=== PATIENT | female | born 1940 | race Caucasian/White ===

== ENCOUNTER → 2021-11-17 11:49 | Outpatient (CLI) | payer MEDICARE, OTHER, SELFPAY ==
[2021-11-17 12:43] LABS: COVID19 -Nasal RAPID Negative (Negative)
== END ==
PROVIDERS: Visit Provider Physician Assistant
DX: R05.9 Cough, unspecified (principal); R09.89 Other specified symptoms and signs involving the circulatory and respiratory systems
CPT/HCPCS: 87635

== ENCOUNTER → 2022-06-24 07:51 | Outpatient (CLI) | payer MEDICARE, OTHER, SELFPAY ==
--- NOTE | 2022-06-24 | DI.ECHO.S_ITS ---
[facility]---------+ [facility] +---------+ : : [address] : : : : [id number] : : : : Phone: [phone]+ Echocardiogram Report + + :Name: TONE CASTILLO Study Date: 06/24/2022 Height: 65 in : [id number] ReadingLocation: Weight: 139 lb : : Gender: Female BSA: 1.7 m2 : :: 1940 Age: 82 yrs BP: 141/71 mmHg: :Reason For Study: Cardiomyopathy : :Ordering Physician: CHARLY, : :ROXANNA Performed By: Edward Yee : :Referring: ROXANNA SINGH : + + Interpretation Summary 1) Normal left ventricular thickness, size, wall motion, and systolic function (EF 55-60%). 2) Normal right ventricular size and function. 3) No significant valvular abnormalities. 4) No prior Echo available for comparison. Procedure: A two-dimensional transthoracic echocardiogram with color flow and Doppler was performed. The study quality was technically adequate. There is no prior echocardiogram noted for this patient. Left Ventricle: The left ventricle is normal in size and wall thickness. Left ventricular systolic function is normal. The ejection fraction is estimated to be 55-60%. There are no focal wall motion abnormalities. Diastolic parameters suggest probable normal left ventricular diastolic function and normal filling pressures. Right Ventricle: The right ventricle is normal in size and function. Atria: Both atria are normal in size. The interatrial septum grossly appears intact with no obvious evidence for an atrial septal defect. Mitral Valve: The mitral valve is normal in structure and function. There is trace mitral regurgitation. Aortic Valve: The aortic valve is normal in structure and function. There is no aortic valve stenosis. No aortic regurgitation is present. Tricuspid Valve: The tricuspid valve is normal in structure and function. There is mild tricuspid regurgitation. The right ventricular systolic pressure is estimated to be at least 22 mmHg based on an estimated right atrial pressure of 3 mm Hg. Pulmonic Valve: The pulmonic valve is normal in structure and function. There is a trace or physiologic amount of pulmonic regurgitation. Great Vessels: The aortic root is normal size. The dimensions of the ascending aorta are normal. The IVC is of normal diameter and collapses greater than 50% with a sniff. This suggests a low right atrial pressure of 3 mm Hg. Pericardium/ Pleura There is no pericardial effusion. There is no pleural effusion. MMode/2D Measurements & Calculations LVIDd: 5.0 cm LVOT diam: 2.2 cm LVIDs: 3.6 cm Ao root diam: 3.1 cm FS: 28.0 % asc Aorta Diam: 3.5 cm IVSd: 1.1 cm LVPWd: 0.80 cm LV english. diameter/BSA (cm/m^2): 3.0 LV sys. diameter/BSA (cm/m^2): 2.1 LA dimension: 3.6 cm RA long axis: 5.1 cm LA A2 area: 20.9 cm2 IVC diam: 2.0 cm LA A4 area: 18.2 cm2 LA length (vol): 5.7 cm LA vol: 56.6 ml LA vol index: 33.4 ml/m2 TAPSE_phl: 2.5 cm Doppler Measurements & Calculations Ao V2 max: 81.8 cm/sec LVOT Max Ellis: 66.6 cm/sec Ao V2 mean: 60.6 cm/sec LV V1 max P.8 mmHg Ao max P.0 mmHg LV V1 VTI: 17.9 cm Ao mean P.0 mmHg OMERO(I,D): 3.5 cm2 Ao V2 VTI: 19.6 cm OMERO(V,D): 3.1 cm2 sev ratio: 0.91 OMERO indexed to BSA (cm^2/m^2): 2.0 MV E max ellis: 50.1 cm/sec TR max ellis: 219.0 cm/sec MV A max ellis: 78.0 cm/sec TR max P.2 mmHg MV E/A: 0.64 Med Peak E' Ellis: 5.7 cm/sec E/E' med: 8.8 Lat Peak E' Ellis: 6.1 cm/sec E/E' lat: 8.2 E/e' average: 8.5 MV dec time: 0.20 sec SV(LVOT): 68.0 ml AV VR_phl: 0.81 OMERO(VTI)/BSA_phl: 2.0 MV P1/2t-pr_phl: 57.0 msec Reading Physician:11:46 AM
== END ==
PROVIDERS: PCP Family Medicine; Referring Provider Internal Medicine Cardiovascular Disease; Visit Provider Internal Medicine Cardiovascular Disease
DX: I49.3 Ventricular premature depolarization (principal); I47.1 Supraventricular tachycardia; I07.1 Rheumatic tricuspid insufficiency
CPT/HCPCS: 93306

== ENCOUNTER 2023-08-10 06:42 | Inpatient (IN) | payer MEDICARE, OTHER, SELFPAY ==
[2023-08-10] VITALS (24 sets, daily range): BP systolic 98–150; BP diastolic 37–72; PULSE 51–69; RESP 11–38; TEMP 36.2–37.2; O2SAT 91–97; BMI 24.0
--- NOTE | 2023-08-10 | DI.RAD.S_ITS ---
PROCEDURE: XR PELVIS 1-2V INDICATIONS: POST OP TECHNIQUE: Intra-operative view of the pelvis and hip acquired. COMPARISON: [facility], , XR PELVIS 1-2V, 08/10/2023, 14:58. FINDINGS: Bones: Intraoperative devices prior to placement of arthroplasty prostheses are in expected positions. No fractures or suspicious bony lesions. Soft tissues: Overlying surgical retractors are present, along with other intraoperative changes. IMPRESSION: Intraoperative left hip prosthesis radiographs Approved by: Oj Park M.D. on 08/10/2023 at 17:34
--- NOTE | 2023-08-10 06:45 | DI.RAD.S_ITS ---
PROCEDURE: XR HIP W PEL IF DONE LT 2V INDICATIONS: Left hip pain after ground-level fall. TECHNIQUE: 2 views of the hip were acquired. COMPARISON: None. FINDINGS: Bones: Transverse fracture through the mid left femoral neck noted with superior subluxation of the distal fracture fragment. Femoral head resides appropriately in acetabulum. Pelvic ring intact. Soft tissues: No suspicious soft tissue calcifications or masses. IMPRESSION: Displaced left femoral neck fracture Note: This final report is concordant with the preliminary after-hours interpretation provided by [employer] Approved by: Oj Park M.D. on 08/10/2023 at 8:09
--- NOTE | 2023-08-10 07:02 | DI.RAD.S_ITS ---
PROCEDURE: XR CHEST 1V INDICATIONS: fall TECHNIQUE: One view of the chest was acquired. COMPARISON: None. FINDINGS: Surgical changes and devices: None. Lungs and pleura: Lungs are clear. No pleural effusions or pneumothorax. Mediastinum: Mediastinal contours appear normal. Heart size is normal. Retrocardiac hiatal hernia. Atherosclerotic vascular calcification noted in the aortic arch. Bones and chest wall: No suspicious bony lesions. Overlying soft tissues appear unremarkable. IMPRESSION: No acute cardiopulmonary findings. Hiatal hernia. Note: This final report is concordant with the preliminary after-hours interpretation provided by [employer] Approved by: Oj Park M.D. on 08/10/2023 at 8:08
--- NOTE | 2023-08-10 07:17 | ED_ITS ---
HPI - Extremity Injury (Lower) General Chief Complaint: Extremity Injury, Lower Stated Complaint: GLF last night. L hip pain Time Seen by Provider: 08/10/23 06:45 Source: patient and EMS Mode of arrival: EMS History of Present Illness HPI Narrative: Patient 83-year-old female history hyperlipidemia, hypertension presenting today with ground level fall. She reports that around 6:00 p.m. last night shows getting out of her recliner when she tripped and fell onto her left side. She initially was able to get up however this morning she was moving around and heard a pop. Unable to bear weight. She denies hitting her head no loss of c onsciousness no nausea or vomiting. No other injury. She is not on any antiplatelet or anticoagulation medication. Related Data Home Medications Medication Instructions Recorded Confirmed alendronate 70 mg tablet (Fosamax) 70 mg PO QWEEK 11/17/21 11/17/21 famotidine 10 mg tablet 10 mg PO DAILY 11/17/21 11/17/21 lovastatin 10 mg tablet 10 mg PO DAILY 11/17/21 11/17/21 propranolol 60 mg capsule,24 60 mg PO DAILY 11/17/21 11/17/21 hr,extended release Allergies Allergy/AdvReac Type Severity Reaction Status Date / Time No Known Drug Allergies Allergy Unverified 11/17/21 11:25 Review of Systems Review of Systems ROS Unobtainable: All systems reviewed & are unremarkable except as noted in HPI and below Patient History Social History Smoking Status: Never smoker Smoking Status: Never smoker Substance Use Type: does not use Exam Initial Vital Signs Initial Vital Signs: Vital Signs Temperature 97.5 F L 08/10/23 06:45 Pulse Rate 56 L 08/10/23 06:45 Respiratory Rate 18 08/10/23 06:45 Blood Pressure 131/63 08/10/23 06:45 Pulse Oximetry 91 08/10/23 06:45 Oxygen Delivery Method Room Air 08/10/23 06:45 GENERAL: Alert 83-year-old female well-appearing and in no acute distress. HEENT: Head atraumatic,EOMI, pupils reactive, face symmetric, moist mucous mem branes CARDIOVASCULAR: Regular rate and rhythm without murmurs, rubs or gallops. RESPIRATORY: Breath sounds equal bilaterally, no wheezes rales or rhonchi. ABDOMEN: Soft, nontender. Normoactive bowel sounds all 4 quadrants. No guarding or rebound. EXTREMITIES: Normal range of motion, no clubbing or edema. Neurovascularly intact Left leg shortened internally rotated distal pedal pulse intact pain at hip right hip is nontender NEUROLOGICAL: Alert and oriented x4. SKIN: Warm, dry, no laceration, no petechiae, no rashes or lesions. Course Orders Ordered: ED Orders 08/10/23 06:45 XR hip w pel if done LT 2V Stat 08/10/23 07:02 Chest [XR chest 1V] Stat 08/10/23 07:47 CBC Auto Diff [Complete Blood Count AUTO DIFF] Stat CMP [Comprehensive Metabolic Panel] Stat Acetaminophen (Acetaminophen 325 Mg Tablet) 650 mg PO Q6H PRN PRN Reason: Fever/Mild Pain (1-3) Sodium Chloride (Normal Saline 0.9%) 1,000 mls @ 100 mls/hr IV CONT RACQUEL Stop: 08/10/23 21:14 Last Admin: 08/10/23 09:45 Dose: 100 mls/hr Documented By: JESS Melatonin (Melatonin 3 Mg Tablet) 6 mg PO BEDTIME PRN PRN Reason: Insomnia Morphine Sulfate (Morphine 2 Mg/Ml Inj) 2 mg IV Q4HR PRN PRN Reason: Pain, Moderate (4-6) Naloxone HCl (Naloxone 0.4 Mg/Ml Vial) 0.2 mg IV Q2MIN PRN PRN Reason: Opiate Reversal Ondansetron HCl (Ondansetron 4 Mg/2 Ml Inj) 4 mg IV Q8HR PRN PRN Reason: Nausea And Vomiting Last Admin: 08/10/23 09:45 Dose: 4 mg Documented By: JESS Oxycodone HCl (Oxycodone Ir 5 Mg Tablet) 5 mg PO Q4HR PRN PRN Reason: Pain, Moderate (4-6) Oxycodone HCl (Oxycodone Ir 10 Mg Tablet) 10 mg PO Q4HR PRN PRN Reason: Pain, Severe (7-10) Last Admin: 08/10/23 09:47 Dose: 10 mg Documented By: JESS Polyethylene Glycol (Polyethylene Glycol 3350 17 Gm Powd.Pack) 17 gm PO DAILY PRN PRN Reason: Constipation Propranolol HCl (Propranolol 10 Mg Tablet) 30 mg PO BID RACQUEL Sennosides (Sennosides 8.6 Mg Tablet) 8.6 mg PO BID PRN PRN Reason: Constipation Discontinued Medications Morphine Sulfate (Morphine 2 Mg/Ml Inj) 2 mg IV NOW ONE Stop: 08/10/23 07:18 Last Admin: 08/10/23 07:28 Dose: 2 mg Documented By: NR Vital Signs Vital signs: Vital Signs - 8 hr 08/10/23 06:45 08/10/23 06:48 08/10/23 06:48 Temperature 97.5 F L Pulse Rate 56 L 57 L Respiratory Rate 18 18 Blood Pressure 131/63 128/60 Pulse Oximetry 91 92 Oxygen Delivery Method Room Air Room Air 08/10/23 07:00 08/10/23 07:00 08/10/23 07:30 Temperature Pulse Rate 58 L 52 L Respiratory Rate 15 24 Blood Pressure 149/65 H Pulse Oximetry 92 91 Oxygen Delivery Method 08/10/23 07:31 08/10/23 07:31 08/10/23 08:00 Temperature Pulse Rate 51 L 54 L Respiratory Rate 23 27 H Blood Pressure 142/66 H Pulse Oximetry 92 95 Oxygen Delivery Method 08/10/23 08:01 08/10/23 08:01 08/10/23 08:30 Temperature Pulse Rate 54 L Respiratory Rate 30 H Blood Pressure 131/60 141/60 H Pulse Oximetry 96 Oxygen Delivery Method 08/10/23 08:30 08/10/23 09:00 08/10/23 09:01 Temperature Pulse Rate 51 L 58 L 57 L Respiratory Rate 26 H 34 H 38 H Blood Pressure Pulse Oximetry 96 95 94 Oxygen Delivery Method 08/10/23 09:01 Temperature Pulse Rate Respiratory Rate Blood Pressure 145/61 H Pulse Oximetry Oxygen Delivery Method MDM - Extremity Injury (Lower) Lab Data 08/10/23 07:47 08/10/23 07:47 Labs: Lab Results 08/10/23 08/10/23 08/10/23 Range/Units 07:47 07:47 07:47 WBC 8.5 (4.5-11.0) X10^3/uL RBC 4.24 (4.0-5.2) X10^6/uL Hgb 12.8 (12.0-16.0) g/dL Hct 37.8 (36-46) % MCV 89.1 (80-100) fL MCH 30.2 (26-34) PG MCHC 33.9 (30-36) % RDW 13.6 (11.6-14.8) % Plt Count 74 L (150-400) X10^3/uL Neut % (Auto) 81.9 H (50-75) % Lymph % (Auto) 7.4 L (25-40) % Linn % (Auto) 9.3 (3-14) % Eos % (Auto) 1.0 L (2-4) % Baso % (Auto) 0.4 (0-2) % Neut # (Auto) 7000 (0684-1360) /uL Lymph # (Auto) 600 L (2151-2456) /uL Linn # (Auto) 800 (0-900) /uL Eos # (Auto) 100 (0-450) /uL Baso # (Auto) 0 (0-100) /uL PT (10.1-12.7) SECONDS INR (0.9-1.3) Sodium 130 L (137-145) mmol/L Potassium 3.8 (3.4-5.1) mmol/L Chloride 101 (98-107) mmol/L Carbon Dioxide 29 (22-32) mmol/L BUN 20 H (7-17) mg/dL Creatinine 0.68 (0.52-1.04) mg/dL Estimated GFR > 60 (>60) mL/min BUN/Creatinine Ratio 29.4 H (6-22) Glucose 120 H (80-110) mg/dL Calcium 8.1 L (8.4-10.2) mg/dL Magnesium 2.0 (1.6-2.3) mg/dL Total Bilirubin 1.1 (0.2-1.3) mg/dL AST 30 (14-36) IU/L ALT 22 (<35) IU/L Alkaline Phosphatase 62 (38-126) U/L Total Protein 6.0 L (6.3-8.2) g/dL Albumin 3.5 (3.5-5.0) g/dL Globulin 2.5 (1.7-4.1) g/dL Albumin/Globulin Ratio 1.4 (1.0-2.8) 08/10/23 Range/Units 07:47 WBC (4.5-11.0) X10^3/uL RBC (4.0-5.2) X10^6/uL Hgb (12.0-16.0) g/dL Hct (36-46) % MCV (80-100) fL MCH (26-34) PG MCHC (30-36) % RDW (11.6-14.8) % Plt Count (150-400) X10^3/uL Neut % (Auto) (50-75) % Lymph % (Auto) (25-40) % Linn % (Auto) (3-14) % Eos % (Auto) (2-4) % Baso % (Auto) (0-2) % Neut # (Auto) (7391-3285) /uL Lymph # (Auto) (2460-4142) /uL Linn # (Auto) (0-900) /uL Eos # (Auto) (0-450) /uL Baso # (Auto) (0-100) /uL PT 13.3 H (10.1-12.7) SECONDS INR 1.2 (0.9-1.3) Sodium (137-145) mmol/L Potassium (3.4-5.1) mmol/L Chloride (98-107) mmol/L Carbon Dioxide (22-32) mmol/L BUN (7-17) mg/dL Creatinine (0.52-1.04) mg/dL Estimated GFR (>60) mL/min BUN/Creatinine Ratio (6-22) Glucose (80-110) mg/dL Calcium (8.4-10.2) mg/dL Magnesium (1.6-2.3) mg/dL Total Bilirubin (0.2-1.3) mg/dL AST (14-36) IU/L ALT (<35) IU/L Alkaline Phosphatase (38-126) U/L Total Protein (6.3-8.2) g/dL Albumin (3.5-5.0) g/dL Globulin (1.7-4.1) g/dL Albumin/Globulin Ratio (1.0-2.8) Imaging Data Extremity x-ray #1: Radiologist's Impression: PROCEDURE:? XR HIP W PEL IF DONE LT 2V ? INDICATIONS:? Left hip pain after ground-level fall. ? TECHNIQUE:? 2 views of the hip were acquired.? ? COMPARISON:? None. ? FINDINGS:? ? Bones:? Transverse fracture through the mid left femoral neck noted with superior subluxation of the distal fracture fragment.? Femoral head resides appropriately in acetabulum.? Pelvic ring intact. ? Soft tissues:? No suspicious soft tissue calcifications or masses.? ? IMPRESSION:? ? Displaced left femoral neck fracture ? ? Note:? This final report is concordant with the preliminary after-hours interpretation provided by [employer] ? Approved by: Oj Park M.D. on 08/10/2023 at 8:09? Chest x-ray: Radiologist's Impression: PROCEDURE:? XR CHEST 1V ? INDICATIONS:? fall ? TECHNIQUE:? One view of the chest was acquired.? ? COMPARISON:? None. ? FINDINGS:? ? Surgical changes and devices:? None.? ? Lungs and pleura:? Lungs are clear.? No pleural effusions or pneumothorax.? ? Mediastinum:? Mediastinal contours appear normal.? Heart size is normal.? Retrocardiac hiatal hernia. Atherosclerotic vascular calcification noted in the aortic arch. ? Bones and chest wall:? No suspicious bony lesions.? Overlying soft tissues appear unremarkable.? ? ? IMPRESSION:? ? No acute cardiopulmonary findings. Hiatal hernia. ? ? Note:? This final report is concordant with the preliminary after-hours interpretation provided by [employer] ? Approved by: Oj Park M.D. on 08/10/2023 at 8:08? [facility] Narrative Medical decision making narrative: Patient 83-year-old female with minimal comorbidities presenting today with left hip pain after fall. X-ray confirms a left femoral neck fracture. No other injuries reported not on antiplatelet or anticoagulation medication. Blood work is overall reassuring. Dr. Glorai ortho updated on patient's symptoms test results Dr. Riley accepts patient Discharge Plan Departure Patient Disposition: Admitted As Inpatient Clinical Impression: Closed hip fracture Admit Date/Time: 08/10/23 09:05 Admit Provider: Nadeem Riley
[2023-08-10] MEDS: MORPHINE 2 MG/ML INJ IV (07:28)
[2023-08-10 07:59] LABS: Add Manual Diff / Slide Review NO; Basophils Absolute Auto 0 /uL (0-100); Basophils Percent Auto 0.4 % (0-2); Eosinophils Absolute Auto 100 /uL (0-450); Hematocrit 37.8 % (36-46); Hemoglobin 12.8 g/dL (12.0-16.0); Lymphocytes Absolute Auto 600 /uL (1100-4500); Lymphocytes Percent Auto 7.4 % (25-40); Mean Corpuscular HGB Conc 33.9 % (30-36); Mean Corpuscular Hemoglobin 30.2 PG (26-34); Mean Corpuscular Volume 89.1 fL (80-100); Monocytes Absolute Auto 800 /uL (0-900); Monocytes Percent Auto 9.3 % (3-14); Neutrophils Absolute Auto 7000 /uL (1500-7000); Neutrophils Percent Auto 81.9 % (50-75); Platelet Count 74 X10^3/uL (150-400); Red Blood Cell Count 4.24 X10^6/uL (4.0-5.2); Red Cell Distribution Width 13.6 % (11.6-14.8); White Blood Cell Count 8.5 X10^3/uL (4.5-11.0)
[2023-08-10 08:06] LABS: Alanine Aminotransferase 22 IU/L (<35); Albumin 3.5 g/dL (3.5-5.0); Albumin Globulin Ratio 1.4 (1.0-2.8); Alkaline Phosphatase 62 U/L (38-126); Aspartate Aminotransferase 30 IU/L (14-36); BUN Creatinine Ratio 29.4 (6-22); Bilirubin Total 1.1 mg/dL (0.2-1.3); Blood Urea Nitrogen 20 mg/dL (7-17); Calcium 8.1 mg/dL (8.4-10.2); Carbon Dioxide 29 mmol/L (22-32); Chloride 101 mmol/L (98-107); Estimated Glomerular Filt Rate > 60 mL/min (>60); Globulin 2.5 g/dL (1.7-4.1); Glucose 120 mg/dL (80-110); HEMOLYSIS < 15 (0-50); Potassium 3.8 mmol/L (3.4-5.1); Sodium 130 mmol/L (137-145)
--- NOTE | 2023-08-10 09:11 | PM.HP.1 ---
History of Present Illness History of Present Illness Date Patient Seen: 08/10/23 Time Patient Seen: 14:00 Chief complaint: GLF last night. L hip pain Narrative: Ayad Whitley is an 83-year-old female with past medical history of osteoporosis, hypertension, and hyperlipidemia who presents with ground level fall resulting in left femoral neck fracture. Patient was getting up out of her recliner and lost her balance, landing on the hardwood floor on her left side. She had pain in her hip but only thought it was bruised because she was able to bear some weight on it. She waited until the next day and the pain continued to worsen so she presented to the ED where a left hip fracture was confirmed. She currently says her pain is manageable if she doesn't move her left leg. She denies striking her head. Did not lose consciousness. She denies lightheadedness, CP, SOB, NV, abd pain, dysuria or diarrhea. [facility] Social History household members: spouse Smoking Status: Never smoker alcohol intake: never Meds Home Medications and Allergies Home Medications Medication Instructions Recorded Confirmed Type alendronate 70 mg tablet (Fosamax) 70 mg PO QWEEK 11/17/21 11/17/21 History famotidine 10 mg tablet 10 mg PO DAILY 11/17/21 11/17/21 History lovastatin 10 mg tablet 10 mg PO DAILY 11/17/21 11/17/21 History propranolol 60 mg capsule,24 60 mg PO DAILY 11/17/21 11/17/21 History hr,extended release Allergies Allergy/AdvReac Type Severity Reaction Status Date / Time No Known Drug Allergies Allergy Unverified 11/17/21 11:25 Review of Systems Review of Systems Narrative: All other systems reviewed with the patient and are negative unless otherwise stated. Exam Vital Signs (past 8 hours): - 08/10/23 06:45 08/10/23 06:48 08/10/23 06:48 Temperature 97.5 F L Pulse Rate 56 L 57 L Respiratory Rate 18 18 Blood Pressure 131/63 128/60 Pulse Oximetry 91 92 Oxygen Delivery Method Room Air Room Air 08/10/23 07:00 08/10/23 07:00 08/10/23 07:30 Temperature Pulse Rate 58 L 52 L Respiratory Rate 15 24 Blood Pressure 149/65 H Pulse Oximetry 92 91 Oxygen Delivery Method 08/10/23 07:31 08/10/23 07:31 08/10/23 08:00 Temperature Pulse Rate 51 L 54 L Respiratory Rate 23 27 H Blood Pressure 142/66 H Pulse Oximetry 92 95 Oxygen Delivery Method 08/10/23 08:01 08/10/23 08:01 08/10/23 08:30 Temperature Pulse Rate 54 L Respiratory Rate 30 H Blood Pressure 131/60 141/60 H Pulse Oximetry 96 Oxygen Delivery Method 08/10/23 08:30 08/10/23 09:00 08/10/23 09:01 Temperature Pulse Rate 51 L 58 L 57 L Respiratory Rate 26 H 34 H 38 H Blood Pressure Pulse Oximetry 96 95 94 Oxygen Delivery Method 08/10/23 09:01 Temperature Pulse Rate Respiratory Rate Blood Pressure 145/61 H Pulse Oximetry Oxygen Delivery Method Oxygen Delivery Method Room Air Narrative Exam Narrative: GEN: no acute distress, pleasant eldlerly woman HEENT: moist mucous membranes, PERRL NECK: trachea midline, no JVD CV: regular rate and rhythm, no murmurs PULM: clear bilaterally ABD: soft, nontender, nondistended, no organomegaly EXT: warm and well perfused with no edema, LLE externally rotated NEURO: awake, alert, oriented, no focal deficits Objective Labs 08/10/23 07:47 08/10/23 07:47 Labs: Laboratory Results - last 24 hr 08/10/23 08/10/23 07:47 07:47 WBC 8.5 RBC 4.24 Hgb 12.8 Hct 37.8 MCV 89.1 MCH 30.2 MCHC 33.9 RDW 13.6 Plt Count 74 L Neut % (Auto) 81.9 H Lymph % (Auto) 7.4 L Vernon % (Auto) 9.3 Eos % (Auto) 1.0 L Baso % (Auto) 0.4 Neut # (Auto) 7000 Lymph # (Auto) 600 L Vernon # (Auto) 800 Eos # (Auto) 100 Baso # (Auto) 0 Sodium 130 L Potassium 3.8 Chloride 101 Carbon Dioxide 29 BUN 20 H Creatinine 0.68 Estimated GFR > 60 BUN/Creatinine Ratio 29.4 H Glucose 120 H Calcium 8.1 L Total Bilirubin 1.1 AST 30 ALT 22 Alkaline Phosphatase 62 Total Protein 6.0 L Albumin 3.5 Globulin 2.5 Albumin/Globulin Ratio 1.4 Assessment & Plan Assessment and plan (1) Fracture of left hip due to osteoporosis: Status: Acute (2) Closed hip fracture: Status: Acute (3) Thrombocytopenia: Status: Acute Assessment & Plan narrative: # left hip fracture -tripped after getting out of recliner -hip x-ray confirms left femoral neck fracture -Dr. Faizan shaw consulted -pain control as needed -NPO for surgery today, will need total hip replacement per ortho # osteoporosis -patient currently on Fosamax weekly, holding while admitted -would likely benefit from addition of injectable osteoporosis medications ground level fall resulting in hip fracture -f/u with PCP # hyperlipidemia -hold lovastatin as not on formulary # hypertension -continue home propranolol Code status is full code. DVT prophylaxis with SCDs. Proxy is Anton. I have reviewed home meds and used all available resources to reconcile the home meds. Case discussed with ED physician/APC and patient will be admitted to the hospitalist service for further workup and management. This patient will be admitted as inpatient and will require greater than 2 midnights of hospital time to treat left hip fracture.
[2023-08-10 09:20] LABS: INR 1.2 (0.9-1.3); Prothrombin Time 13.3 SECONDS (10.1-12.7)
[2023-08-10] MEDS: SODIUM CHLORIDE 0.9% 1,000 ML 100 ML IV (09:45)
[2023-08-10] MEDS: ONDANSETRON 4 MG/2 ML INJ IV ×2 (09:45→17:36)
[2023-08-10] MEDS: OXYCODONE IR 10 MG TABLET PO (09:47)
--- NOTE | 2023-08-10 10:21 | PM.CN ---
History of Present Illness Consult details Date Patient Seen: 08/10/23 Time Patient Seen: 10:00 Chief complaint: GLF last night. L hip pain Narrative: 83-year-old female who tripped and fell last night landing on her left hip. Patient was initially still able to ambulate. Had pain to the hip but was still able to get around. From the fall denies any loss of consciousness or hitting her head. Then early this morning she got up to go to bathroom and felt a pop to the hip and then had a increase in pain and difficulty ambulating. Due to this fact patient was taken to the emergency room where x-rays showed a displaced femoral neck fracture. Meds Home Medications and Allergies Home Medications Medication Instructions Recorded Confirmed Type alendronate 70 mg tablet (Fosamax) 70 mg PO QWEEK 11/17/21 11/17/21 History famotidine 10 mg tablet 10 mg PO DAILY 11/17/21 11/17/21 History lovastatin 10 mg tablet 10 mg PO DAILY 11/17/21 11/17/21 History propranolol 60 mg capsule,24 60 mg PO DAILY 11/17/21 11/17/21 History hr,extended release Allergies Allergy/AdvReac Type Severity Reaction Status Date / Time No Known Drug Allergies Allergy Unverified 11/17/21 11:25 Exam Vital Signs (past 8 hours): - 08/10/23 06:45 08/10/23 06:48 08/10/23 06:48 Temperature 97.5 F L Pulse Rate 56 L 57 L Respiratory Rate 18 18 Blood Pressure 131/63 128/60 Pulse Oximetry 91 92 Oxygen Delivery Method Room Air Room Air 08/10/23 07:00 08/10/23 07:00 08/10/23 07:30 Temperature Pulse Rate 58 L 52 L Respiratory Rate 15 24 Blood Pressure 149/65 H Pulse Oximetry 92 91 Oxygen Delivery Method 08/10/23 07:31 08/10/23 07:31 08/10/23 08:00 Temperature Pulse Rate 51 L 54 L Respiratory Rate 23 27 H Blood Pressure 142/66 H Pulse Oximetry 92 95 Oxygen Delivery Method 08/10/23 08:01 08/10/23 08:01 08/10/23 08:30 Temperature Pulse Rate 54 L Respiratory Rate 30 H Blood Pressure 131/60 141/60 H Pulse Oximetry 96 Oxygen Delivery Method 08/10/23 08:30 08/10/23 09:00 08/10/23 09:01 Temperature Pulse Rate 51 L 58 L 57 L Respiratory Rate 26 H 34 H 38 H Blood Pressure Pulse Oximetry 96 95 94 Oxygen Delivery Method 08/10/23 09:01 Temperature Pulse Rate Respiratory Rate Blood Pressure 145/61 H Pulse Oximetry Oxygen Delivery Method Oxygen Delivery Method Room Air Narrative Exam Narrative: On exam elderly female who is alert and oriented x3 in no apparent distress. Bilateral upper extremities are free of any injury swelling or instability. Good range of motion of bilateral upper extremities with no pain. Right lower extremity also free of any abnormalities. Left lower extremity shows signs of shortening and internal rotation. Positive dorsiflexion and plantar flexion of the toes and ankle. Palpable pedal pulses. No sign of any ankle or knee swelling or instability. And compartments are soft. Objective Labs 08/10/23 07:47 08/10/23 07:47 Labs: Laboratory Results - last 24 hr 08/10/23 08/10/23 08/10/23 07:47 07:47 07:47 WBC 8.5 RBC 4.24 Hgb 12.8 Hct 37.8 MCV 89.1 MCH 30.2 MCHC 33.9 RDW 13.6 Plt Count 74 L Neut % (Auto) 81.9 H Lymph % (Auto) 7.4 L [place] % (Auto) 9.3 Eos % (Auto) 1.0 L Baso % (Auto) 0.4 Neut # (Auto) 7000 Lymph # (Auto) 600 L [place] # (Auto) 800 Eos # (Auto) 100 Baso # (Auto) 0 PT INR Sodium 130 L Potassium 3.8 Chloride 101 Carbon Dioxide 29 BUN 20 H Creatinine 0.68 Estimated GFR > 60 BUN/Creatinine Ratio 29.4 H Glucose 120 H Calcium 8.1 L Magnesium 2.0 Total Bilirubin 1.1 AST 30 ALT 22 Alkaline Phosphatase 62 Total Protein 6.0 L Albumin 3.5 Globulin 2.5 Albumin/Globulin Ratio 1.4 08/10/23 07:47 WBC RBC Hgb Hct MCV MCH MCHC RDW Plt Count Neut % (Auto) Lymph % (Auto) [place] % (Auto) Eos % (Auto) Baso % (Auto) Neut # (Auto) Lymph # (Auto) [place] # (Auto) Eos # (Auto) Baso # (Auto) PT 13.3 H INR 1.2 Sodium Potassium Chloride Carbon Dioxide BUN Creatinine Estimated GFR BUN/Creatinine Ratio Glucose Calcium Magnesium Total Bilirubin AST ALT Alkaline Phosphatase Total Protein Albumin Globulin Albumin/Globulin Ratio PFSH Tobacco & Substance Use Smoking Status: Never smoker Assessment & Plan Assessment & Plan narrative: Patient with a displaced left femoral neck fracture. Due to this injury patient will require a left hip hemiarthroplasty. Went over the procedure with the patient today. I will talk to my partners today who do hip replacements and we can figure out a timeframe for her surgery.
[2023-08-10] MEDS: PROPRANOLOL 10 MG TABLET 30 MG PO (12:28)
--- NOTE | 2023-08-10 14:03 | P.OP_ITS ---
Operative Date/Time/Diagnoses Date of procedure: 08/10/23 Time of procedure: 14:30 Pre-op diagnosis: Left femoral neck fracture, displaced Left osteoporotic hip fracture Thrombocytopenia chronic Post-op diagnosis: same Procedure & Clinicians Procedure: Partial hip replacement, endoprosthetic fixation of left femoral neck fracture CPT code 37655 Same procedure as scheduled: Yes Indications: Patient is an 83-year-old female that had a fall directly onto her left hip last night . she initially thought it was a bruise but was unable to ambulate the next morning was brought to the emergency room and diagnosed with a displaced left femoral neck fracture. She is a known history of osteoporosis has been on alendronate for several years. She was a community ambulator, does not use assistive devices. Lives at with her and walks a mile every day. No previous hip problems. Her daughter is with her in the room today. She is been indicated for endoprosthetic fixation of her left femoral neck fracture with a partial hip replacement. The risks and benefits of the procedure have been discussed with the patient and given the opportunity to ask questions. The risks of surgery include but are not limited to infection, periprosthetic fracture, persistence of pain, damage to nerves and blood vessels, posttraumatic arthritis, DVT, PE, cardiopulmonary complications and . The patient expressed a thorough understanding of the risks and benefits of surgery and has elected to proceed. Consent was signed today. The site of surgery was marked. During the operation, the services of a physician surgical appliance fitter were medically indicated and necessary to provide the exposure of the operative site for the surgical procedure and to maintain the limb in a proper position to carry out the operation safely and efficiently. Without a qualified residential living assistant being present this would extended the operative procedure and made the procedure technically more difficult to perform. Surgeon: Keesha Rudolph Transfer Car Operator Drier: Joellen Jacob Anesthesia Type: General and Local Operative Notes Findings: Displaced left femoral neck fracture Closure Type: primary Specimen(s): none sent Prosthetic devices, grafts, tissues, transplants, or devices: Lux +Nephew Synergy femur size 12, cemented Tandem head size unipolar 50 mm Neck +4 Centralizer 9 mm Restrictor small Estimated Blood Loss (mL): 200 Blood products transfused: none Tourniquet time (min): 0 Procedure in detail: Hemiarthroplasty for femoral neck fracture CPT code 94336. Patient was seen in the preoperative area the site of surgery was marked and informed consent confirmed. The patient was brought back to the operating room by the anesthesia team. Patient was positioned supine on the operative table. General anesthetic was administered. Patient was then moved into the lateral position. The hip entertainment centre manager positioner pads were then placed. A well-padded axillary roll was placed and the arms were appropriately positioned. The affected lower extremity was prepped and draped from the ankle to the iliac crest with ChloraPrep in the standard fashion sterile drapes were placed. Formal time-out procedure was performed confirming the patient's side and site of surgery, presence of informed consent, administration of appropriate preoperative antibiotics. Hip was approached through a standard posterior a pproach. Dissection was carried down through the skin and subcutaneous tissues sharply through the skin and then with the Bovie through the subcutaneous tissues. The fascia ron was exposed and opened. Fascia was opened using the Bovie and the gluteus gumaro was spread with finger retraction. The Charnley retractor was placed. The inflamed bursa was resected. The piriformis was then identified. A Cobra retractor was placed under the gluteus medius to help expose the external rotators. The werewolf cauterizer was used to expose the external rotators and obtained hemostasis. The piriformis and short external rotators were tagged with a 2. FiberWire and divided of the trochanter. These were then retracted posteriorly to protect sciatic nerve. The femur was then flexed and internally rotated to present the femoral neck and the fracture. A neck cut was made and removed to expose the fracture and femoral head. A corkscrew and a Souza were used to remove the femoral head from the acetabulum. This was measured to fit a 50 mm head. Next the femur was presented. A clean- up neck cut was made fashion. The trial head size was trialed in the acetabulum. Attention was then turned to the femur. The canal was opened with a box cutting osteotome. This followed by the canal finer and a lateralizing Reamer. The tapered reamers were then used up to a size 12. Then broaching was sequentially done up to a size 12. Trial components were placed. The patient was stable in the position of sleep, squatting and could be put through a range of motion with 70? of internal rotation without dislocation. This was felt to be appropriate. An intraop a AP pelvis x-ray was obtained to assess component position. This was a little varus and the neck cut was a little high so this w as removed the neck cut recut and additional lateral bone taken and then the 12 broach was placed back in and the calcar planer was used and the head and neck trials placed back in place. Another intraoperative x-ray was taken that confirmed appropriate alignment of the stem. Leg lengths were just a few mm shortened it was felt that the +4 would be an appropriate neck. Final components were then selected. The final stem was a size 12. Femoral canal was prepared . The distal small restrictor was placed approximately 1 cm distal to the end of the planned implant. The bone was meticulously cleaned with pulse lavage. Canal was then packed with epi soaked gauze. Two packages of cement were mixed and carefully pressurized into the femoral canal. The femoral component was then placed without difficulty. This was held in place until the cement hardened-15 minutes. The repeat trial reduction showed good range of motion and stability. And equal lengths at the knees and heels. The final head and neck were then carefully placed. The wound was irrigated. The capsule and muscular flap was repaired with the 2. Ethibond. Next the short external rotators were repaired to the greater trochanter through drill holes in the greater trochanter using the 2.5 drill and a HoGlowing [place] suture Passer. These were tied with the leg in abduction. The wound was then irrigated again. The fascia ron was closed with 0 Vicryl and the subcutaneous layer was closed with 2-0 Vicryl and the skin with lynn. An Aquacel dressing was placed. A pillow was placed for protection. The drapes removed and the patient was taken to the recovery room in good condition. There no immediate complications from this procedure. All counts were correct. Postoperative AP pelvis x-ray was obtained in the PACU showed appropriate alignment of the cemented hip hemiarthroplasty with no evidence of fracture. Postoperative examined the PACU demonstrated active dorsiflexion plantar flexion of the ankle. Complications: none Post-operative Condition: stable Disposition: PACU Plan for aftercare: Weightbear as tolerated. Posterior hip precautions x6 weeks. Lovenox 40 mg subQ for a total of 4 weeks postoperatively. Follow up in Orthopedic Clinic in approximately 12-14 days for staple removal.
[2023-08-10] MEDS: TRANEXAMIC ACID 1,000 MG in SODIUM CHLORIDE 0.9% 100 ML 200 MG IV (14:20)
[2023-08-10] MEDS: CEFAZOLIN 2 GM/100 ML PREMIX 100 ML IV ×2 (14:30→22:10)
--- NOTE | 2023-08-10 14:56 | SUR.OPER ---
Lateral on a jarquin bag, head on pillow, gel axillary roll in place, bottom leg bent with gel pad under knee to foot, upper leg straight and supported with pillows. Upper arm supported by pillows and secured over bottom arm to padded arm board. Safety belt at hip, tape over blanket lower legs.
--- NOTE | 2023-08-10 15:16 | DI.RAD.S_ITS ---
PROCEDURE: XR PELVIS 1-2V INDICATIONS: surgery TECHNIQUE: 1 view of the lower pelvis acquired. COMPARISON: None. FINDINGS: Bones: Intraoperative left hip spacer in good position. Overlying operative instrumentation. Soft tissues: Overlying operative changes are noted. No suspicious soft tissue densities. IMPRESSION: Intraoperative study shows left hip arthroplasty in progress Approved by: [place] M.D. on 08/10/2023 at 19:01
[2023-08-10] MEDS: BUPIVACAINE LIPOSOME 266 MG/20 ML VIAL INJ (15:22)
[2023-08-10] MEDS: LACTATED RINGERS 1,000 ML 42 ML IV ×2 (16:07→16:47)
--- NOTE | 2023-08-10 17:25 | PC.NURSE ---
Pt arrived back to unit from PACU. Pt started feeling nauseated and vomited very little. Vomit was scant but looked dark brown, coffee ground consistency. Pt refusing dinner at this time. Tray left at bedside just in case. Awaiting pharm to verify meds to administer antiemetic. Pt has no c/o of pain at this time, looks comfortable but tired/groggy. VS stable, BP 147/72, 95% 2LO2, HR 57 and RR 16. Scds applied, LR@100 mls/hr as per order.
[2023-08-10] MEDS: LACTATED RINGERS 1,000 ML 100 ML IV ×2 (17:36→22:14)
[2023-08-10] MEDS: DOCUSATE 100 MG CAPSULE PO (20:33)
[2023-08-10] MEDS: ACETAMINOPHEN 325 MG TABLET 650 MG PO (20:33)
[2023-08-11] VITALS (21 sets, daily range): BP systolic 69–122; BP diastolic 29–46; PULSE 56–91; RESP 14–19; TEMP 36.9–37.4; O2SAT 92–97
[2023-08-11] MEDS: CEFAZOLIN 2 GM/100 ML PREMIX 100 ML IV (05:45)
[2023-08-11 05:52] LABS: Add Manual Diff / Slide Review NO; Basophils Absolute Auto 0 /uL (0-100); Eosinophils Absolute Auto 0 /uL (0-450); Hemoglobin 9.9 g/dL (12.0-16.0); Lymphocytes Absolute Auto 800 /uL (1100-4500); Lymphocytes Percent Auto 5.6 % (25-40); Mean Corpuscular Hemoglobin 30.4 PG (26-34); Mean Corpuscular Volume 89.3 fL (80-100); Monocytes Absolute Auto 1200 /uL (0-900); Monocytes Percent Auto 8.7 % (3-14); Neutrophils Absolute Auto 11700 /uL (1500-7000); Neutrophils Percent Auto 85.7 % (50-75); Platelet Count 71 X10^3/uL (150-400); Red Blood Cell Count 3.25 X10^6/uL (4.0-5.2); Red Cell Distribution Width 13.4 % (11.6-14.8); White Blood Cell Count 13.6 X10^3/uL (4.5-11.0)
[2023-08-11 06:05] LABS: BUN Creatinine Ratio 27.5 (6-22); Blood Urea Nitrogen 19 mg/dL (7-17); Calcium 7.1 mg/dL (8.4-10.2); Carbon Dioxide 25 mmol/L (22-32); Chloride 99 mmol/L (98-107); Estimated Glomerular Filt Rate > 60 mL/min (>60); Glucose 130 mg/dL (80-110); HEMOLYSIS < 15 (0-50); Potassium 3.8 mmol/L (3.4-5.1); Sodium 130 mmol/L (137-145)
--- NOTE | 2023-08-11 07:50 | PM.PNPO.1 ---
Subjective Subjective Date Patient Seen: 08/11/23 Time Patient Seen: 07:20 Interval history: Patient is resting comfortably in bed this morning with her daughter at bedside. She states she is having no pain while at rest. Denies chest pain and shortness of breath. States that her mass has been dry and asked for something other than water. Patient is looking forward to working with physical therapy. Exam Vital Signs (past 8 hours): - 08/10/23 23:54 08/11/23 00:50 08/11/23 02:39 Temperature 98.3 F 98.5 F Pulse Rate 65 64 67 Respiratory Rate 17 14 Blood Pressure 98/37 L 117/41 L 108/46 L Pulse Oximetry 94 95 Oxygen Flow Rate 1 1 08/11/23 03:05 08/11/23 06:00 Temperature Pulse Rate 68 Respiratory Rate 17 Blood Pressure 108/46 L 108/43 L Pulse Oximetry 97 95 Oxygen Flow Rate 1 1 Fraction of Inspired Oxygen 24 SaO2/FiO2 Ratio 404 Oxygen Delivery Method Nasal Cannula Oxygen Flow Rate 1 Narrative Exam Narrative: Pleasant 83-year-old female. Awake, alert, and oriented. Left hip Aquacel clean, dry, and intact. Strength and sensation intact to bilateral lower extremities. Bilateral calves soft, compressible, nontender with no palpable cords or masses. Brisk capillary refill. Objective Labs 08/11/23 10:30 08/11/23 Unknown Labs: Laboratory Results - last 24 hr 08/10/23 08/10/23 08/10/23 07:47 07:47 07:47 WBC 8.5 RBC 4.24 Hgb 12.8 Hct 37.8 MCV 89.1 MCH 30.2 MCHC 33.9 RDW 13.6 Plt Count 74 L Neut % (Auto) 81.9 H Lymph % (Auto) 7.4 L [place] % (Auto) 9.3 Eos % (Auto) 1.0 L Baso % (Auto) 0.4 Neut # (Auto) 7000 Lymph # (Auto) 600 L [place] # (Auto) 800 Eos # (Auto) 100 Baso # (Auto) 0 PT INR Sodium 130 L Potassium 3.8 Chloride 101 Carbon Dioxide 29 BUN 20 H Creatinine 0.68 Estimated GFR > 60 BUN/Creatinine Ratio 29.4 H Glucose 120 H Calcium 8.1 L Magnesium 2.0 Total Bilirubin 1.1 AST 30 ALT 22 Alkaline Phosphatase 62 Total Protein 6.0 L Albumin 3.5 Globulin 2.5 Albumin/Globulin Ratio 1.4 08/10/23 08/11/23 08/11/23 07:47 05:27 05:27 WBC 13.6 H D RBC 3.25 L Hgb 9.9 L Hct 29.0 L MCV 89.3 MCH 30.4 MCHC 34.0 RDW 13.4 Plt Count 71 L Neut % (Auto) 85.7 H Lymph % (Auto) 5.6 L [place] % (Auto) 8.7 Eos % (Auto) 0.0 L Baso % (Auto) 0.0 Neut # (Auto) 44193 H Lymph # (Auto) 800 L [place] # (Auto) 1200 H Eos # (Auto) 0 Baso # (Auto) 0 PT 13.3 H INR 1.2 Sodium 130 L Potassium 3.8 Chloride 99 Carbon Dioxide 25 BUN 19 H Creatinine 0.69 Estimated GFR > 60 BUN/Creatinine Ratio 27.5 H Glucose 130 H Calcium 7.1 L Magnesium Total Bilirubin AST ALT Alkaline Phosphatase Total Protein Albumin Globulin Albumin/Globulin Ratio [facility] Social History household members: spouse Smoking Status: Never smoker alcohol intake: never Assessment & Plan Post-op Postoperative Procedures: Procedures Operation Date: 08/10/23 14:30 Actual Procedure Side Surgeon p Hip Hemiarthroplasty Paramjit Left Keesha Rudolph MD Postoperative day: 1 Postoperative status: doing well Postoperative status narrative: Patient is progressing well following left hip paramjit arthroplasty. Patient is concerned low blood pressures, but has not been symptomatic. Postoperative plan narrative: Plan to work with physical therapy today. Weightbearing as tolerated, posterior hip precautions. Continue multimodal pain regimen as needed. Continue to monitor blood pressure, treat as needed. Current plan is to discharge home with daughter when safe and able, potentially home health if needed. Follow up with Orthopedics in 2 weeks. Quality VTE Deep Vein Thrombosis/Pulmonary Embolism Present on Admission: No
[2023-08-11] MEDS: PANTOPRAZOLE DR 40 MG TABLET PO ×2 (09:17→21:10)
[2023-08-11] MEDS: DOCUSATE 100 MG CAPSULE PO ×2 (09:17→21:10)
--- NOTE | 2023-08-11 09:52 | PT.IIE ---
Addendum entered and electronically signed by Diajesse Vieyra PT 08/11/23 11:28: CORRECTION: Pt has LEFT femur fracture, not right. Original Note: Current Diagnoses Thrombocytopenia, unspecified (08/10/23) Age-related osteoporosis with current pathological fracture, left femur, initial encounter for fracture (08/10/23) Fracture of unspecified part of neck of unspecified femur, initial encounter for closed fracture (08/10/23) Surgery Performed Operation Date: 08/10/23 14:30 Actual Procedures p Hip Hemiarthroplasty Paramjit(Left) - Keesha Rudolph MD Physical Therapy Inpatient Evaluation/Re-Eval M1 PT/OT-IP Prior Functional Status Start: 08/11/23 08:23 Freq: NEEDED Status: Active Protocol: Document 08/11/23 09:52 AW (Rec: 08/11/23 11:13 AW [id number]) Medical Review Prior Functional Status Medical History Reviewed Yes Communication WNL. Pt is an effective verbal communicator. Mobility and Gait Independent. Walks about a mile each evening and tracks her activity with her phone. Activities of Daily Living and IADL's Independent with all ADL and IADL's. Social History Household Members spouse Living Arrangements House Number of Floors (Floors) One Floor Number of Stairs To Enter/Railing? 1 step up on to porch and threshold to clear for home entry. Home Environment Standard Height Toilet,Walk in Shower Home Equipment Four Wheel Walker,Grab Bars Near Toilet,Grab Bars In Shower Employment Status Retired Additional Social History Comment Pt lives in [place] with her spouse, Anton. They have supportive daughters in the area. M2 PT-IP Current Condition Start: 08/11/23 08:23 Freq: NEEDED Status: Active Protocol: Document 08/11/23 09:52 AW (Rec: 08/11/23 11:13 AW [id number]) Physical Therapy Current Condition Current Condition Evaluation Date 08/11/23 Treatment Diagnosis R femoral neck fx s/p hemiarthroplasty; impaired mobility and gait Onset Date 08/10/23 M3 PT-IP Subjective Start: 08/11/23 08:23 Freq: NEEDED Status: Active Protocol: Document 08/11/23 09:52 AW (Rec: 08/11/23 11:13 AW [id number]) Subjective Physical Therapy Visit Type Type Initial Evaluation Visit Start Time 09:20 Visit Stop Time 09:52 Total Visit Minutes 32 Notes Pt's daughter, Maricruz, was present throughout, very attentive, and taking notes on precautions and potential equipment needs. Number of METAL ROLLING MILL OPERATOR Visits 0 Physical Therapy Visit Comments Patient Comments Pt is willing to participate with PT, reporting some pain Therapy Pain Assessment Pain When Pain Assessed During Mobility Pain Present Pain Present Pain Reported Location Left Hip Intensity 5 Scale Used Numeric (0 - 10) Pain Management Techniques Modification of Treatment, Timing of Activity with Medications M4 PT-IP Mobility and Gait Start: 08/11/23 08:23 Freq: NEEDED Status: Active Protocol: Document 08/11/23 09:52 AW (Rec: 08/11/23 11:13 AW [id number]) PT-Bed Mobility Assessment Supine to Sit Supine to Sit Moderate Assistance,1 Person Assistance,Head of Bed Elevated,Bedrails Sit to Supine Sit to Supine Moderate Assistance,1 Person Assistance Scooting Scooting to Edge of Bed Moderate Assistance PT-Transfer Assessment Sit to and From Stand Sit to and from Stand Moderate Assistance,1 Person Assistance,Use of Upper Extremities Equipment Transfer Assistive Device Gait Belt,Front Wheeled Walker Orthotic/Prosthetic Devices or Brace: No Transfers Transfer Destination Bed Transfer Technique sit<> stand Comments Mobility Comments Pt was found resting in bed, agreeable to work with therapy . Educated pt on her posterior hip precautions and weightbearing status. Pt completed ankle pumps, quad sets, glute sets, and AAROM heel slides in bed prior to mobilizing out of bed. Orthostatic VS were tracked as noted in Other Assessments - positive and symptomatic. Mod A to move toward right edge of bed and to pivot toward sitting while PT provided verbal cues for hip precautions. Pt was slightly lightheaded in sitting but had a slight BP bump so proceeded with sit to stand. Mod A to stand and pt was able to step x 2 toward HOB but was too lightheaded and needed to sit. Mod A to return to supine. Pt was placed in trendelenberg position with recovery of BP as noted below. Gait Assessment Comments Gait Comments Unable to progress to functional gait secondary to orthostasis. PT-Balance Assessment Sitting Balance and Reactions Static Sitting Balance Ability Good Dynamic Sitting Balance Ability Good Standing Balance and Reactions Static Standing Balance Ability Fair Device Used FWW M5 PT-IP Objective Assessments Start: 08/11/23 08:23 Freq: NEEDED Status: Active Protocol: Document 08/11/23 09:52 AW (Rec: 08/11/23 11:13 AW [id number]) Orientation Orientation/Cognition Level of Alertness Alert Orientation Name,Day of Week,Place, Situation Safety Awareness Understands Safety Issues Memory Description No Deficits Noted Comments Able to teach back all precautions Gross Range of Motion Upper Extremity ROM Assessment Within Functional Limits Lower Extremity ROM Assessment Left Impaired Strength Upper Extremity Strength Assessment Within Functional Limits Lower Extremity Strength Assessment Left Impaired Hip flexion and abduction 3-/5 Knee ext 4/5 flex 4-/5 Ankle DF 4+/5 Comments Strength Comments RLE grossly 4+/5 hip to 5/5 distally Sensation Assessment Sensation Gross Sensation WNL Other Assessments Other Other Assessments 99/42 66 supine 106/43 73 sitting 69/29 72 standing 92/34 56 returned to supine M6 PT-IP Treatment Start: 08/11/23 08:23 Freq: NEEDED Status: Active Protocol: Document 08/11/23 09:52 AW (Rec: 08/11/23 11:13 AW [id number]) Physical Therapy Treatment Exercises Exercises Ankle Pumps,Gluteal Sets,Quad Sets,Heel Slides Education Education Provided Precautions,Weight Bearing Status,Post-Op Packet,Safety M7 PT-IP Assessment and Plan Start: 08/11/23 08:23 Freq: NEEDED Status: Active Protocol: Document 08/11/23 09:52 AW (Rec: 08/11/23 11:13 AW [id number]) PT Summary Assessment and Plan Potential Rehabilitation Potential Good Status of Condition at Evaluation Evolving Summary Impairments Pain,ROM,Strength,Balance,Bed Mobility,Transfers,Gait Assessment Summary Flakita is an 83 yo woman seen for PT evaluation on POD1 following left hemiarthroplasty with posterior approach to address femoral neck fracture. PMH includes HTN, hyperlipidemia, and osteoporosis. Pt is independent in all regards at baseline. CLOF: Pt was alert and very willing to participate with PT . She and her daughter were very receptive to all education regarding weightbearing status and hip precautions. Unfortunately, pt was sympomatically orthostatic with position changes and was unable to progress to transfers or gait at this assessment. Will require further assessment pending stabilization of vital signs. At this time, PT recommends at least 24/7 assist at discharge and ongoing rehab. Will continue to refine recommendation for SNF vs home PT depending on pt 's progress with mobility. Goals Bed Mobility Goal Standby Assistance Transfer Goal Standby Assistance,Front Wheeled Walker Gait Goal Standby Assistance,Front Wheel Walker Gait Distance 75 Other Goals - pt climbs one step using FWW with CGA Days to Meet Goals 5 Frequency of Treatment Frequency Of Treatment Twice a Day Treatment Plan Physical Therapy Treatment Plan Bed Mobility Training,Transfer Training,Gait Training, Therapeutic Exercise,Balance Retraining,Post Op Education, Discharge Planning,Hot or Cold Pack,Neuromuscular Re-ed Other Recommendations and Next Treatment monitor BP; assess transfers Focus and gait as able; reinforce precautions Precautions Posterior Hip Precautions No Hip Flexion > 90 degrees,No Hip Internal Rotation,No Hip Adduction Weight Bearing Status Weight Bearing Status Weight Bear as Tolerated Recommendations To Nursing Amount of Assist Needed 1 Person Assist Discharge Recommendations Other Discharge Recommendations 23/06 assist and SNF vs home PT . TBD based on progress. Equipment Needed for Home Before FWW, raised toilet seat, Discharge shower chair
[2023-08-11] MEDS: LACTATED RINGERS 1,000 ML 100 ML IV ×2 (09:55→22:30)
--- NOTE | 2023-08-11 10:14 | DI.RAD.S_ITS ---
PROCEDURE: XR CHEST 1V INDICATIONS: new leukocytosis TECHNIQUE: One view of the chest was acquired. COMPARISON: [facility], CR, XR CHEST 1V, 08/10/2023, 7:12. FINDINGS: Surgical changes and devices: None. Lungs and pleura: Lungs are clear. No pleural effusions or pneumothorax. Mediastinum: Mediastinal contours appear normal. Heart size is normal. Bones and chest wall: No suspicious bony lesions. Overlying soft tissues appear unremarkable. IMPRESSION: No acute process. Dictated by: Brandy Sanchez M.D. on 08/11/2023 at 12:05 Approved by: Brandy Sanchez M.D. on 08/11/2023 at 12:05
--- NOTE | 2023-08-11 10:16 | PC.NURSE ---
Addendum entered by Alison Alves R.N. 08/11/23 14:53: initial lactate was 2.3, repeat lactate was 1.4 Addendum entered by Alison Alves R.N. 08/11/23 12:44: repeat lactate after 2hrs per provider order Original Note: when patient stood up with PT BP was in 60's/20's. pt back in bed, BP 92/34, 91/35, 88/34 in trendelenburg position. notified hospitalist. bolus given
[2023-08-11] MEDS: SODIUM CHLORIDE 0.9% 1,000 ML 1000 ML IV ×2 (10:25→12:12)
[2023-08-11 10:53] LABS: Basophils Absolute Auto 0 /uL (0-100); Basophils Percent Auto 0.1 % (0-2); Eosinophils Absolute Auto 0 /uL (0-450); Hematocrit 27.8 % (36-46); Hemoglobin 9.3 g/dL (12.0-16.0); Lymphocytes Absolute Auto 1000 /uL (1100-4500); Lymphocytes Percent Auto 6.8 % (25-40); Mean Corpuscular HGB Conc 33.6 % (30-36); Mean Corpuscular Hemoglobin 29.9 PG (26-34); Mean Corpuscular Volume 88.9 fL (80-100); Monocytes Absolute Auto 1800 /uL (0-900); Neutrophils Absolute Auto 11800 /uL (1500-7000); Neutrophils Percent Auto 81.1 % (50-75); Platelet Count 69 X10^3/uL (150-400); Red Blood Cell Count 3.13 X10^6/uL (4.0-5.2); Red Cell Distribution Width 13.6 % (11.6-14.8); White Blood Cell Count 14.6 X10^3/uL (4.5-11.0)
[2023-08-11 10:56] LABS: Add Manual Diff / Slide Review SLIDE REVIEW
[2023-08-11 10:58] LABS: Alanine Aminotransferase 18 IU/L (<35); Albumin 2.5 g/dL (3.5-5.0); Albumin Globulin Ratio 1.2 (1.0-2.8); Alkaline Phosphatase 41 U/L (38-126); Aspartate Aminotransferase 32 IU/L (14-36); BUN Creatinine Ratio 23.4 (6-22); Bilirubin Total 0.6 mg/dL (0.2-1.3); Blood Urea Nitrogen 18 mg/dL (7-17); Calcium 7.3 mg/dL (8.4-10.2); Carbon Dioxide 26 mmol/L (22-32); Chloride 99 mmol/L (98-107); Estimated Glomerular Filt Rate > 60 mL/min (>60); Globulin 2.1 g/dL (1.7-4.1); Glucose 124 mg/dL (80-110); HEMOLYSIS < 15 (0-50); Sodium 128 mmol/L (137-145); Total Protein 4.6 g/dL (6.3-8.2)
[2023-08-11 10:59] LABS: Lactate (Lactic Acid) 2.3 mmol/L (0.7-2.1)
[2023-08-11 11:05] LABS: INR 1.2 (0.9-1.3)
[2023-08-11 11:09] LABS: Troponin I < 0.012 ng/mL (0.01-0.034)
[2023-08-11 11:15] LABS: RBC Morphology Normal Morphology
--- NOTE | 2023-08-11 11:37 | OT.IPNOTE ---
OT eval and treat order received. Chart reviewed and discussed with . Pt with orthostatic hypotension when working with P.T. this AM. Pt is getting bolus but hold at this time till BP improves. Will check back tomorrow.
[2023-08-11 12:52] LABS: Reflexed Lactate in 2 Hours Y
--- NOTE | 2023-08-11 12:58 | CM.DANOTE ---
Initial DCP assessment note: Pt is a 83 year-old woman who presented to the ED on 08/10 following a ground level fall. She was initially able to ambulate, however, the next morning she had increased pain and heard a loud pop and was unable to bear weight. CT imaging showed a L-hip fracture due to osteoporosis-related fragility. Consult w/Ortho recommended a hemiarthoplasty (done). Payor: Medicare Surgeon: Ronni MEDINA reviewed chart, consulted team at rounds. Met with pt/dtr at bedside. More imaging is planned to assess possible source of low H&H later this am. D/C recommendations for care needs and resources post-discharge are pending continued PT/OT evaluations, and stabilization of H&H. Discussed the scenario of having HH at time of d/c, care management will continue to monitor recommendations and assist as appropriate. Discussed the option of obtaining needed DME from the local [employer], dtr will plan to obtain what they need once known. Dtr will also transport. Discharge plan is home with family care/support at time of this assessment. Will continue to monitor next steps of care plan. Discharge Planning/Care Management CM Discharge Assessment Start: 08/11/23 12:51 Freq: Status: Active Protocol: Document 08/11/23 12:52 DPL (Rec: 08/11/23 12:58 DPL [id number]) Discharge Planning Assessment Assigned Instructor Flying ADAM Steinberg Advance Directives? No History Provided By Patient Has Patient been admitted in last 30 No days? Prior Living Arrangements House Household Members spouse Type of transporation used prior to Drives own vehicle admit Willing to Return to Facility? No Independent with ADL's Yes Is patient alert and oriented? Yes Comment Pt will need assistance w/ADL' s once home. Dtr is planning to stay with her for first week post d/c, and her sister will plan for the second week. D/C DME and in-home care needs pending PT/OT recommendations as pt continues to stabilize. Comment N/A Comment Family understands that they can obtain home DME from the local [employer] store. Dtr will plan to p/u once DME recommendations are made by PT /OT. Comment Unclear at time of this assessment if pt will be needing HH right away, or if her surgeon will assess that at first f/u post d/c visit. Family will provide care in home either way. Barriers to Discharge No Discharge Plan Home Transportation Arrangement Family will transport. Referrals Initiated Other Additional Comment D/C planning will monitor. If patient plan is home with home health No : Has signed face to face form been completed? Comment Not appropriate at time of this assessment-pending. Whiteboard Updated in Patient Room with Yes name and ext. # of Instructor Flying Review Status In Process Please Provide Date Initial DC 08/11/23 Assessment Was Performed
[2023-08-11 13:01] LABS: Appearance Urine UA CLEAR; Bilirubin Urine UA NEGATIVE (NEGATIVE); Color Urine UA YELLOW; Glucose Urine UA NEGATIVE (Negative); Ketones Urine UA NEGATIVE (NEGATIVE); Leukocyte Esterase Urine UA NEGATIVE (NEGATIVE); Nitrite Urine UA NEGATIVE (Negative); Occult Blood Urine UA TRACE-INTACT (Negative); Protein Urine UA NEGATIVE (Negative); Specific Gravity Urine UA <=1.005 (1.000-1.035); Urobilinogen Urine UA 0.2 E.U./dL (0.2)
[2023-08-11 13:05] LABS: pH Urine UA 6.5 (4.5-8.0)
[2023-08-11 13:07] LABS: Bacteria Urine None Seen; Culture Indicated Urine Cult Not Indicated; RBC Urine 1-5/HPF (0-5/HPF); Squamous Epithelial Cell Urine 0-1 /HPF (0-5/HPF); WBC Urine 0-1/HPF (0-5/HPF)
[2023-08-11 13:19] LABS: Lactate 2HR (Lactic Acid Rflx) 1.4 mmol/L (0.7-2.1)
--- NOTE | 2023-08-11 14:48 | PT-IP ANOTE ---
Holding afternoon PT session secondary to persistent hypotension. Of note, H&H continues to drop. WBC and lactate both rising. Will follow up next service date.
--- NOTE | 2023-08-11 18:30 | PM.PN.1 ---
Subjective Subjective Interval history: Patient had successful hip surgery and says her pain is fully gone. Her BP is soft today down to 88/34 and 2L NS boluses given with improvement to 118/43. WBC up to 14.6 so UA, procal and CXR obtained to make sure no infection present. Hgb dipped from 12.8 to 9.9 but no evidence of bleeding. She has no complaints other than lightheadedness when standing. Exam Vital Signs (past 8 hours): - 08/11/23 10:37 08/11/23 10:50 08/11/23 11:12 Pulse Rate Blood Pressure 93/30 L 101/33 L 106/30 L 08/11/23 12:01 08/11/23 13:16 08/11/23 16:47 Pulse Rate 80 85 Blood Pressure 99/30 L 100/36 L 118/43 L Fraction of Inspired Oxygen 24 SaO2/FiO2 Ratio 404 Oxygen Delivery Method Nasal Cannula Oxygen Flow Rate 0.5 Narrative Exam Narrative: GEN: no acute distress, pleasant eldlerly woman HEENT: moist mucous membranes, PERRL NECK: trachea midline, no JVD CV: regular rate and rhythm, no murmurs PULM: clear bilaterally ABD: soft, nontender, nondistended, no organomegaly EXT: warm and well perfused with no edema NEURO: awake, alert, oriented, no focal deficits Objective Labs 08/11/23 10:30 08/11/23 Unknown Labs: Laboratory Results - last 24 hr 08/11/23 08/11/23 08/11/23 05:27 05:27 10:17 WBC 13.6 H D RBC 3.25 L Hgb 9.9 L Hct 29.0 L MCV 89.3 MCH 30.4 MCHC 34.0 RDW 13.4 Plt Count 71 L Neut % (Auto) 85.7 H Lymph % (Auto) 5.6 L [place] % (Auto) 8.7 Eos % (Auto) 0.0 L Baso % (Auto) 0.0 Neut # (Auto) 89268 H Lymph # (Auto) 800 L [place] # (Auto) 1200 H Eos # (Auto) 0 Baso # (Auto) 0 Plt Morphology Comment RBC Morphology PT INR Sodium 130 L Potassium 3.8 Chloride 99 Carbon Dioxide 25 BUN 19 H Creatinine 0.69 Estimated GFR > 60 BUN/Creatinine Ratio 27.5 H Glucose 130 H Lactate Calcium 7.1 L Total Bilirubin AST ALT Alkaline Phosphatase Troponin I < 0.012 Total Protein Albumin Globulin Albumin/Globulin Ratio Procalcitonin Urine Color Urine Appearance Urine pH Ur Specific [place] Urine Protein Urine Glucose (UA) Urine Ketones Urine Occult Blood Urine Nitrate Urine Bilirubin Urine Urobilinogen Ur Leukocyte Esterase Urine RBC Urine WBC Ur Squamous Epith Cells Urine Bacteria Ur Culture Indicated? 08/11/23 08/11/23 08/11/23 10:30 10:30 12:36 WBC 14.6 H RBC 3.13 L Hgb 9.3 L Hct 27.8 L MCV 88.9 MCH 29.9 MCHC 33.6 RDW 13.6 Plt Count 69 L Neut % (Auto) 81.1 H Lymph % (Auto) 6.8 L [place] % (Auto) 12.0 Eos % (Auto) 0.0 L Baso % (Auto) 0.1 Neut # (Auto) 53574 H Lymph # (Auto) 1000 L [place] # (Auto) 1800 H Eos # (Auto) 0 Baso # (Auto) 0 Plt Morphology Comment RBC Morphology Normal morphology PT 14.0 H INR 1.2 Sodium Potassium Chloride Carbon Dioxide BUN Creatinine Estimated GFR BUN/Creatinine Ratio Glucose Lactate Calcium Total Bilirubin AST ALT Alkaline Phosphatase Troponin I Total Protein Albumin Globulin Albumin/Globulin Ratio Procalcitonin Urine Color Yellow Urine Appearance Clear Urine pH 6.5 Ur Specific [place] <=1.005 Urine Protein Negative Urine Glucose (UA) Negative Urine Ketones Negative Urine Occult Blood Trace-intact Urine Nitrate Negative Urine Bilirubin Negative Urine Urobilinogen 0.2 Ur Leukocyte Esterase Negative Urine RBC 1-5/hpf Urine WBC 0-1/hpf Ur Squamous Epith Cells 0-1 /hpf Urine Bacteria None seen Ur Culture Indicated? Cult not indicated 08/11/23 08/11/23 08/11/23 12:52 12:53 Unknown WBC RBC Hgb Hct MCV MCH MCHC RDW Plt Count Neut % (Auto) Lymph % (Auto) [place] % (Auto) Eos % (Auto) Baso % (Auto) Neut # (Auto) Lymph # (Auto) [place] # (Auto) Eos # (Auto) Baso # (Auto) Plt Morphology Comment RBC Morphology PT INR Sodium 128 L Potassium 4.0 Chloride 99 Carbon Dioxide 26 BUN 18 H Creatinine 0.77 Estimated GFR > 60 BUN/Creatinine Ratio 23.4 H Glucose 124 H Lactate 1.4 Cancelled Calcium 7.3 L Total Bilirubin 0.6 AST 32 ALT 18 Alkaline Phosphatase 41 Troponin I Total Protein 4.6 L Albumin 2.5 L Globulin 2.1 Albumin/Globulin Ratio 1.2 Procalcitonin Urine Color Urine Appearance Urine pH Ur Specific [place] Urine Protein Urine Glucose (UA) Urine Ketones Urine Occult Blood Urine Nitrate Urine Bilirubin Urine Urobilinogen Ur Leukocyte Esterase Urine RBC Urine WBC Ur Squamous Epith Cells Urine Bacteria Ur Culture Indicated? 08/11/23 08/11/23 Unknown Unknown WBC RBC Hgb Hct MCV MCH MCHC RDW Plt Count Neut % (Auto) Lymph % (Auto) [place] % (Auto) Eos % (Auto) Baso % (Auto) Neut # (Auto) Lymph # (Auto) [place] # (Auto) Eos # (Auto) Baso # (Auto) Plt Morphology Comment RBC Morphology PT INR Sodium Potassium Chloride Carbon Dioxide BUN Creatinine Estimated GFR BUN/Creatinine Ratio Glucose Lactate 2.3 H Calcium Total Bilirubin AST ALT Alkaline Phosphatase Troponin I Total Protein Albumin Globulin Albumin/Globulin Ratio Procalcitonin 0.10 Urine Color Urine Appearance Urine pH Ur Specific [place] Urine Protein Urine Glucose (UA) Urine Ketones Urine Occult Blood Urine Nitrate Urine Bilirubin Urine Urobilinogen Ur Leukocyte Esterase Urine RBC Urine WBC Ur Squamous Epith Cells Urine Bacteria Ur Culture Indicated? [facility] Social History household members: spouse Smoking Status: Never smoker alcohol intake: never Assessment & Plan Assessment and plan (1) Fracture of left hip due to osteoporosis: Status: Acute (2) Closed hip fracture: Status: Acute (3) Thrombocytopenia: Status: Acute Assessment & Plan narrative: # left hip fracture s/p total hip replacement -tripped after getting out of recliner -hip x-ray confirms left femoral neck fracture -Dr. Faizan shaw consulted, repaired on 08/10 -pain control as needed -PT/OT evals # orthostatic hypotension -unclear etiology but patient appears dry on exam, fluid responsive as BP now better s/p 2L boluses -monitor and check qshift orthostatics # leukocytosis -WBC up to 14.6 after surgery, likely reactive -procal neg -CXR negative -UA negative -monitor for fevers # acute postop anemia -Hgb 12.8 to 9.9 following surgery -no evidence of bleeding, likely from surgical losses -monitor # osteoporosis -patient currently on Fosamax weekly, holding while admitted -would likely benefit from addition of injectable osteoporosis medications ground level fall resulting in hip fracture -f/u with PCP # hyperlipidemia -hold lovastatin as not on formulary # hypertension -continue home propranolol Code status is full code. DVT prophylaxis with SCDs. Proxy is Anton. I have reviewed home meds and used all available resources to reconcile the home meds. Dispo: Home with HH likely 1 day following improvement in BP. Quality VTE Deep Vein Thrombosis/Pulmonary Embolism Present on Admission: No
[2023-08-12 00:13] VITALS: BP 114/42; PULSE 90; RESP 17; TEMP 36.6; O2SAT 93
[2023-08-12 05:51] LABS: Add Manual Diff / Slide Review NO; Basophils Absolute Auto 0 /uL (0-100); Basophils Percent Auto 0.2 % (0-2); Eosinophils Absolute Auto 0 /uL (0-450); Eosinophils Percent Auto 0.5 % (2-4); Hemoglobin 8.2 g/dL (12.0-16.0); Lymphocytes Absolute Auto 1100 /uL (1100-4500); Lymphocytes Percent Auto 11.6 % (25-40); Mean Corpuscular HGB Conc 34.4 % (30-36); Mean Corpuscular Hemoglobin 30.5 PG (26-34); Mean Corpuscular Volume 88.8 fL (80-100); Monocytes Absolute Auto 1300 /uL (0-900); Monocytes Percent Auto 14.6 % (3-14); Neutrophils Absolute Auto 6700 /uL (1500-7000); Neutrophils Percent Auto 73.1 % (50-75); Platelet Count 59 X10^3/uL (150-400); Red Cell Distribution Width 13.7 % (11.6-14.8); White Blood Cell Count 9.2 X10^3/uL (4.5-11.0)
[2023-08-12 05:56] LABS: BUN Creatinine Ratio 15.4 (6-22); Blood Urea Nitrogen 12 mg/dL (7-17); Calcium 6.9 mg/dL (8.4-10.2); Carbon Dioxide 26 mmol/L (22-32); Chloride 106 mmol/L (98-107); Estimated Glomerular Filt Rate > 60 mL/min (>60); Glucose 94 mg/dL (80-110); HEMOLYSIS < 15 (0-50); Potassium 3.7 mmol/L (3.4-5.1); Sodium 135 mmol/L (137-145)
[2023-08-12] MEDS: SODIUM CHLORIDE 0.9% FLUSH 10 ML IV ×2 (06:12→20:54)
[2023-08-12 06:17] VITALS: BP 124/48; PULSE 86; RESP 17; TEMP 37.2; O2SAT 95
[2023-08-12 07:32] VITALS: O2SAT 94
[2023-08-12 09:00] VITALS: BP 117/70; PULSE 80; RESP 17; TEMP 36.6; O2SAT 95
[2023-08-12] MEDS: PANTOPRAZOLE DR 40 MG TABLET PO ×2 (09:07→20:53)
[2023-08-12] MEDS: OXYCODONE IR 5 MG TABLET PO (09:08)
[2023-08-12] MEDS: DOCUSATE 100 MG CAPSULE PO ×2 (09:08→20:53)
[2023-08-12] MEDS: ACETAMINOPHEN 325 MG TABLET 650 MG PO ×2 (09:08→17:01)
--- NOTE | 2023-08-12 09:45 | PT.IPTN ---
Current Diagnoses Thrombocytopenia, unspecified (08/10/23) Age-related osteoporosis with current pathological fracture, left femur, initial encounter for fracture (08/10/23) Fracture of unspecified part of neck of unspecified femur, initial encounter for closed fracture (08/10/23) Surgery Performed Operation Date: 08/10/23 14:30 Actual Procedures p Hip Hemiarthroplasty Paramjit(Left) - Keesha Rudolph MD Physical Therapy Treatment Note M2 PT-IP Current Condition Start: 08/11/23 08:23 Freq: NEEDED Status: Active Protocol: Document 08/11/23 09:52 AW (Rec: 08/11/23 11:13 AW [id number]) Physical Therapy Current Condition Current Condition Evaluation Date 08/11/23 Treatment Diagnosis L femoral neck fx s/p hemiarthroplasty; impaired mobility and gait Onset Date 08/10/23 M3 PT-IP Subjective Start: 08/11/23 08:23 Freq: NEEDED Status: Active Protocol: Document 08/12/23 10:55 TS (Rec: 08/12/23 11:26 TS [id number]) Subjective Physical Therapy Visit Type Type Treatment Note Visit Start Time 09:45 Visit Stop Time 10:48 Total Visit Minutes 63 Notes Vitals: BP 123/43 supine, 124/ 49 sitting. Daughter present for caregiver training. Number of DONKEY RIDE OPERATOR Visits 1 Physical Therapy Visit Comments Patient Comments Pt reports she is feeling better this morning and is not having much pain. Daughter is present in room for caregiver training, Pt agreeable to PT. Therapy Pain Assessment Pain When Pain Assessed During Mobility Pain Present Pain Present Pain Reported M4 PT-IP Mobility and Gait Start: 08/11/23 08:23 Freq: NEEDED Status: Active Protocol: Document 08/12/23 10:55 TS (Rec: 08/12/23 11:26 TS [id number]) PT-Bed Mobility Assessment Supine to Sit Supine to Sit Moderate Assistance,1 Person Assistance,Head of Bed Elevated,Bedrails Sit to Supine Sit to Supine Moderate Assistance,1 Person Assistance Scooting Scooting to Edge of Bed Contact Guard Assistance PT-Transfer Assessment Sit to and From Stand Sit to and from Stand Contact Guard Assistance,1 Person Assistance,Use of Upper Extremities Equipment Transfer Assistive Device Gait Belt,Front Wheeled Walker Orthotic/Prosthetic Devices or Brace: No Comments Mobility Comments Pt found resting in bed, agreeable to PT. BP taken in supine 123/43 prior to mobility. She recalled 2/3 posterior hip precautions(no internal rotation). Pt performed bed ex of ankle pumps, quad sets, glute sets and heel slides, handout was provided. Supine to sit ModA HOB elevated with handheld assist from daughter and LLE assistance to EOB. She scooted to EOB CGA with slow movement , required cues for BUE support and for decreased hip flexion. BP taken in sitting 124/49, pt denied any dizziness. Sit to stand from bed CGA w/ assist from daughter and use of FWW, cues were provided for feet underneath her and maintaining 90D, instructed daughter in donning of gait belt. She ambulated ~30'Claudia from daughter, cues were provided step sequencing and required some tactile management of FWW , pt had no buckling or LOB. Pt took short rest break in chair. Sit to stand from chair CGA with cues for BUE support pushing from arms of the chair. She performed steps x3 on platform step Claudia from daughter with max cueing of step sequencing. Sit to supine into bed ModA for LEs into bed, pt requried cues for laterally scooting for repositioning into bed. Pt was left in bed with call light nearby, daughter in room, all needs met. Gait Assessment Gait Gait Assistance Required: Minimum Assistance,1 Person Assist Distance (Feet) 30 Assistive Devices Assistive Device Front Wheeled Walker Orthotic/Prosthetic Devices or Brace: No Gait Deviations General Gait Pattern Antalgic,Decreased Stride Length,Decreased Feet Clearance,Flexed Trunk,Step-to Gait Factors Limiting Gait Function Factors Limiting Gait Function Decreased Activity Tolerance, Decreased Strength,Difficulty Following Directions,Pain,Poor Balance Comments Gait Comments See mobility comments. Stair Climbing Assessment Evaluation Level of Assist On Stairs Minimal Assistance Devices Stair Climbing Assistive Devices Front Wheel Walker Technique/Endurance Stair Climbing Direction Ascend and Descend Stair Climbing Technique Step to Step Number of Steps Climbed 3 Comments Stair Climbing Comments See mobility comments. PT-Balance Assessment Sitting Balance and Reactions Static Sitting Balance Ability Good Dynamic Sitting Balance Ability Good Standing Balance and Reactions Static Standing Balance Ability Fair Dynamic Standing Balance Ability Fair Device Used FWW M5 PT-IP Objective Assessments Start: 08/11/23 08:23 Freq: NEEDED Status: Active Protocol: Document 08/11/23 09:52 AW (Rec: 08/11/23 11:13 AW [id number]) Orientation Orientation/Cognition Level of Alertness Alert Orientation Name,Day of Week,Place, Situation Safety Awareness Understands Safety Issues Memory Description No Deficits Noted Comments Able to teach back all precautions Gross Range of Motion Upper Extremity ROM Assessment Within Functional Limits Lower Extremity ROM Assessment Left Impaired Strength Upper Extremity Strength Assessment Within Functional Limits Lower Extremity Strength Assessment Left Impaired Hip flexion and abduction 3-/5 Knee ext 4/5 flex 4-/5 Ankle DF 4+/5 Comments Strength Comments RLE grossly 4+/5 hip to 5/5 distally Sensation Assessment Sensation Gross Sensation WNL Other Assessments Other Other Assessments 99/42 66 supine 106/43 73 sitting 69/29 72 standing 92/34 56 returned to supine M6 PT-IP Treatment Start: 08/11/23 08:23 Freq: NEEDED Status: Active Protocol: Document 08/12/23 10:55 TS (Rec: 08/12/23 11:26 TS [id number]) Physical Therapy Treatment Exercises Exercises Ankle Pumps,Gluteal Sets,Quad Sets,Heel Slides Education Education Provided Precautions,Weight Bearing Status,Post-Op Packet,Safety M7 PT-IP Assessment and Plan Start: 08/11/23 08:23 Freq: NEEDED Status: Active Protocol: Document 08/12/23 10:55 TS (Rec: 08/12/23 11:26 TS [id number]) PT Summary Assessment and Plan Potential Rehabilitation Potential Good Summary Impairments Pain,ROM,Strength,Balance,Bed Mobility,Transfers,Gait Progress Towards Goals Progressing Toward Goals Assessment Summary Pt is progressing well with her mobility this session. BP was more stable this morning and pt denied any dizziness or lightheadedness with mobility . She recalled 2/3 posterior hip precautions prior to mobility, she could not recall no internal rotation. She continued to perform bed mobility with ModA for uprighting her trunk and LLE assistance to EOB. She progressed her sit to stands to x2 with CGA from the higher surface of the bed and lower surface of the chair. She progressed her gait to ~30' w/ Claudia requiring assistance in FWW management. Pt requires max cueing for all mobility and his very receptive to cues . Daughter was present for caregiver training this session. Daughter was educated on donning of gait belt, bed mobility, sit to stand sequencing, gait training and step training. Daughter worked well with Pt, she works in healthcare, she feels comfortable assisting pt at home. PT is recommending return to home with 24/7 assist and w/HHPT. Goals Bed Mobility Goal Standby Assistance Transfer Goal Standby Assistance,Front Wheeled Walker Gait Goal Standby Assistance,Front Wheel Walker Gait Distance 75 Other Goals - pt climbs one step using FWW with CGA Days to Meet Goals 5 Frequency of Treatment Frequency Of Treatment Twice a Day Treatment Plan Physical Therapy Treatment Plan Bed Mobility Training,Transfer Training,Gait Training, Therapeutic Exercise,Balance Retraining,Post Op Education, Discharge Planning,Hot or Cold Pack,Neuromuscular Re-ed Other Recommendations and Next Treatment monitor BP; assess transfers Focus and gait as able; reinforce precautions Precautions Posterior Hip Precautions No Hip Flexion > 90 degrees,No Hip Internal Rotation,No Hip Adduction Weight Bearing Status Weight Bearing Status Weight Bear as Tolerated Recommendations To Nursing Amount of Assist Needed 1 Person Assist Discharge Recommendations PT Discharge Recommendations Home with 24/7 Assist Available,Home Health Equipment Needed for Home Before FWW, raised toilet seat, Discharge shower chair
--- NOTE | 2023-08-12 10:33 | CM.DPC ---
DCP Cont. Reviewed EMR for updates. Met with family at bedside, discussed HH preferences, family was shown options for the CM tablet. Called Dwayne at [facility] to review for acceptance. He will notify this CORPORATE DIRECTOR TALENT ASSESSMENT once he can confirm. Family understands plan and what to expect with HH services. Family to transport home, D/C most likely tomorrow, family will transport.
--- NOTE | 2023-08-12 11:32 | P.PN_ITS ---
Subjective Subjective Date Patient Seen: 08/12/23 Time Patient Seen: 11:32 Interval history: Left hip pain is mild. Denies fever or chills. No nausea or vomiting. Exam Vital Signs (past 8 hours): - 08/12/23 06:17 08/12/23 07:32 08/12/23 09:00 Temperature 98.9 F 97.9 F Pulse Rate 86 80 Respiratory Rate 17 17 Blood Pressure 124/48 L 117/70 Pulse Oximetry 95 94 95 Oxygen Flow Rate 0.5 0 0 Fraction of Inspired Oxygen 24 SaO2/FiO2 Ratio 404 Oxygen Delivery Method Nasal Cannula Oxygen Flow Rate 0 Narrative Exam Narrative: 83-year-old female resting comfortably in bed in no apparent distress. Dressing is clean, dry and intact. Motor functions intact distal left lower extremity. Sensation grossly intact light touch. Const General: cooperative and comfortable Objective Labs 08/12/23 05:10 08/12/23 05:10 Labs: Laboratory Results - last 24 hr 08/11/23 08/11/23 08/11/23 12:36 12:52 12:53 WBC RBC Hgb Hct MCV MCH MCHC RDW Plt Count Neut % (Auto) Lymph % (Auto) Anderson % (Auto) Eos % (Auto) Baso % (Auto) Neut # (Auto) Lymph # (Auto) Anderson # (Auto) Eos # (Auto) Baso # (Auto) Sodium Potassium Chloride Carbon Dioxide BUN Creatinine Estimated GFR BUN/Creatinine Ratio Glucose Lactate 1.4 Cancelled Calcium Urine Color Yellow Urine Appearance Clear Urine pH 6.5 Ur Specific [place] <=1.005 Urine Protein Negative Urine Glucose (UA) Negative Urine Ketones Negative Urine Occult Blood Trace-intact Urine Nitrate Negative Urine Bilirubin Negative Urine Urobilinogen 0.2 Ur Leukocyte Esterase Negative Urine RBC 1-5/hpf Urine WBC 0-1/hpf Ur Squamous Epith Cells 0-1 /hpf Urine Bacteria None seen Ur Culture Indicated? Cult not indicated 08/12/23 08/12/23 05:10 05:10 WBC 9.2 RBC 2.70 L Hgb 8.2 L Hct 24.0 L MCV 88.8 MCH 30.5 MCHC 34.4 RDW 13.7 Plt Count 59 L Neut % (Auto) 73.1 Lymph % (Auto) 11.6 L Anderson % (Auto) 14.6 H Eos % (Auto) 0.5 L Baso % (Auto) 0.2 Neut # (Auto) 6700 Lymph # (Auto) 1100 Anderson # (Auto) 1300 H Eos # (Auto) 0 Baso # (Auto) 0 Sodium 135 L Potassium 3.7 Chloride 106 Carbon Dioxide 26 BUN 12 Creatinine 0.78 Estimated GFR > 60 BUN/Creatinine Ratio 15.4 Glucose 94 Lactate Calcium 6.9 L Urine Color Urine Appearance Urine pH Ur Specific [place] Urine Protein Urine Glucose (UA) Urine Ketones Urine Occult Blood Urine Nitrate Urine Bilirubin Urine Urobilinogen Ur Leukocyte Esterase Urine RBC Urine WBC Ur Squamous Epith Cells Urine Bacteria Ur Culture Indicated? PFSH Social History household members: spouse Smoking Status: Never smoker alcohol intake: never Assessment & Plan Post-op Postoperative Procedures: Procedures Operation Date: 08/10/23 14:30 Actual Procedure Side Surgeon p Hip Hemiarthroplasty Paramjit Left Keesha Rudolph MD Postoperative day: 2 Postoperative status: doing well Postoperative plan narrative: Weightbearing as tolerated, posterior hip precautions x6 weeks Lovenox 40 mg subQ for a total of 4 weeks postoperatively Follow up in Orthopedic Clinic 12-14 days Disposition when medically stable per hospitalist Quality VTE Deep Vein Thrombosis/Pulmonary Embolism Present on Admission: No
[2023-08-12 12:00] VITALS: BP 108/40; PULSE 87; RESP 17; TEMP 36.6; O2SAT 94
--- NOTE | 2023-08-12 12:48 | PT.IPTN ---
Current Diagnoses Thrombocytopenia, unspecified (08/10/23) Age-related osteoporosis with current pathological fracture, left femur, initial encounter for fracture (08/10/23) Fracture of unspecified part of neck of unspecified femur, initial encounter for closed fracture (08/10/23) Surgery Performed Operation Date: 08/10/23 14:30 Actual Procedures p Hip Hemiarthroplasty Paramjit(Left) - Keesha Rudolph MD Physical Therapy Treatment Note M2 PT-IP Current Condition Start: 08/11/23 08:23 Freq: NEEDED Status: Active Protocol: Document 08/11/23 09:52 AW (Rec: 08/11/23 11:13 AW [id number]) Physical Therapy Current Condition Current Condition Evaluation Date 08/11/23 Treatment Diagnosis L femoral neck fx s/p hemiarthroplasty; impaired mobility and gait Onset Date 08/10/23 M3 PT-IP Subjective Start: 08/11/23 08:23 Freq: NEEDED Status: Active Protocol: Document 08/12/23 13:21 TS (Rec: 08/12/23 13:45 TS [id number]) Subjective Physical Therapy Visit Type Type Treatment Note Visit Start Time 12:48 Visit Stop Time 13:20 Total Visit Minutes 32 Notes daughter present, Co-treat with OT. Number of WEIGHT YARDAGE CHECKER Visits 2 Physical Therapy Visit Comments Patient Comments Pt reports feeling tired this afternoon, is agreeable to PT. Therapy Pain Assessment Pain When Pain Assessed During Mobility Pain Present Pain Present Pain Reported Location Left Hip Intensity 1 Scale Used Numeric (0 - 10) Description Aching,Acute Pain Management Techniques Modification of Treatment, Timing of Activity with Medications M4 PT-IP Mobility and Gait Start: 08/11/23 08:23 Freq: NEEDED Status: Active Protocol: Document 08/12/23 13:21 TS (Rec: 08/12/23 13:45 TS [id number]) PT-Bed Mobility Assessment Supine to Sit Supine to Sit Minimal Assistance,1 Person Assistance,Bedrails Sit to Supine Sit to Supine Moderate Assistance,1 Person Assistance Scooting Scooting to Edge of Bed Contact Guard Assistance PT-Transfer Assessment Sit to and From Stand Sit to and from Stand Minimal Assistance,1 Person Assistance,Use of Upper Extremities Equipment Transfer Assistive Device Gait Belt,Front Wheeled Walker Orthotic/Prosthetic Devices or Brace: No Comments Mobility Comments Pt found resting in bed, agreeable to PT. BP in supine 108/40 prior to mobility, pt recalled 3/3 hip precautions. Supine to sit Claudia for LLE to EOB, pt used gait belt strap to assist leg to EOB, cues provided to come up onto elbows and hands. She scooted to EOB CGA with cues for decreased hip flexion and feet flat on floor. BP taken in sitting 112/43, pt denied any dizziness but is feeling tired . Sit to stand w/FWW from elevated bed Claudia, cued for feet underneath her and feet flat on the ground. BP taken in standing 100/31, pt continues to deny any dizziness. She ambulated ~20' CGA/SBA w/FWW and slow step to gait, pt demonstrates carryover of step sequencing. Sit to supine back into bed ModA for LEs and repositioning in bed, pt assisted with use of strap. Pt was left in bed with call light nearby, daughter and DISC INSPECTOR in room tending to needs, RN notified. Gait Assessment Gait Gait Assistance Required: Standby Assistance,Contact Guard Assist,1 Person Assist Distance (Feet) 20 Assistive Devices Assistive Device Front Wheeled Walker Orthotic/Prosthetic Devices or Brace: No Gait Deviations General Gait Pattern Antalgic,Decreased Stride Length,Decreased Feet Clearance,Flexed Trunk,Step-to Gait Factors Limiting Gait Function Factors Limiting Gait Function Decreased Activity Tolerance, Decreased Strength,Difficulty Following Directions,Pain,Poor Balance Comments Gait Comments See mobility comments. Stair Climbing Assessment Comments Stair Climbing Comments Did not attempt this session. PT-Balance Assessment Sitting Balance and Reactions Static Sitting Balance Ability Good Dynamic Sitting Balance Ability Good Standing Balance and Reactions Static Standing Balance Ability Fair Dynamic Standing Balance Ability Fair Device Used FWW M5 PT-IP Objective Assessments Start: 08/11/23 08:23 Freq: NEEDED Status: Active Protocol: Document 08/11/23 09:52 AW (Rec: 08/11/23 11:13 AW [id number]) Orientation Orientation/Cognition Level of Alertness Alert Orientation Name,Day of Week,Place, Situation Safety Awareness Understands Safety Issues Memory Description No Deficits Noted Comments Able to teach back all precautions Gross Range of Motion Upper Extremity ROM Assessment Within Functional Limits Lower Extremity ROM Assessment Left Impaired Strength Upper Extremity Strength Assessment Within Functional Limits Lower Extremity Strength Assessment Left Impaired Hip flexion and abduction 3-/5 Knee ext 4/5 flex 4-/5 Ankle DF 4+/5 Comments Strength Comments RLE grossly 4+/5 hip to 5/5 distally Sensation Assessment Sensation Gross Sensation WNL Other Assessments Other Other Assessments 99/42 66 supine 106/43 73 sitting 69/29 72 standing 92/34 56 returned to supine M6 PT-IP Treatment Start: 08/11/23 08:23 Freq: NEEDED Status: Active Protocol: Document 08/12/23 10:55 TS (Rec: 08/12/23 11:26 TS [id number]) Physical Therapy Treatment Exercises Exercises Ankle Pumps,Gluteal Sets,Quad Sets,Heel Slides Education Education Provided Precautions,Weight Bearing Status,Post-Op Packet,Safety M7 PT-IP Assessment and Plan Start: 08/11/23 08:23 Freq: NEEDED Status: Active Protocol: Document 08/12/23 13:21 TS (Rec: 08/12/23 13:45 TS [id number]) PT Summary Assessment and Plan Potential Rehabilitation Potential Good Summary Impairments Pain,ROM,Strength,Balance,Bed Mobility,Transfers,Gait Progress Towards Goals Progressing Toward Goals Assessment Summary Pt continues to make progress with her mobility. She required decreased assist to Claudia for supine to sit with use of strap assisting LLE to EOB. She performed sit to stand Claudia x1 demonstrating good carryover of sequencing from previous session. She continued to ambulate short distances in room w/FWW and CGA/SBA, has no buckling or LOB. She did not require cues for managing the FWW. She could recall 3/3 hip precautions this session with no cueing. Pt's BP was lower this afternoon compared to this morning. Pt denied any dizziness or lightheadedness, see vitals above. Pt and daughter completed caregiver training in the AM 08/12. PT continues to recommend home 24 /7 assist and HHPT. Goals Bed Mobility Goal Standby Assistance Transfer Goal Standby Assistance,Front Wheeled Walker Gait Goal Standby Assistance,Front Wheel Walker Gait Distance 75 Other Goals - pt climbs one step using FWW with CGA Days to Meet Goals 5 Frequency of Treatment Frequency Of Treatment Twice a Day Treatment Plan Physical Therapy Treatment Plan Bed Mobility Training,Transfer Training,Gait Training, Therapeutic Exercise,Balance Retraining,Post Op Education, Discharge Planning,Hot or Cold Pack,Neuromuscular Re-ed Other Recommendations and Next Treatment monitor BP; assess transfers Focus and gait as able; reinforce precautions Precautions Posterior Hip Precautions No Hip Flexion > 90 degrees,No Hip Internal Rotation,No Hip Adduction Weight Bearing Status Weight Bearing Status Weight Bear as Tolerated Recommendations To Nursing Amount of Assist Needed 1 Person Assist Discharge Recommendations PT Discharge Recommendations Home with 23/06 Assist Available,Home Health Equipment Needed for Home Before Daughter reports having FWW, Discharge raised toilet seat, shower chair. Daughter will attempt to get BSC today 08/12.
--- NOTE | 2023-08-12 13:20 | OT.IP.EVAL ---
Current Diagnoses Thrombocytopenia, unspecified (08/10/23) Age-related osteoporosis with current pathological fracture, left femur, initial encounter for fracture (08/10/23) Fracture of unspecified part of neck of unspecified femur, initial encounter for closed fracture (08/10/23) Surgery Performed Operation Date: 08/10/23 14:30 Actual Procedures p Hip Hemiarthroplasty Paramjit(Left) - Keesha Rudolph MD Occupational Therapy Inpatient Evaluation/Re-Eval M1 PT/OT-IP Prior Functional Status Start: 08/12/23 13:20 Freq: NEEDED Status: Active Protocol: Document 08/12/23 12:48 [facility] (Rec: 08/12/23 13:37 [facility] [id number]) Medical Review Prior Functional Status Medical History Reviewed Yes Communication WNL. Pt is an effective verbal communicator. Mobility and Gait Independent. Walks about a mile each evening and tracks her activity with her phone. Activities of Daily Living and IADL's Independent with all ADL and IADL's. Social History Household Members spouse Living Arrangements House Number of Floors (Floors) One Floor Number of Stairs To Enter/Railing? 1 step up on to porch and threshold to clear for home entry. Home Environment Standard Height Toilet,Walk in Shower Home Equipment Four Wheel Walker,Grab Bars Near Toilet,Grab Bars In Shower Employment Status Retired Additional Social History Comment Pt lives in [place] with her spouse, Anton. They have supportive daughters in the area. M2 OT-IP Current Condition Start: 08/12/23 13:20 Freq: Status: Active Protocol: Document 08/12/23 12:48 [facility] (Rec: 08/12/23 13:37 [facility] [id number]) Occupational Therapy Current Condition Current Condition Evaluation Date 08/12/23 Treatment Diagnosis Left femoral neck fracture, S/ P L ELYSSA Diagnosis Onset Date 08/10/23 Post Operative Precautions Posterior Hip Precautions No Hip Flexion > 90 degrees,No Hip Internal Rotation,No Hip Adduction M3 OT- IP Subjective and Pain Start: 08/12/23 13:20 Freq: Status: Active Protocol: Document 08/12/23 12:48 [facility] (Rec: 08/12/23 13:37 [facility] [id number]) OT- Subjective Occupational Therapy Visit Type Type Initial Evaluation Visit Start Time 10:55 Visit Stop Time 13:20 Total Visit Minutes 53 Notes Pt seen from [id number], and [id number] Occupational Therapy Visit Comments Patient Comments Pt agreed to get up. Patient/Caregiver Goals To go home. OT Pain Assessment Pain When Pain Assessed At Rest Pain Present Pain Present Pain Reported Location Left Hip Intensity 1 Scale Used Numeric (0 - 10) M4 OT- IP ADL's Start: 08/12/23 13:20 Freq: Status: Active Protocol: Document 08/12/23 12:48 [facility] (Rec: 08/12/23 13:37 [facility] [id number]) OT [id number] General Evaluation Self-Feeding Ability Independent OT ADL-Grooming General Evaluation Grooming Ability Independent Comments OT Grooming Comments Able to do while standing at the sink with FWW. OT ADL-Oral Care General Eval Oral Care Ability Independent OT ADL-Dressing General Eval Lower Body Dressing Ability Maximum Assistance Areas Needing Assistance Socks Comments OT Dressing Comments Educated best to dress her LLE first and take out last and use of LB dressing equipment or assist from her family. OT ADL-Toileting Comments OT Toileting Comments Pt still having zavala in place . Suggested pt get a BSC and use of pads at night. OT ADL-Bathing Comments OT Bathing Comments Not performed. M5 OT- IP IADL's Start: 08/12/23 13:20 Freq: Status: Active Protocol: Document 08/12/23 12:48 [facility] (Rec: 08/12/23 13:37 [facility] [id number]) OT-Instrumental Activities of Daily Living Deficits IADL Deficits Identified Deficits Home Safety Awareness Awareness of Need for Assistance at Home Good Awareness Ability to Problem Solve Emergency Able to Problem Solve Situations Home Safety Comments Pt's daughter to be staying with her to assist for her needs. M6 OT- IP Functional Cognition Start: 08/12/23 13:20 Freq: Status: Active Protocol: Document 08/12/23 12:48 [facility] (Rec: 08/12/23 13:37 [facility] [id number]) Cognitive Factors Limiting Selfcare Function Cognitive Ability Level of Alertness Alert Patient Orientation Name,Age,Birthday,Month,Date, Year,Day of Week,Place, Situation Attention Span Ability Capable of Focused Attention, Capable of Sustained Attention Ability to Follow Commands Able to Follow One Step Commands Cognitive Comments Cognitive Assessment Comments Pt able to follow commands for ADl and mobility needs. Pt able to states her precautions . OT- Vision and Hearing OT- Hearing Assessment OT- Hearing Assessment WFL OT- Vision Assessment Visual Acuity Glasses All The Time Visual Attentiveness WFL Occular Pursuits WFL M7 OT- IP Mobility and Balance Start: 08/12/23 13:20 Freq: Status: Active Protocol: Document 08/12/23 12:48 [facility] (Rec: 08/12/23 13:37 [facility] [id number]) OT- Bed Mobility Assessment Supine to Sit Supine to Sit Assist Minimal Assistance Sit to Supine Sit to Supine Assist Moderate Assistance Scooting Scooting to Edge of Bed Standby Assistance Scooting Up and Down in Bed Standby Assistance OT-Transfer Assessment Sit to and From Stand Sit to and from Stand Minimal Assistance Transfers Transfer Ability Contact Guard Assistance Technique Transfer Destination Bed Transfer Technique Stand Step Pivot Devices Transfer Assistive Devices Gait Belt,Front Wheeled Walker Comments Mobility Comments Pt show how to use gait belt around her LLE so able to assist to get out of bed as pt prefers the right side to get out of bed. BENNIE to assist and MODa to help get back in and also needing some assist with her trunk. BENNIE to stand. BP with HOB up 102/37, 108/40 . Sitting 112/43 and standing 100/31 and 101/39. Pt not symptomatic and nursing aware. OT- Balance Assessment Sitting Balance and Reactions Static Sitting Balance Ability Good Dynamic Sitting Balance Ability Good Standing Balance and Reactions Static Standing Balance Ability Fair Dynamic Standing Balance Ability Fair M8 OT- IP Objective Assessments Start: 08/12/23 13:20 Freq: Status: Active Protocol: Document 08/12/23 12:48 [facility] (Rec: 08/12/23 13:37 [facility] [id number]) OT Strength Upper Extremity Strength Assessment Within Functional Limits OT-Muscle Tone Assessment Muscle Tone WNL Yes M9 OT- IP Assessment and Plan Start: 08/12/23 13:20 Freq: Status: Active Protocol: Document 08/12/23 12:48 [facility] (Rec: 08/12/23 13:37 [facility] [id number]) OT Summary Assessment and Plan Potential Rehabilitation Potential Excellent Analytic Complexity at Evaluation Moderate Summary OT Impairments Pain,Strength,Balance, Functional Mobility,Dressing, Toileting,Bathing,Toilet Transfers,Shower Transfers, Activity Tolerance Progress Towards Goals Slow Progress due to Medical Issues Assessment Summary Pt doing well but having low BP. Able to go over OT equipment needs and how to incorporate her hip precautions during ADl and mobility needs. Pt has a very supportive daughter who will be staying with her. Pt to go home when medically stable with home health. Goals Dressing Goal Minimal Assistance Toileting Goal Independent Bathing Goal Standby Assistance Toilet Transfer Goal Independent Shower Transfer Goal Standby Assistance Patient/Caregiver Education Goal Demonstrate Post-Op Precautions,Caregiver Independent Assisting Patient Days to Meet Goals 10 Frequency of Treatment Frequency Of Treatment Once a Day Treatment Plan OT Treatment Plan ADL Training,Functional Mobility,Patient/Family Education,Discharge Planning Other Treatment Recommendations and Next shower Treatment Focus Discharge Recommendations OT Discharge Recommendations Home with 24/ Assist Available,Home Health Transportation Needs at Discharge Private Vehicle
--- NOTE | 2023-08-12 18:31 | P.PN_ITS ---
Subjective Subjective Interval history: Patient feeling well. BP improved. Hgb dipped from 9.3 to 8.2. No signs of bleeding. Exam Vital Signs (past 8 hours): - 08/12/23 12:00 Temperature 97.8 F Pulse Rate 87 Respiratory Rate 17 Blood Pressure 108/40 L Pulse Oximetry 94 Oxygen Flow Rate 0 Fraction of Inspired Oxygen 24 SaO2/FiO2 Ratio 404 Oxygen Delivery Method Nasal Cannula Oxygen Flow Rate 0 Narrative Exam Narrative: GEN: no acute distress, pleasant eldlerly woman HEENT: moist mucous membranes, PERRL NECK: trachea midline, no JVD CV: regular rate and rhythm, no murmurs PULM: clear bilaterally ABD: soft, nontender, nondistended, no organomegaly EXT: warm and well perfused with no edema NEURO: awake, alert, oriented, no focal deficits Objective Labs 08/12/23 05:10 08/12/23 05:10 Labs: Laboratory Results - last 24 hr 08/12/23 08/12/23 05:10 05:10 WBC 9.2 RBC 2.70 L Hgb 8.2 L Hct 24.0 L MCV 88.8 MCH 30.5 MCHC 34.4 RDW 13.7 Plt Count 59 L Neut % (Auto) 73.1 Lymph % (Auto) 11.6 L [place] % (Auto) 14.6 H Eos % (Auto) 0.5 L Baso % (Auto) 0.2 Neut # (Auto) 6700 Lymph # (Auto) 1100 [place] # (Auto) 1300 H Eos # (Auto) 0 Baso # (Auto) 0 Sodium 135 L Potassium 3.7 Chloride 106 Carbon Dioxide 26 BUN 12 Creatinine 0.78 Estimated GFR > 60 BUN/Creatinine Ratio 15.4 Glucose 94 Calcium 6.9 L PFSH Social History household members: spouse Smoking Status: Never smoker alcohol intake: never Assessment & Plan Assessment and plan (1) Fracture of left hip due to osteoporosis: Status: Acute (2) Closed hip fracture: Status: Acute (3) Thrombocytopenia: Status: Acute Assessment & Plan narrative: # left hip fracture s/p total hip replacement -tripped after getting out of recliner -hip x-ray confirms left femoral neck fracture -Dr. Faizan shaw consulted, repaired on 08/10 -pain control as needed -PT/OT evals # orthostatic hypotension, improving -unclear etiology but patient appears dry on exam, fluid responsive as BP now better s/p 2L boluses -monitor and check qshift orthostatics # leukocytosis, resolved -WBC up to 14.6 after surgery, likely reactive -procal neg -CXR negative -UA negative -WBC now normal # acute postop anemia -Hgb 12.8 to 9.9 following surgery, then down to 8.3 -no evidence of bleeding, likely from surgical losses vs dilutional -monitor # thrombocytopenia -worked out as outpatient, being followed by hematology -plt 52k -avoid lovenox # osteoporosis -patient currently on Fosamax weekly, holding while admitted -would likely benefit from addition of injectable osteoporosis medications ground level fall resulting in hip fracture -f/u with PCP # hyperlipidemia -hold lovastatin as not on formulary # hypertension -continue home propranolol Code status is full code. DVT prophylaxis with SCDs. Proxy is Anton. I have reviewed home meds and used all available resources to reconcile the home meds. Dispo: Home with HH likely on 08/13. Quality VTE Deep Vein Thrombosis/Pulmonary Embolism Present on Admission: No
[2023-08-12 19:47] VITALS: BP 122/46; PULSE 77; RESP 20; TEMP 37; O2SAT 93
[2023-08-13 05:29] LABS: Add Manual Diff / Slide Review NO; Basophils Absolute Auto 0 /uL (0-100); Basophils Percent Auto 0.3 % (0-2); Eosinophils Absolute Auto 200 /uL (0-450); Eosinophils Percent Auto 2.1 % (2-4); Hematocrit 25.5 % (36-46); Hemoglobin 8.6 g/dL (12.0-16.0); Lymphocytes Absolute Auto 800 /uL (1100-4500); Lymphocytes Percent Auto 9.9 % (25-40); Mean Corpuscular HGB Conc 33.7 % (30-36); Mean Corpuscular Hemoglobin 30.1 PG (26-34); Mean Corpuscular Volume 89.3 fL (80-100); Monocytes Absolute Auto 1000 /uL (0-900); Monocytes Percent Auto 11.6 % (3-14); Neutrophils Absolute Auto 6300 /uL (1500-7000); Neutrophils Percent Auto 76.1 % (50-75); Platelet Count 63 X10^3/uL (150-400); Red Blood Cell Count 2.86 X10^6/uL (4.0-5.2); Red Cell Distribution Width 13.8 % (11.6-14.8); White Blood Cell Count 8.3 X10^3/uL (4.5-11.0)
[2023-08-13 05:39] LABS: BUN Creatinine Ratio 18.2 (6-22); Blood Urea Nitrogen 12 mg/dL (7-17); Calcium 7.2 mg/dL (8.4-10.2); Carbon Dioxide 26 mmol/L (22-32); Chloride 103 mmol/L (98-107); Estimated Glomerular Filt Rate > 60 mL/min (>60); Glucose 102 mg/dL (80-110); HEMOLYSIS < 15 (0-50); Potassium 3.5 mmol/L (3.4-5.1); Sodium 135 mmol/L (137-145)
[2023-08-13 08:00] VITALS: BP 132/58; PULSE 106; RESP 18; TEMP 36; O2SAT 95
--- NOTE | 2023-08-13 08:28 | CM.DPC ---
DCP Note Cont. [employer] TENNIS COACH faxed F/F to [facility] , orders placed in EMR. Family to transport home. No further needs identified for D/C plan at this time.
[2023-08-13] MEDS: ONDANSETRON 4 MG ODT PO (08:45)
[2023-08-13] MEDS: PANTOPRAZOLE DR 40 MG TABLET PO (08:45)
[2023-08-13] MEDS: DOCUSATE 100 MG CAPSULE PO (08:45)
[2023-08-13] MEDS: CALCIUM CARBONATE 500 MG TAB PO (08:45)
[2023-08-13] MEDS: ACETAMINOPHEN 325 MG TABLET 650 MG PO (08:45)
[2023-08-13] MEDS: CHOLECALCIFEROL (VITAMIN D3) 1,000 UNIT TABLET 2000 UNIT PO (08:45)
[2023-08-13] MEDS: OXYCODONE IR 5 MG TABLET PO (08:45)
[2023-08-13] MEDS: POTASSIUM CHLORIDE 20 MEQ TAB 40 MEQ PO (08:47)
[2023-08-13] MEDS: SODIUM CHLORIDE 0.9% FLUSH 10 ML IV (08:47)
--- NOTE | 2023-08-13 08:56 | PM.DS.1 ---
History of Present Illness History of Present Illness Date Patient Seen: 08/10/23 Time Patient Seen: 14:00 Chief complaint: GLF last night. L hip pain Narrative: Ayad Whitley is an 83-year-old female with past medical history of osteoporosis, hypertension, and hyperlipidemia who presents with ground level fall resulting in left femoral neck fracture. Patient was getting up out of her recliner and lost her balance, landing on the hardwood floor on her left side. She had pain in her hip but only thought it was bruised because she was able to bear some weight on it. She waited until the next day and the pain continued to worsen so she presented to the ED where a left hip fracture was confirmed. She currently says her pain is manageable if she doesn't move her left leg. She denies striking her head. Did not lose consciousness. She denies lightheadedness, CP, SOB, NV, abd pain, dysuria or diarrhea. Discharge Providers Provider Date of admission: 08/10/23 09:05 Discharge Date: 08/13/23 Primary care physician: Dimitrios Ji DO Consults: 08/10/23 09:08 Consult to CONSULTATIVE SALES ASSOCIATE - [employer] Routine Comment: may need SNF Consult to Orthopedic Surgery Routine Comment: Consulting Provider: Ki Gloria Reason for consultation: L hip fracture Has provider been notified: Yes 08/10/23 17:14 Consult to Discharge Planning Routine Comment: Consult to Occupational Therapy Evaluate & Treat Comment: Physician Instructions: Evaluate and treat Consult to Physical Therapy Evaluate & Treat Comment: Hemiarthroplasty, posterior approach Physician Instructions: post op ELYSSA protocol 08/13/23 08:26 Consult to Home Health Routine Comment: L-hip replacement Reason For Exam: Set-up RN/PT/OT/Bath Aide Discharge provider: Nadeem Riley DO Summary Hospital Course Discharge Diagnosis: # left hip fracture s/p total hip replacement -tripped after getting out of recliner -hip x-ray confirms left femoral neck fracture -Dr. Gloria ortho consulted, repaired on 08/10 -pain control as needed -PT/OT evals # orthostatic hypotension, improving -unclear etiology but patient appears dry on exam, fluid responsive as BP now better s/p 2L boluses -monitor and check qshift orthostatics # leukocytosis, resolved -WBC up to 14.6 after surgery, likely reactive -procal neg -CXR negative -UA negative -WBC now normal # acute postop anemia -Hgb 12.8 to 9.9 following surgery, then down to 8.3. Stable at 8.6. -no evidence of bleeding, likely from surgical losses vs dilutional -will obtain CBC in 1 week after discharge # thrombocytopenia -worked out as outpatient, being followed by hematology -plt 63k -hemetology ok with lovenox if plt >50k -lovenox x4 weeks ?# osteoporosis -patient currently on Fosamax weekly, holding while admitted -would likely benefit from addition of injectable osteoporosis medications ground level fall resulting in hip fracture -f/u with PCP # hyperlipidemia -hold lovastatin as not on formulary # hypertension -continue home propranolol Hospital Course: See above problem list. Exam Vital Signs (past 8 hours): - 08/13/23 08:00 Temperature 96.8 F L Pulse Rate 106 H Respiratory Rate 18 Blood Pressure 132/58 L Pulse Oximetry 95 Fraction of Inspired Oxygen 24 SaO2/FiO2 Ratio 404 Oxygen Delivery Method Nasal Cannula Oxygen Flow Rate 0 Narrative Exam Narrative: GEN: no acute distress, pleasant eldlerly woman HEENT: moist mucous membranes, PERRL NECK: trachea midline, no JVD CV: regular rate and rhythm, no murmurs PULM: clear bilaterally ABD: soft, nontender, nondistended, no organomegaly EXT: warm and well perfused with no edema NEURO: awake, alert, oriented, no focal deficits Objective Labs 08/13/23 05:09 08/13/23 05:09 Labs: Laboratory Results - last 24 hr 08/13/23 08/13/23 05:09 05:09 WBC 8.3 RBC 2.86 L Hgb 8.6 L Hct 25.5 L MCV 89.3 MCH 30.1 MCHC 33.7 RDW 13.8 Plt Count 63 L Neut % (Auto) 76.1 H Lymph % (Auto) 9.[address] [place] % (Auto) 11.6 Eos % (Auto) 2.1 Baso % (Auto) 0.3 Neut # (Auto) 6300 Lymph # (Auto) [address] [place] # (Auto) 1000 H Eos # (Auto) 200 Baso # (Auto) 0 Sodium 135 L Potassium 3.5 Chloride 103 Carbon Dioxide 26 BUN 12 Creatinine 0.66 Estimated GFR > 60 BUN/Creatinine Ratio 18.2 Glucose 102 Calcium 7.2 L [facility] Social History household members: spouse Smoking Status: Never smoker alcohol intake: never Discharge Plan Discharge Plan Patient Disposition: Home Health Service Provider Discharge Comment: You broke your left hip after a fall and ortho fixed it. You will now need to be on a blood thinner for 4 weeks. Please get your blood counts checked in 1 week and send to your PCP for review. Discharge orders & Medications Prescriptions: New oxycodone-acetaminophen [Percocet] 5-325 mg tablet 1 tab PO Q4-6H PRN (Reason: pain) Qty: 20 0RF enoxaparin [Lovenox] 40 mg/0.4 mL syringe 40 mg SUBCUT DAILY 28 Days Qty: 12 0RF Continued alendronate [Fosamax] 70 mg tablet 70 mg PO QWEEK famotidine 10 mg tablet 10 mg PO DAILY propranolol 60 mg capsule,extended release 24 hr 60 mg PO DAILY rosuvastatin 5 mg tablet 5 mg PO ONCE PM magnesium oxide 400 mg (241.3 mg magnesium) tablet 400 mg PO DAILY calcium citrate 250 mg calcium Tablet 250 mg PO DAILY cholecalciferol (vitamin D3) 50 mcg (2,000 unit) Capsule 50 mcg PO DAILY multivit with min-folic acid [Adult Multivitamin Gummies] 120 mcg Tablet,Chewable 2 tab PO DAILY Follow up/Referrals: Keesha Rudolph MD [Physician] - 08/20/23 2:30 pm (*APPT:08/20 check in @ 2:10 for a 2:30 with mesha tavera for staple removal and wound check @ [address] [facility] *APPT: 09/23 check in @ 9:10 for a 9:[address] Rudloph @ [address] [facility] for x-rays and symptom check ) Jaden Azevedo MD [Non-Staff] - 08/26/23 9:20 am (Appt:08/26 check in at 9:10 for a 9:[address] skinner (same office as Dr Azevedo)) Other Ambulatory Orders: Complete Blood Count AUTO DIFF (Urgent) Timeframe: 1 Week Facility: [facility] - Location: Laboratory Ordered By: Nadeem Riley Diet/Activity/Treatments Activity: Weightbearing as tolerated to left leg. Posterior hip precautions x 6 weeks. Skin/Wound/Dressing Care Dressing: May shower. Leave dressing in place until follow up in office. No bathing or otherwise soaking incision. Call the office if the dressing becomes saturated inside. Visit Report/Discharge Packet Instructions: DI for Hip Replacement Stand Alone Forms: Patient Portal/API, Stroke Signs & Symptoms, Surgery Discharge Discharge Data Primary Care Provider: Dimitrios Ji Discharges patient from system. Discharge Date/Time: 08/13/23 13:45 Quality VTE Deep Vein Thrombosis/Pulmonary Embolism Present on Admission: No
[2023-08-13] MEDS: ENOXAPARIN 40 MG/0.4 ML SYRINGE SUBCUT (09:42)
--- NOTE | 2023-08-13 10:48 | PT.IPTN ---
Current Diagnoses Anemia, unspecified (08/10/23) Thrombocytopenia, unspecified (08/10/23) Age-related osteoporosis with current pathological fracture, left femur, initial encounter for fracture (08/10/23) Fracture of unspecified part of neck of unspecified femur, initial encounter for closed fracture (08/10/23) Surgery Performed Operation Date: 08/10/23 14:30 Actual Procedures p Hip Hemiarthroplasty Paramjit(Left) - Keesha Rudolph MD Physical Therapy Treatment Note M2 PT-IP Current Condition Start: 08/11/23 08:23 Freq: NEEDED Status: Active Protocol: Document 08/11/23 09:52 AW (Rec: 08/11/23 11:13 AW [id number]) Physical Therapy Current Condition Current Condition Evaluation Date 08/11/23 Treatment Diagnosis L femoral neck fx s/p hemiarthroplasty; impaired mobility and gait Onset Date 08/10/23 M3 PT-IP Subjective Start: 08/11/23 08:23 Freq: NEEDED Status: Active Protocol: Document 08/13/23 11:45 TS (Rec: 08/13/23 12:04 TS [id number]) Subjective Physical Therapy Visit Type Type Treatment Note Visit Start Time 10:48 Visit Stop Time 11:15 Total Visit Minutes 27 Notes Daughter present Number of MACHINE OPERATIONS SUPERVISOR Visits 3 Physical Therapy Visit Comments Patient Comments Pt reports having shower this morning and getting slightly dizzy afterwards. She is a little tired but is motivated to work with PT. Therapy Pain Assessment Pain When Pain Assessed During Mobility Pain Present Pain Present Pain Reported M4 PT-IP Mobility and Gait Start: 08/11/23 08:23 Freq: NEEDED Status: Active Protocol: Document 08/13/23 11:45 TS (Rec: 08/13/23 12:04 TS [id number]) PT-Bed Mobility Assessment Sit to Supine Sit to Supine Minimal Assistance,1 Person Assistance,Bedrails PT-Transfer Assessment Sit to and From Stand Sit to and from Stand Contact Guard Assistance,1 Person Assistance,Use of Upper Extremities Equipment Transfer Assistive Device Gait Belt,Front Wheeled Walker Orthotic/Prosthetic Devices or Brace: No Comments Mobility Comments Pt found resting chair, agreeable to PT. She recalled 2/3 hip precautions prior to mobility(no crossing of legs). Sit to stand w/FWW CGA, pt demonstrated good carryover of sit to stand technique. She ambulated ~15' in room SBA/CGA w/FWW and slow step to gait, required cues to lead with affected LE. She performed steps x2 on platform step w/ FWW, demonstrated some carryover but required cues for stepping up with non- surgical side. She performed backwards step on stool for sitting onto bed CGA, she cued self for step sequencing. Sit to supine with use of gait belt strap Claudia for LLE into bed. Pt was left in bed with call light nearby, daughter in room. Gait Assessment Gait Gait Assistance Required: Standby Assistance,Contact Guard Assist,1 Person Assist Distance (Feet) 15 Assistive Devices Assistive Device Front Wheeled Walker Orthotic/Prosthetic Devices or Brace: No Gait Deviations General Gait Pattern Antalgic,Decreased Stride Length,Decreased Feet Clearance,Flexed Trunk,Step-to Gait Factors Limiting Gait Function Factors Limiting Gait Function Decreased Activity Tolerance, Decreased Strength,Pain,Poor Balance Comments Gait Comments See mobility comments. Stair Climbing Assessment Evaluation Level of Assist On Stairs Contact Guard Assistance,1 Person Assistance Devices Stair Climbing Assistive Devices Front Wheel Walker Technique/Endurance Stair Climbing Direction Ascend and Descend Stair Climbing Technique Step to Step Number of Steps Climbed 3 Comments Stair Climbing Comments Pt performed step x2 on platform step and bacwards step x1 on stool for sitting EOB. See mobility comments. PT-Balance Assessment Sitting Balance and Reactions Static Sitting Balance Ability Good Dynamic Sitting Balance Ability Good Standing Balance and Reactions Static Standing Balance Ability Good Dynamic Standing Balance Ability Fair Device Used FWW M5 PT-IP Objective Assessments Start: 08/11/23 08:23 Freq: NEEDED Status: Active Protocol: Document 08/11/23 09:52 AW (Rec: 08/11/23 11:13 AW [id number]) Orientation Orientation/Cognition Level of Alertness Alert Orientation Name,Day of Week,Place, Situation Safety Awareness Understands Safety Issues Memory Description No Deficits Noted Comments Able to teach back all precautions Gross Range of Motion Upper Extremity ROM Assessment Within Functional Limits Lower Extremity ROM Assessment Left Impaired Strength Upper Extremity Strength Assessment Within Functional Limits Lower Extremity Strength Assessment Left Impaired Hip flexion and abduction 3-/5 Knee ext 4/5 flex 4-/5 Ankle DF 4+/5 Comments Strength Comments RLE grossly 4+/5 hip to 5/5 distally Sensation Assessment Sensation Gross Sensation WNL Other Assessments Other Other Assessments 99/42 66 supine 106/43 73 sitting 69/29 72 standing 92/34 56 returned to supine M6 PT-IP Treatment Start: 08/11/23 08:23 Freq: NEEDED Status: Active Protocol: Document 08/13/23 11:45 TS (Rec: 08/13/23 12:04 TS [id number]) Physical Therapy Treatment Education Education Provided Precautions,Safety M7 PT-IP Assessment and Plan Start: 08/11/23 08:23 Freq: NEEDED Status: Active Protocol: Document 08/13/23 11:45 TS (Rec: 08/13/23 12:04 TS [id number]) PT Summary Assessment and Plan Potential Rehabilitation Potential Good Summary Impairments Pain,ROM,Strength,Balance,Bed Mobility,Transfers,Gait Progress Towards Goals Progressing Toward Goals Assessment Summary Flakita continues to make good progress with her mobility. She continues to need some cueing for step sequencing for stairs and which LE to lead with when ambulating. She continues to recall 2/3 hip precuations, could not recall no crossing of legs. She improved her bed mobility with use of gait belt for assisting LLE into bed with decreased assist. PT continues to recommend home with 24/7 assist and HHPT. Goals Bed Mobility Goal Standby Assistance Transfer Goal Standby Assistance,Front Wheeled Walker Gait Goal Standby Assistance,Front Wheel Walker Gait Distance 75 Other Goals - pt climbs one step using FWW with CGA Days to Meet Goals 5 Frequency of Treatment Frequency Of Treatment Twice a Day Treatment Plan Physical Therapy Treatment Plan Bed Mobility Training,Transfer Training,Gait Training, Therapeutic Exercise,Balance Retraining,Post Op Education, Discharge Planning,Hot or Cold Pack,Neuromuscular Re-ed Other Recommendations and Next Treatment monitor BP; assess transfers Focus and gait as able; reinforce precautions Precautions Posterior Hip Precautions No Hip Flexion > 90 degrees,No Hip Internal Rotation,No Hip Adduction Weight Bearing Status Weight Bearing Status Weight Bear as Tolerated Recommendations To Nursing Amount of Assist Needed 1 Person Assist Discharge Recommendations PT Discharge Recommendations Home with 24/7 Assist Available,Home Health Equipment Needed for Home Before Daughter reports having FWW, Discharge raised toilet seat, shower chair. Daughter will attempt to get BSC today 08/12.
--- NOTE | 2023-08-13 11:59 | OT.IP.TRT ---
Current Diagnoses Anemia, unspecified (08/10/23) Thrombocytopenia, unspecified (08/10/23) Age-related osteoporosis with current pathological fracture, left femur, initial encounter for fracture (08/10/23) Fracture of unspecified part of neck of unspecified femur, initial encounter for closed fracture (08/10/23) Surgery Performed Operation Date: 08/10/23 14:30 Actual Procedures p Hip Hemiarthroplasty Paramjit(Left) - Keesha Rudolph MD Occupational Therapy Treatment Note M2 OT-IP Current Condition Start: 08/12/23 13:20 Freq: Status: Active Protocol: Document 08/12/23 12:48 [facility] (Rec: 08/12/23 13:37 [facility] [id number]) Occupational Therapy Current Condition Current Condition Evaluation Date 08/12/23 Treatment Diagnosis Left femoral neck fracture, S/ P L ELYSSA Diagnosis Onset Date 08/10/23 Post Operative Precautions Posterior Hip Precautions No Hip Flexion > 90 degrees,No Hip Internal Rotation,No Hip Adduction M3 OT- IP Subjective and Pain Start: 08/12/23 13:20 Freq: Status: Active Protocol: Document 08/13/23 11:59 [facility] (Rec: 08/13/23 12:05 [facility] [id number]) OT- Subjective Occupational Therapy Visit Type Type Treatment Note Visit Start Time 11:40 Visit Stop Time 11:59 Total Visit Minutes 19 Occupational Therapy Visit Comments Patient Comments Pt just resting in bed after working with PT and wanting to finalize OT ADL needs and strategies. Patient/Caregiver Goals To go home. OT Pain Assessment Pain When Pain Assessed At Rest Pain Present Pain Present Denied Pain M4 OT- IP ADL's Start: 08/12/23 13:20 Freq: Status: Active Protocol: Document 08/13/23 11:59 [facility] (Rec: 08/13/23 12:05 [facility] [id number]) OT MLD-Rvxu-Cstkjvr General Evaluation Self-Feeding Ability Independent OT ADL-Dressing Comments OT Dressing Comments Reminded pt to dress the LLE first and take out last. In addition to heather her underwear while seated and then PJ pants and then stand up one time to pull up both items. OT ADL-Toileting Comments OT Toileting Comments Pt states has the BSC ordered to come tomorrow. OT ADL-Bathing Comments OT Bathing Comments Pt already shower with nursing staff today. M5 OT- IP IADL's Start: 08/12/23 13:20 Freq: Status: Active Protocol: Document 08/12/23 12:48 [facility] (Rec: 08/12/23 13:37 [facility] [id number]) OT-Instrumental Activities of Daily Living Deficits IADL Deficits Identified Deficits Home Safety Awareness Awareness of Need for Assistance at Home Good Awareness Ability to Problem Solve Emergency Able to Problem Solve Situations Home Safety Comments Pt's daughter to be staying with her to assist for her needs. M6 OT- IP Functional Cognition Start: 08/12/23 13:20 Freq: Status: Active Protocol: Document 08/13/23 11:59 [facility] (Rec: 08/13/23 12:05 [facility] [id number]) Cognitive Factors Limiting Selfcare Function Cognitive Comments Cognitive Assessment Comments Intact M8 OT- IP Objective Assessments Start: 08/12/23 13:20 Freq: Status: Active Protocol: Document 08/12/23 12:48 [facility] (Rec: 08/12/23 13:37 [facility] [id number]) OT Strength Upper Extremity Strength Assessment Within Functional Limits OT-Muscle Tone Assessment Muscle Tone WNL Yes M9 OT- IP Assessment and Plan Start: 08/12/23 13:20 Freq: Status: Active Protocol: Document 08/13/23 11:59 [facility] (Rec: 08/13/23 12:05 [facility] [id number]) OT Summary Assessment and Plan Potential Rehabilitation Potential Excellent Analytic Complexity at Evaluation Moderate Summary Progress Towards Goals Progressing Toward Goals Assessment Summary Able to finalize OT needs and strategies for ADl needs. Pt' s daughter to be staying with pt to assist with her needs and to be getting home health. Goals Dressing Goal Minimal Assistance Toileting Goal Independent Bathing Goal Standby Assistance Toilet Transfer Goal Independent Shower Transfer Goal Standby Assistance Patient/Caregiver Education Goal Demonstrate Post-Op Precautions,Caregiver Independent Assisting Patient Days to Meet Goals 9 Frequency of Treatment Frequency Of Treatment Once a Day Treatment Plan OT Treatment Plan ADL Training,Functional Mobility,Patient/Family Education,Discharge Planning Discharge Recommendations OT Discharge Recommendations Home with 24/7 Assist Available,Home Health Transportation Needs at Discharge Private Vehicle
== END 2023-08-13 13:45 | disposition home health service (06) | DRG 522 ==
LOC: ED 09:05 → AC 09:06
PROVIDERS: Orthopaedic Surgery Foot and Ankle Surgery; Admitting Provider Student in an Organized Health Care Education/Training Program; Emergency Provider Emergency Medicine; PCP Family Medicine; Referring Provider Emergency Medicine; Visit Provider Student in an Organized Health Care Education/Training Program
PROC: 0SRS0JZ Replacement of Left Hip Joint, Femoral Surface with Synthetic Substitute, Open Approach (ICD-10-PCS; CPT 27125; principal; 2023-08-10 14:30)
DX: M80.852A Other osteoporosis with current pathological fracture, left femur, initial encounter for fracture (principal); D62 Acute posthemorrhagic anemia; D69.6 Thrombocytopenia, unspecified; I10 Essential (primary) hypertension; E78.5 Hyperlipidemia, unspecified; I95.1 Orthostatic hypotension; W01.0XXA Fall on same level from slipping, tripping and stumbling without subsequent striking against object, initial encounter
CPT/HCPCS: 36415; 71045; 72170; 73502; 80048; 80053; 81001; 83605; 83735; 84145; 84484; 85025; 85610; 94762; 96374; 97116; 97162; 97166; 97530; 97535; 99284; C1776; C9290; J0171; J0690; J1100; J1650; J2270; J2405; J2704; J3010

== ENCOUNTER → 2023-08-20 10:54 | Outpatient (CLI) | payer MEDICARE, OTHER, SELFPAY ==
[2023-08-10 09:09] VITALS: BMI 24.0
[2023-08-21 10:58] LABS: Add Manual Diff / Slide Review NO; Basophils Absolute Auto 100 /uL (0-100); Basophils Percent Auto 0.6 % (0-2); Eosinophils Absolute Auto 100 /uL (0-450); Eosinophils Percent Auto 1.4 % (2-4); Hematocrit 29.8 % (36-46); Hemoglobin 9.8 g/dL (12.0-16.0); Lymphocytes Absolute Auto 1300 /uL (1100-4500); Lymphocytes Percent Auto 14.1 % (25-40); Mean Corpuscular Hemoglobin 30.2 PG (26-34); Mean Corpuscular Volume 91.5 fL (80-100); Monocytes Absolute Auto 1300 /uL (0-900); Monocytes Percent Auto 13.9 % (3-14); Neutrophils Absolute Auto 6400 /uL (1500-7000); Platelet Count 216 X10^3/uL (150-400); Red Blood Cell Count 3.26 X10^6/uL (4.0-5.2); Red Cell Distribution Width 14.6 % (11.6-14.8); White Blood Cell Count 9.2 X10^3/uL (4.5-11.0)
== END ==
PROVIDERS: PCP Family Medicine; Referring Provider Student in an Organized Health Care Education/Training Program; Visit Provider Student in an Organized Health Care Education/Training Program
DX: D64.9 Anemia, unspecified (principal); D69.6 Thrombocytopenia, unspecified; M80.052A Age-related osteoporosis with current pathological fracture, left femur, initial encounter for fracture
CPT/HCPCS: 36415; 85025

== ENCOUNTER 2023-11-19 09:45 | Outpatient (RCR) | payer MEDICARE, OTHER, SELFPAY ==
[2023-08-10 09:09] VITALS: BMI 24.0
--- NOTE | 2023-10-08 12:27 | PT.OIE ---
Current Diagnoses Other abnormalities of gait and mobility (10/08/23) Personal history of (healed) traumatic fracture (10/08/23) Visit Care Team Role Provider Type Jaden Azevedo MD Family Provider Non-Staff Primary Care Provider Specialty: Family Practice Address: [address], [address], [place], [address] Email: Ayana Bal MD Attending Provider Non-Staff Referring Provider Specialty: Medical Address: [address], [place], [address] Email: Physical Therapy Initial Evaluation PT-OP-A Visit Information Start: 10/08/23 10:44 Freq: Status: Active Protocol: Document 10/08/23 10:45 NM (Rec: 10/08/23 11:57 NM [id number]) Out-Patient Physical Therapy Visit Information Visit Information Visit Type Initial Evaluation Visit Start Time 09:45 Visit Stop Time 10:35 Total Visit Minutes 50 Evaluation Information Evaluation Date 10/08/23 Precautions Precautions None as of date of initial evaluation (prior to 6 wks post op- posterior hip precautions. Confirmed with Dr. Rudolph by phone prior to eval. PT-OP-B Current Condition Start: 10/08/23 10:44 Freq: Status: Active Protocol: Document 10/08/23 10:45 NM (Rec: 10/08/23 11:57 NM [id number]) Current Condition History of Current Condition Onset Date 08/10/23 Current Complaints weakness, L hip discomfort/ pain, difficulty walking History of Current Condition Pt presents s/p L hip frx following a fall out of a chair. Pt reports that she was sitting in her recliner when she attempted to get up without waking her , but lost her balance and fell onto her L hip. She underwent a L hemiarthroplasty on . Pt received home health PT for several weeks and was compliant with posterior hip precautions. At this time, pt does not have any hip precautions. Currently, she is able to ambulate without an AD, but she has a cane that she keeps in the car when she travels to environments with unknown terrain. She has 1 step to enter/exit home. Prior to this fall, pt reports that she has not had any falls in several years. She was recently diagnosed with osteoporosis. She wants to get back to walking 1 mile/day without pain. Prior Treatments and Tests PT Treatment Goals Patient/Caregiver Goals Walk at least 1 mi. 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 Walks 1 mi/day PT-OP-C Subjective Start: 10/08/23 12:22 Freq: Status: Active Protocol: Document 10/08/23 12:23 NM (Rec: 10/08/23 12:27 NM [id number]) Patient Questionnaires Lower Extremity Functional Scale LEFS Score 49/80 LEFS Impairment 20 to 39% Impaired (Score 48- 62) OP-PT Pain Assessment Pain Assessment Grid Paper Pain Assessment Grid Completed Yes Location Left Hip Pain Location Details posterior hip Intensity 3 Scale Used Numeric (0 - 10) Description Aching,With Movement Frequency Intermittent Pain Aggravating Factors Activity,Exercise,Standing, Sitting Pain Alleviating Factors Rest Patient Stated Pain Goal walk without pain PT-OP-D Balance Start: 10/08/23 10:44 Freq: Status: Active Protocol: Document 10/08/23 10:45 NM (Rec: 10/08/23 11:57 NM [id number]) OP-PT Balance Assessment Sitting Balance Static Sitting Balance Ability Normal Dynamic Sitting Balance Ability Normal Standing Balance Static Standing Balance Ability Good Dynamic Standing Balance Ability Good Balance Tests Shah Balance Test Shah Balance Test Score 45/56 Shah Impairment Rating 1 to 19% Impaired (Score 45-55 ) Marcano Fall Scale Copyright Permission PT-OP-E Functional Tests Start: 10/08/23 10:44 Freq: Status: Active Protocol: Document 10/08/23 10:45 NM (Rec: 10/08/23 11:57 NM [id number]) Functional Tests 6 Minute Walk Test Distance 802 m Device Used none Comments Antalgic; Ind;gait speed decreased with time. Dev ant hip pain >4 min Five Times Sit to Stand Test Score 12 sec Comments Mild sway, no LOB with repetition, no hands PT-OP-G Mobility & Gait Start: 10/08/23 10:44 Freq: Status: Active Protocol: Document 10/08/23 10:45 NM (Rec: 10/08/23 11:57 NM [id number]) OP Gait Assessment Gait Gait Assistance Required: Independent Able to Maintain Weight Bearing Status Yes During Gait Assistive Devices Assistive Device None,Straight Cane Gait Deviations General Gait Pattern Antalgic,Decreased Stride Length,Flexed Trunk Factors Limiting Gait Function Factors Limiting Gait Function Decreased Activity Tolerance Stair Climbing Evaluation Evaluation Level of Assist On Stairs Standby Assistance,Contact Guard Assistance Devices Stair Climbing Assistive Devices None Technique/Endurance Stair Climbing Direction Ascend and Descend Stair Climbing Technique Step to Step Number of Steps Climbed 4 Stair Climbing Set # Repetitions (reps) 1 Comments Stair Climbing Comments Able to ascend without UE use and SBA. Descends with 1 RURAL CARRIER and CGA for steadying PT-OP-J Posture/Palpation/Skin Start: 10/08/23 10:44 Freq: Status: Active Protocol: Document 10/08/23 10:45 NM (Rec: 10/08/23 11:57 NM [id number]) Posture Evaluation Position Standing Evaluation View Lateral T-Spine Posture Increased Kyphosis L-Spine Posture Increased Lordosis Shoulder Posture (R) Forward,(L) Elevated Pelvis Posture Anteriorly Tilted Hip Posture (L) Externally Rotated Knee Posture (L) Genu Valgus,(R) Genu Valgus Skin Assessment Incisional Assessment Incision Appearance/Comments Intact. Would benefit from scar mobilization to prevent adhesions Other Assessments Skin Assessment Comments Pt has some mild swelling in lateral ankle but comparable size to RLE PT-OP-K Range of Motion Start: 10/08/23 10:44 Freq: Status: Active Protocol: Document 10/08/23 10:45 NM (Rec: 10/08/23 11:57 NM [id number]) Hip Goniometric Range of Motion Hip Right Hip ROM WFL No Testing Position Supine Flexion w/Knee Flexed 100 Extension 10 Abduction 14 Internal Rotation 34 External Rotation 20 Left Hip ROM WFL No Testing Position Supine Flexion w/Knee Flexed 100 Extension 5 Abduction 14 Internal Rotation 20 External Rotation 15 Comments No pain with any active movement Hip ROM Limitations Hip ROM Limitations Soft Tissue Tightness,Muscle Weakness,Swelling Knee Goniometric Range of Motion Knee Right Knee ROM WFL Yes Patient Position Supine Flexion Active (degrees) 146 Extension Active (degrees) 5 Left Knee ROM WFL Yes Patient Position Supine Flexion Active (degrees) 130 Extension Active (degrees) 5 Knee ROM Limitations Knee ROM Limitations Soft Tissue Tightness Comments some limitation in L knee due to L hip ROM limitations PT-OP-M Strength Start: 10/08/23 10:44 Freq: Status: Active Protocol: Document 10/08/23 10:45 NM (Rec: 10/08/23 11:57 NM [id number]) Hip Strength Hip Manual Muscle Testing Right Flexion (L2) 4 Good Extension (S1) 3 Fair Abduction 4- Good- Adduction 4 Good External Rotation 4+ Good+ Internal Rotation 4+ Good+ Comments Only able to extend through ROM during hip ext, unable to withstand any resistance. Left Flexion (L2) 4- Good- Extension (S1) 3 Fair Abduction 4- Good- Adduction 4- Good- External Rotation 4- Good- Internal Rotation 4- Good- Comments Min pain with hip flex. Only able to extend through ROM during hip ext, unable to withstand any resistance. Difficulty with straight leg raise from table without ant hip pain, only able to lift 4 . Knee Strength Knee Manual Muscle Testing Right Flexion (S2) 4+ Good+ Extension (L3) 4+ Good+ Left Flexion (S2) 4- Good- Extension (L3) 4- Good- Comments No pain PT-OP-Q Treatments Start: 10/08/23 10:44 Freq: Status: Active Protocol: Document 10/08/23 10:45 NM (Rec: 10/08/23 11:57 NM [id number]) Therapeutic Exercises Sitting Exercises Hip adduction Sitting Exercise Name HEP Side bilateral Equipment Used pillow Reps/Minutes 10 Comments no pain Hip abduction Sitting Exercise Name HEP Side bilateral Resistance blue resistance band (level 4) Reps/Minutes 10 Comments no pain Standing Exercises Squats Standing Exercise Name HEP Side bilateral Resistance body weight Equipment Used chair behind, table or countertop in front for stability if needed Reps/Minutes 5 Comments cues to touch bottom to chair and try not to use UE except for balance PT-OP-T Assessment and Plan Start: 10/08/23 10:44 Freq: Status: Active Protocol: Document 10/08/23 10:45 NM (Rec: 10/08/23 11:57 NM [id number]) Physical Therapy Assessment Rehab Potential Rehabilitation Potential Excellent Evaluation Complexity Number of Personal Factors/Comorbidities 1-2 Number of Body Systems Impaired 1-2 Clinical Presentation at Evaluation Stable Impairments Impairments Activity Tolerance,Balance, Functional Activities, Functional Mobility,Gait,Pain, ROM,Soft Tissue Mobility, Strength Other Impairments Body mechanics Goals Five Impairment ROM Impairment L hip IR and ER ROM limited ( 20 deg and 15 deg, respectively) Short Term Goal (STG) Pt will improve L hip IR and ER by at least 5 deg. STG Duration 3 weeks Detention Goal (LTG) Pt will improve L hip IR and ER to be within at least 5 degrees of R hip IR and ER to demonstrate improved hip ROM for gait and stairs. LTG Duration 6 weeks Four Impairment function Impairment body mechanics, lifting due to osteoporosis Short Term Goal (STG) Pt will be educated on and demonstrate understanding of importance of good spinal/hip body mechanics during lifting objects from the ground/lower height or carrying objects due to risk of fracture with osteoporosis. STG Duration 3 weeks Detention Goal (LTG) Pt will demonstrate safe body mechanics and maintain balance while picking up an object from the ground or a lower height and while carrying objects during at least 7/10 trials in order to decrease risk of fracture from osteoporosis and show good understanding of risks. Three Impairment strength Impairment Current L hip flexion and abduction strength 4-/5 Short Term Goal (STG) Pt will improve L hip flexion and abduction MMT to at least 4/5 strength with 2/10 pain or less in order to demonstrate improved strength needed for gait and stairs. STG Duration 3 weeks Detention Goal (LTG) Pt will improve L hip flexion and abduction MMT to at least 4+/5 strength without pain in order to demonstrate improved strength and activity tolerance. LTG Duration 6 weeks Two Impairment Balance Impairment Shah score 45/56 Short Term Goal (STG) Pt will increase Shah balance score by at least 2 points in order to decrease fall risk and demonstrate improved strength and balance. STG Duration 3 weeks Detention Goal (LTG) Pt will increase Shah balance score by at least 4 points ( MCID) in order to decrease fall risk and to demonstrate improved strength and balance. LTG Duration 6 weeks One Impairment function Impairment Current 6MWT = 802 m (2631 ft) Short Term Goal (STG) Pt will increase 6 MWT distance by 500 feet to demonstrate improved strength and activity tolerance. STG Duration 3 weeks Heel Seat Pounder Goal (LTG) Pt will increase 6 MWT distance by at least 1000 ft to demonstrate improved strength and activity tolerance in order to get back to her daily 1 mile walks. LTG Duration 6 weeks Assessment Summary Assessment Pt is an 83 y.o. F presenting to OP PT with a L hemiathroplasty due to a L hip frx, following 6 weeks of HH PT. Pt has limitations in L hip and knee flexion ROM, but is comparable to her contralateral side. She is primarily limited by global hip and knee strength needed to get back to prior level of function. Currently, pt is ambulating without an AD but keeps a straight cane with her for difficult community environments. She is able to ambulate for at least 4 minutes without anterior hip pain and her 6MWT distance is 802 m (2631 ft). Pt lives an active lifestyle, and her goal is to ambulate for 1 mile again. Shah balance score was 45/56, which is the cut off for increased fall risk; she experienced the most difficulty during dynamic balance activities. Issued HEP with body weight squats to a chair with a countertop in front for support, seated hip abduction with a band, and seated hip adduction with a pillow. Pt is experiencing deficits in BLE strength, ROM, endurance, gait, balance, and safety. Pt is a good candidate for skilled PT to address the above deficits in order to promote personal safety during mobility, decrease fall risk and repeated fracture risk, education on body mechanics due to osteoporosis, improve activity tolerance, decrease caregiver burden, and improved quality of life. Physical Therapy Plan Frequency and Duration Frequency of Treatment 1x/Week Duration of treatment (weeks) 6 Plan of Care Start Date 10/08/23 Plan of Care End Date 11/19/23 Therapeutic Interventions Therapeutic Interventions Balance Training,Coordination Training,Gait Training,Home Exercise Program,Joint Mobilizations,Manual Therapy, Neuromuscular Re-education, Patient/Caregiver Education, Self-Care/Home Management,Soft Tissue Mobilization, Therapeutic Activities, Therapeutic Exercises Modalities Cold Pack/Ice Massage,Electric Stimulation,Hot Packs, Iontophoresis,Ultrasound Other Therapeutic Interventions Biomechanics training Fall safety training Next Visit Focus/Plan Next Note Type Treatment Note Next Visit Plan Progress hip and knee strengthening, initiate gentle ROM of hip flex/ext/IR/ER. Educate on biomechanics for lifting, carrying due to osteoporosis. Possible scar mobilization
--- NOTE | 2023-10-08 12:33 | PT.OPPOC ---
Physical, Occupational & Speech Therapy At [facility] Current Diagnoses Other abnormalities of gait and mobility (10/08/23) Personal history of (healed) traumatic fracture (10/08/23) Visit Care Team Role Provider Type Jaden Azevedo MD Family Provider Non-Staff Primary Care Provider Specialty: Family Practice Address: [address] [place] [address], [address], [place], [address] Email: Ayana Bal MD Attending Provider Non-Staff Referring Provider Specialty: Medical Address: [address] [place] [address] [address], [place], [address] Email: Plan Of Care PT-OP-T Assessment and Plan Start: 10/08/23 10:44 Freq: Status: Active Protocol: Document 10/08/23 10:45 NM (Rec: 10/08/23 11:57 NM [id number]) Physical Therapy Assessment Rehab Potential Rehabilitation Potential Excellent Evaluation Complexity Number of Personal Factors/Comorbidities 1-2 Number of Body Systems Impaired 1-2 Clinical Presentation at Evaluation Stable Impairments Impairments Activity Tolerance,Balance, Functional Activities, Functional Mobility,Gait,Pain, ROM,Soft Tissue Mobility, Strength Other Impairments Body mechanics Goals Five Impairment ROM Impairment L hip IR and ER ROM limited ( 20 deg and 15 deg, respectively) Short Term Goal (STG) Pt will improve L hip IR and ER by at least 5 deg. STG Duration 3 weeks Counter Intelligence Goal (LTG) Pt will improve L hip IR and ER to be within at least 5 degrees of R hip IR and ER to demonstrate improved hip ROM for gait and stairs. LTG Duration 6 weeks Four Impairment function Impairment body mechanics, lifting due to osteoporosis Short Term Goal (STG) Pt will be educated on and demonstrate understanding of importance of good spinal/hip body mechanics during lifting objects from the ground/lower height or carrying objects due to risk of fracture with osteoporosis. STG Duration 3 weeks Intermediate Goal (LTG) Pt will demonstrate safe body mechanics and maintain balance while picking up an object from the ground or a lower height and while carrying objects during at least 7/10 trials in order to decrease risk of fracture from osteoporosis and show good understanding of risks. Three Impairment strength Impairment Current L hip flexion and abduction strength 4-/5 Short Term Goal (STG) Pt will improve L hip flexion and abduction MMT to at least 4/5 strength with 2/10 pain or less in order to demonstrate improved strength needed for gait and stairs. STG Duration 3 weeks Intermediate Goal (LTG) Pt will improve L hip flexion and abduction MMT to at least 4+/5 strength without pain in order to demonstrate improved strength and activity tolerance. LTG Duration 6 weeks Two Impairment Balance Impairment Shah score 45/56 Short Term Goal (STG) Pt will increase Shah balance score by at least 2 points in order to decrease fall risk and demonstrate improved strength and balance. STG Duration 3 weeks Intermediate Goal (LTG) Pt will increase Shah balance score by at least 4 points ( MCID) in order to decrease fall risk and to demonstrate improved strength and balance. LTG Duration 6 weeks One Impairment function Impairment Current 6MWT = 802 m (2631 ft) Short Term Goal (STG) Pt will increase 6 MWT distance by 500 feet to demonstrate improved strength and activity tolerance. STG Duration 3 weeks Intermediate Goal (LTG) Pt will increase 6 MWT distance by at least 1000 ft to demonstrate improved strength and activity tolerance in order to get back to her daily 1 mile walks. LTG Duration 6 weeks Assessment Summary Assessment Pt is an 83 y.o. F presenting to OP PT with a L hemiathroplasty due to a L hip frx, following 6 weeks of HH PT. Pt has limitations in L hip and knee flexion ROM, but is comparable to her contralateral side. She is primarily limited by global hip and knee strength needed to get back to prior level of function. Currently, pt is ambulating without an AD but keeps a straight cane with her for difficult community environments. She is able to ambulate for at least 4 minutes without anterior hip pain and her 6MWT distance is 802 m (2631 ft). Pt lives an active lifestyle, and her goal is to ambulate for 1 mile again. Shah balance score was 45/56, which is the cut off for increased fall risk; she experienced the most difficulty during dynamic balance activities. Issued HEP with body weight squats to a chair with a countertop in front for support, seated hip abduction with a band, and seated hip adduction with a pillow. Pt is experiencing deficits in BLE strength, ROM, endurance, gait, balance, and safety. Pt is a good candidate for skilled PT to address the above deficits in order to promote personal safety during mobility, decrease fall risk and repeated fracture risk, education on body mechanics due to osteoporosis, improve activity tolerance, decrease caregiver burden, and improved quality of life. Physical Therapy Plan Frequency and Duration Frequency of Treatment 1x/Week Duration of treatment (weeks) 6 Plan of Care Start Date 10/08/23 Plan of Care End Date 11/19/23 Therapeutic Interventions Therapeutic Interventions Balance Training,Coordination Training,Gait Training,Home Exercise Program,Joint Mobilizations,Manual Therapy, Neuromuscular Re-education, Patient/Caregiver Education, Self-Care/Home Management,Soft Tissue Mobilization, Therapeutic Activities, Therapeutic Exercises Modalities Cold Pack/Ice Massage,Electric Stimulation,Hot Packs, Iontophoresis,Ultrasound Other Therapeutic Interventions Biomechanics training Fall safety training Next Visit Focus/Plan Next Note Type Treatment Note Next Visit Plan Progress hip and knee strengthening, initiate gentle ROM of hip flex/ext/IR/ER. Educate on biomechanics for lifting, carrying due to osteoporosis. Possible scar mobilization Plan of Care Dates Plan of Care Start Date 10/08/23 Plan of Care End Date 11/19/23 Electronically Signed by: Safia Valdovinos, PT 10/08/23 2264 If you are in agreement with this Plan of Care, please return a signed and dated copy. I have reviewed this Plan of Care and certify that the skilled therapy services above are required to meet the patient?s needs. Physician Signature Date Printed Name and Credentials Clinical Instructor Signature Printed Name and Credentials
--- NOTE | 2023-10-15 11:12 | PT.OTN ---
Current Diagnoses Other abnormalities of gait and mobility (10/15/23) Personal history of (healed) traumatic fracture (10/15/23) Physical Therapy Treatment Note PT-OP-A Visit Information Start: 10/08/23 10:44 Freq: Status: Active Protocol: Document 10/15/23 09:50 NM (Rec: 10/15/23 11:08 NM [id number]) Out-Patient Physical Therapy Visit Information Visit Information Visit Type Treatment Note Visit Start Time 09:45 Visit Stop Time 10:35 Total Visit Minutes 50 Visit Number 2 Evaluation Information Evaluation Date 10/08/23 PT-OP-B Current Condition Start: 10/08/23 10:44 Freq: Status: Active Protocol: Document 10/08/23 10:45 NM (Rec: 10/08/23 11:57 NM [id number]) Current Condition History of Current Condition Onset Date 08/10/23 Current Complaints weakness, L hip discomfort/ pain, difficulty walking History of Current Condition Pt presents s/p L hip frx following a fall out of a chair. Pt reports that she was sitting in her recliner when she attempted to get up without waking her , but lost her balance and fell onto her L hip. She underwent a L hemiarthroplasty on . Pt received home health PT for several weeks and was compliant with posterior hip precautions. At this time, pt does not have any hip precautions. Currently, she is able to ambulate without an AD, but she has a cane that she keeps in the car when she travels to environments with unknown terrain. She has 1 step to enter/exit home. Prior to this fall, pt reports that she has not had any falls in several years. She was recently diagnosed with osteoporosis. 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 Walks 1 mi/day PT-OP-C Subjective Start: 10/08/23 12:22 Freq: Status: Active Protocol: Document 10/15/23 09:50 NM (Rec: 10/15/23 11:08 NM [id number]) OP-PT Subjective Patient Comments Patient Comments Pt reports that she is doing well and has some questions about her exercises. She walked 1 mi the other day during shopping which caused her hip to ache; she is able to walk up to 1/2 mi (to her mailbox) daily without any discomfort or fatigue. PT-OP-D Balance Start: 10/08/23 10:44 Freq: Status: Active Protocol: Document 10/08/23 10:45 NM (Rec: 10/08/23 11:57 NM [id number]) OP-PT Balance Assessment Sitting Balance Static Sitting Balance Ability Normal Dynamic Sitting Balance Ability Normal Standing Balance Static Standing Balance Ability Good Dynamic Standing Balance Ability Good Balance Tests Shah Balance Test Shah Balance Test Score 45/56 Shah Impairment Rating 1 to 19% Impaired (Score 45-55 ) Marcano Fall Scale Copyright Permission PT-OP-E Functional Tests Start: 10/08/23 10:44 Freq: Status: Active Protocol: Document 10/08/23 10:45 NM (Rec: 10/08/23 11:57 NM [id number]) Functional Tests 6 Minute Walk Test Distance 802 m Device Used none Comments Antalgic; Ind;gait speed decreased with time. Dev ant hip pain >4 min Five Times Sit to Stand Test Score 12 sec Comments Mild sway, no LOB with repetition, no hands PT-OP-G Mobility & Gait Start: 10/08/23 10:44 Freq: Status: Active Protocol: Document 10/08/23 10:45 NM (Rec: 10/08/23 11:57 NM [id number]) OP Gait Assessment Gait Gait Assistance Required: Independent Able to Maintain Weight Bearing Status Yes During Gait Assistive Devices Assistive Device None,Straight Cane Gait Deviations General Gait Pattern Antalgic,Decreased Stride Length,Flexed Trunk Factors Limiting Gait Function Factors Limiting Gait Function Decreased Activity Tolerance Stair Climbing Evaluation Evaluation Level of Assist On Stairs Standby Assistance,Contact Guard Assistance Devices Stair Climbing Assistive Devices None Technique/Endurance Stair Climbing Direction Ascend and Descend Stair Climbing Technique Step to Step Number of Steps Climbed 4 Stair Climbing Set # Repetitions (reps) 1 Comments Stair Climbing Comments Able to ascend without UE use and SBA. Descends with 1 TOOL HARDENER and CGA for steadying PT-OP-J Posture/Palpation/Skin Start: 10/08/23 10:44 Freq: Status: Active Protocol: Document 10/08/23 10:45 NM (Rec: 10/08/23 11:57 NM [id number]) Posture Evaluation Position Standing Evaluation View Lateral T-Spine Posture Increased Kyphosis L-Spine Posture Increased Lordosis Shoulder Posture (R) Forward,(L) Elevated Pelvis Posture Anteriorly Tilted Hip Posture (L) Externally Rotated Knee Posture (L) Genu Valgus,(R) Genu Valgus Skin Assessment Incisional Assessment Incision Appearance/Comments Intact. Would benefit from scar mobilization to prevent adhesions Other Assessments Skin Assessment Comments Pt has some mild swelling in lateral ankle but comparable size to RLE PT-OP-K Range of Motion Start: 10/08/23 10:44 Freq: Status: Active Protocol: Document 10/08/23 10:45 NM (Rec: 10/08/23 11:57 NM [id number]) Hip Goniometric Range of Motion Hip Right Hip ROM WFL No Testing Position Supine Flexion w/Knee Flexed 100 Extension 10 Abduction 14 Internal Rotation 34 External Rotation 20 Left Hip ROM WFL No Testing Position Supine Flexion w/Knee Flexed 100 Extension 5 Abduction 14 Internal Rotation 20 External Rotation 15 Comments No pain with any active movement Hip ROM Limitations Hip ROM Limitations Soft Tissue Tightness,Muscle Weakness,Swelling Knee Goniometric Range of Motion Knee Right Knee ROM WFL Yes Patient Position Supine Flexion Active (degrees) 146 Extension Active (degrees) 5 Left Knee ROM WFL Yes Patient Position Supine Flexion Active (degrees) 130 Extension Active (degrees) 5 Knee ROM Limitations Knee ROM Limitations Soft Tissue Tightness Comments some limitation in L knee due to L hip ROM limitations PT-OP-M Strength Start: 10/08/23 10:44 Freq: Status: Active Protocol: Document 10/08/23 10:45 NM (Rec: 10/08/23 11:57 NM [id number]) Hip Strength Hip Manual Muscle Testing Right Flexion (L2) 4 Good Extension (S1) 3 Fair Abduction 4- Good- Adduction 4 Good External Rotation 4+ Good+ Internal Rotation 4+ Good+ Comments Only able to extend through ROM during hip ext, unable to withstand any resistance. Left Flexion (L2) 4- Good- Extension (S1) 3 Fair Abduction 4- Good- Adduction 4- Good- External Rotation 4- Good- Internal Rotation 4- Good- Comments Min pain with hip flex. Only able to extend through ROM during hip ext, unable to withstand any resistance. Difficulty with straight leg raise from table without ant hip pain, only able to lift 4 . Knee Strength Knee Manual Muscle Testing Right Flexion (S2) 4+ Good+ Extension (L3) 4+ Good+ Left Flexion (S2) 4- Good- Extension (L3) 4- Good- Comments No pain PT-OP-Q Treatments Start: 10/08/23 10:44 Freq: Status: Active Protocol: Document 10/15/23 09:50 NM (Rec: 10/15/23 11:08 NM [id number]) Therapeutic Exercises Standing Exercises TKE Side bilateral Equipment Used gold ball behind knee Reps/Minutes 2x15 Comments for quad strengthening, TKE during STS Squats Standing Exercise Name Modified to a low sit to stand for safety and ease Side bilateral Resistance body weight Equipment Used low table behind (18) Reps/Minutes 2x15 Comments Quad/glute strengthening, arms in front during up/down Other Exercises Lateral Step up Other Exercise Name UE support as open palm on rail only for stability Side left Equipment Used 6 stairs, R hand rail for stability Reps/Minutes 2x10 Comments demos trendelenburg; cues for level hips, fwd toes/hips Fwd Step up Other Exercise Name UE support as open palm on rail only for stability Side left Equipment Used 6 stairs, L handrail for stability Reps/Minutes 2x10 Comments demos trendelenburg, decreased with cues to keep hips level Gait Training Gait Activity Normal Gait Device Used none Level of Assistance CGA-min A Surface stable (carpet, tile) Distance/Duration 200 ft, 50 ft x2 Treatment Focus Heel > toe pattern, equal step length, limb advancement, balance Comments Presents to clinic with short step length, flexed trunk posture, limited LLE advancement and foot clearance , strikes with midfoot normally. Initiated training with heel>toe pattern with emphasis on upright posture, toe clearance, and hip/knee flex to advance limb. Pt feels unstable during gait, demos mod sway during swing and is unable to look up from ground. Attempts to step with knees extended to create heel strike . Will reattempt with cane next and then progress as tolerated. PT-OP-T Assessment and Plan Start: 10/08/23 10:44 Freq: Status: Active Protocol: Document 10/15/23 09:50 NM (Rec: 10/15/23 11:08 NM [id number]) Physical Therapy Assessment Rehab Potential Rehabilitation Potential Good Impairments Impairments Activity Tolerance,Balance, Functional Activities, Functional Mobility,Gait,Pain, ROM,Soft Tissue Mobility, Strength Other Impairments Body mechanics Goals Five Impairment ROM Impairment L hip IR and ER ROM limited ( 20 deg and 15 deg, respectively) Short Term Goal (STG) Pt will improve L hip IR and ER by at least 5 deg. STG Duration 3 weeks Or Scrub Tech Goal (LTG) Pt will improve L hip IR and ER to be within at least 5 degrees of R hip IR and ER to demonstrate improved hip ROM for gait and stairs. LTG Duration 6 weeks Four Impairment function Impairment body mechanics, lifting due to osteoporosis Short Term Goal (STG) Pt will be educated on and demonstrate understanding of importance of good spinal/hip body mechanics during lifting objects from the ground/lower height or carrying objects due to risk of fracture with osteoporosis. STG Duration 3 weeks Detention Goal (LTG) Pt will demonstrate safe body mechanics and maintain balance while picking up an object from the ground or a lower height and while carrying objects during at least 7/10 trials in order to decrease risk of fracture from osteoporosis and show good understanding of risks. LTG Duration 6 weeks Three Impairment strength Impairment Current L hip flexion and abduction strength 4-/5 Short Term Goal (STG) Pt will improve L hip flexion and abduction MMT to at least 4/5 strength with 2/10 pain or less in order to demonstrate improved strength needed for gait and stairs. STG Duration 3 weeks Detention Goal (LTG) Pt will improve L hip flexion and abduction MMT to at least 4+/5 strength without pain in order to demonstrate improved strength and activity tolerance. LTG Duration 6 weeks Two Impairment Balance Impairment Shah score 45/56 Short Term Goal (STG) Pt will increase Shah balance score by at least 2 points in order to decrease fall risk and demonstrate improved strength and balance. STG Duration 3 weeks Detention Goal (LTG) Pt will increase Shah balance score by at least 4 points ( MCID) in order to decrease fall risk and to demonstrate improved strength and balance. LTG Duration 6 weeks One Impairment function Impairment Current 6MWT = 802 m (2631 ft) Short Term Goal (STG) Pt will increase 6 MWT distance by 500 feet to demonstrate improved strength and activity tolerance. STG Duration 3 weeks Or Scrub Tech Goal (LTG) Pt will increase 6 MWT distance by at least 1000 ft to demonstrate improved strength and activity tolerance in order to get back to her daily 1 mile walks. LTG Duration 6 weeks Assessment Summary Assessment Pt tolerated treatment well. Treatment focus on quad/glute strengthening with activities that can be performed easily at home as pt has limited PT sessions. Pt able to perform STS with fwd reach better than mini-squats for more quad activation. TKE added to promote knee extension for stability during standing and gait. Initiated fwd and lateral 6 step ups for strengthening glutes; demos mild trendelenburg that improves with cueing. Worked on normal gait pattern today to promote heel strike, equal step length, improved toe clearance and limb advancement . Will continue to address next session as pt demos difficulty with performing coordinated ambulation without compensations. Walking program discussed today with instructions for pt to begin walking her normal 1/2 mi to mail box and gradually increase distance to tolerance daily. Updated HEP to include more active BLE strengthening : STS, TKE, fwd and lateral step ups, and a walking program. Pt would benefit from skilled PT to address impairments in BLE strength, LLE ROM, balance, gait, and activity tolerance. Physical Therapy Plan Frequency and Duration Frequency of Treatment 1x/Week Duration of treatment (weeks) 6 Plan of Care Start Date 10/08/23 Plan of Care End Date 11/19/23 Therapeutic Interventions Therapeutic Interventions Balance Training,Coordination Training,Gait Training,Home Exercise Program,Joint Mobilizations,Manual Therapy, Neuromuscular Re-education, Patient/Caregiver Education, Self-Care/Home Management,Soft Tissue Mobilization, Therapeutic Activities, Therapeutic Exercises Modalities Cold Pack/Ice Massage,Electric Stimulation,Hot Packs, Iontophoresis,Ultrasound Other Therapeutic Interventions Biomechanics training Fall safety training Next Visit Focus/Plan Next Note Type Treatment Note Next Visit Plan Focus on gait and balance today, progress strengthening exercises if time. May need to extend time between visits due to limited number, so pt can maximize sessions - discuss next time
--- NOTE | 2023-10-22 14:18 | PT.OTN ---
Current Diagnoses Other abnormalities of gait and mobility (10/22/23) Personal history of (healed) traumatic fracture (10/22/23) Physical Therapy Treatment Note PT-OP-A Visit Information Start: 10/08/23 10:44 Freq: Status: Active Protocol: Document 10/22/23 13:09 NM (Rec: 10/22/23 14:18 NM [id number]) Out-Patient Physical Therapy Visit Information Visit Information Visit Type Treatment Note Visit Start Time 13:00 Visit Stop Time 13:45 Total Visit Minutes 45 Visit Number 3 Evaluation Information Evaluation Date 10/08/23 PT-OP-B Current Condition Start: 10/08/23 10:44 Freq: Status: Active Protocol: Document 10/08/23 10:45 NM (Rec: 10/08/23 11:57 NM [id number]) Current Condition History of Current Condition Onset Date 08/10/23 Current Complaints weakness, L hip discomfort/ pain, difficulty walking History of Current Condition Pt presents s/p L hip frx following a fall out of a chair. Pt reports that she was sitting in her recliner when she attempted to get up without waking her , but lost her balance and fell onto her L hip. She underwent a L hemiarthroplasty on . Pt received home health PT for several weeks and was compliant with posterior hip precautions. At this time, pt does not have any hip precautions. Currently, she is able to ambulate without an AD, but she has a cane that she keeps in the car when she travels to environments with unknown terrain. She has 1 step to enter/exit home. Prior to this fall, pt reports that she has not had any falls in several years. She was recently diagnosed with osteoporosis. 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 Walks 1 mi/day PT-OP-C Subjective Start: 10/08/23 12:22 Freq: Status: Active Protocol: Document 10/22/23 13:09 NM (Rec: 10/22/23 14:18 NM [id number]) OP-PT Subjective Patient Comments Patient Comments Pt reports that she is doing well with no hip pain and improved tolerance for walking . She is now walking up to 1 mile, usually during errands. She states that she can tell her endurance is limited because she has trouble completing some exercises (sit to stand) due to fatigue. PT-OP-D Balance Start: 10/08/23 10:44 Freq: Status: Active Protocol: Document 10/08/23 10:45 NM (Rec: 10/08/23 11:57 NM [id number]) OP-PT Balance Assessment Sitting Balance Static Sitting Balance Ability Normal Dynamic Sitting Balance Ability Normal Standing Balance Static Standing Balance Ability Good Dynamic Standing Balance Ability Good Balance Tests Shah Balance Test Shah Balance Test Score 45/56 Shah Impairment Rating 1 to 19% Impaired (Score 45-55 ) Marcano Fall Scale Copyright Permission PT-OP-E Functional Tests Start: 10/08/23 10:44 Freq: Status: Active Protocol: Document 10/08/23 10:45 NM (Rec: 10/08/23 11:57 NM [id number]) Functional Tests 6 Minute Walk Test Distance 802 m Device Used none Comments Antalgic; Ind;gait speed decreased with time. Dev ant hip pain >4 min Five Times Sit to Stand Test Score 12 sec Comments Mild sway, no LOB with repetition, no hands PT-OP-G Mobility & Gait Start: 10/08/23 10:44 Freq: Status: Active Protocol: Document 10/08/23 10:45 NM (Rec: 10/08/23 11:57 NM [id number]) OP Gait Assessment Gait Gait Assistance Required: Independent Able to Maintain Weight Bearing Status Yes During Gait Assistive Devices Assistive Device None,Straight Cane Gait Deviations General Gait Pattern Antalgic,Decreased Stride Length,Flexed Trunk Factors Limiting Gait Function Factors Limiting Gait Function Decreased Activity Tolerance Stair Climbing Evaluation Evaluation Level of Assist On Stairs Standby Assistance,Contact Guard Assistance Devices Stair Climbing Assistive Devices None Technique/Endurance Stair Climbing Direction Ascend and Descend Stair Climbing Technique Step to Step Number of Steps Climbed 4 Stair Climbing Set # Repetitions (reps) 1 Comments Stair Climbing Comments Able to ascend without UE use and SBA. Descends with 1 [employer] and CGA for steadying PT-OP-J Posture/Palpation/Skin Start: 10/08/23 10:44 Freq: Status: Active Protocol: Document 10/08/23 10:45 NM (Rec: 10/08/23 11:57 NM [id number]) Posture Evaluation Position Standing Evaluation View Lateral T-Spine Posture Increased Kyphosis L-Spine Posture Increased Lordosis Shoulder Posture (R) Forward,(L) Elevated Pelvis Posture Anteriorly Tilted Hip Posture (L) Externally Rotated Knee Posture (L) Genu Valgus,(R) Genu Valgus Skin Assessment Incisional Assessment Incision Appearance/Comments Intact. Would benefit from scar mobilization to prevent adhesions Other Assessments Skin Assessment Comments Pt has some mild swelling in lateral ankle but comparable size to RLE PT-OP-K Range of Motion Start: 10/08/23 10:44 Freq: Status: Active Protocol: Document 10/08/23 10:45 NM (Rec: 10/08/23 11:57 NM [id number]) Hip Goniometric Range of Motion Hip Right Hip ROM WFL No Testing Position Supine Flexion w/Knee Flexed 100 Extension 10 Abduction 14 Internal Rotation 34 External Rotation 20 Left Hip ROM WFL No Testing Position Supine Flexion w/Knee Flexed 100 Extension 5 Abduction 14 Internal Rotation 20 External Rotation 15 Comments No pain with any active movement Hip ROM Limitations Hip ROM Limitations Soft Tissue Tightness,Muscle Weakness,Swelling Knee Goniometric Range of Motion Knee Right Knee ROM WFL Yes Patient Position Supine Flexion Active (degrees) 146 Extension Active (degrees) 5 Left Knee ROM WFL Yes Patient Position Supine Flexion Active (degrees) 130 Extension Active (degrees) 5 Knee ROM Limitations Knee ROM Limitations Soft Tissue Tightness Comments some limitation in L knee due to L hip ROM limitations PT-OP-M Strength Start: 10/08/23 10:44 Freq: Status: Active Protocol: Document 10/08/23 10:45 NM (Rec: 10/08/23 11:57 NM [id number]) Hip Strength Hip Manual Muscle Testing Right Flexion (L2) 4 Good Extension (S1) 3 Fair Abduction 4- Good- Adduction 4 Good External Rotation 4+ Good+ Internal Rotation 4+ Good+ Comments Only able to extend through ROM during hip ext, unable to withstand any resistance. Left Flexion (L2) 4- Good- Extension (S1) 3 Fair Abduction 4- Good- Adduction 4- Good- External Rotation 4- Good- Internal Rotation 4- Good- Comments Min pain with hip flex. Only able to extend through ROM during hip ext, unable to withstand any resistance. Difficulty with straight leg raise from table without ant hip pain, only able to lift 4 . Knee Strength Knee Manual Muscle Testing Right Flexion (S2) 4+ Good+ Extension (L3) 4+ Good+ Left Flexion (S2) 4- Good- Extension (L3) 4- Good- Comments No pain PT-OP-Q Treatments Start: 10/08/23 10:44 Freq: Status: Active Protocol: Document 10/22/23 13:09 NM (Rec: 10/22/23 14:18 NM [id number]) Cardio Equipment Recumbent Elliptical (Biodex) Duration (Minutes) 4 Resistance 5 Other LLE strengthening, no UE use Therapeutic Exercises Standing Exercises Squats Standing Exercise Name Low sit<>stand Side bilateral Resistance body weight Equipment Used arms in front reaching for fwd weight shift Reps/Minutes x10 Comments quad/glute strengthening; review of HEP; poor fwd wt shift Other Exercises Lateral Step up Other Exercise Name 1 [employer] during descent for stability, LLE leading Side left Equipment Used 6 stairs, L rails Reps/Minutes 3 reps ascent/descent (x4 steps) Comments demos trendelenberg but improved since last time. No LOB Fwd Step up Other Exercise Name 1 [employer] during descent for stability, LLE leading Side left Equipment Used 6 stairs, R hand rail Reps/Minutes 3 reps ascent/descent (x4 steps) Comments cues for neutral B hip rotation to prevent compensation with TFL Gait Training Gait Activity Uneven surface Device Used none Level of Assistance close SBA Surface grass, gravel, sidewalk, hills Distance/Duration 500 ft Treatment Focus Normal gait mechanics, stability, uneven surface mgmt Comments Pt demos improved gait mechanics, able to ambulate with heel>toe and fair foot clearance on uneven surfaces. 2 instances of LOB but pt able to self correct without falling or using UE to stabilize. Normal Gait Device Used none Level of Assistance close SBA, occasional CGA to stabilize if LOB Surface stable Distance/Duration 400 ft Treatment Focus Heel > toe pattern, equal step length, limb advancement, balance Comments Pt improved since last session . Demos improved heel>toe and foot clearance. Still has decreased step length on RLE compared to LLE but improved with cueing. Pt looks down when ambulating and has flexed posture; with cueing, she is able to look up and perform visual scanning (e.g. reading time) without LOB. Neuro Re-Education Treatment Balance Activities Single Leg Stance Details performed bilaterally Surface stable Equipment // bars Reps/Duration 2x30 ea Comments Pt is SBA with 2 fingers for balance on ea limb. Demos mod trendelenberg when standing on LLE. No instances of LOB. Added to HEP Hurdles Details 1. LLE lead, 2. RLE lead, Obstacle course with 3. LLe lead, 4. RLE lead Surface stable ground Equipment 6 hurdles Reps/Duration 3x10 ft ea direction Comments Pt is CGA> SBA when stepping over hurdles. Initially required cues when approaching obstacle and to slowly step over juan rather than rushing. Pt had 2 instances of LOB requiring PT to help stabilize, but pt able to self -correct at other times. Pt demos improved single limb balance on LLE than RLE during stepping activities. PT-OP-T Assessment and Plan Start: 10/08/23 10:44 Freq: Status: Active Protocol: Document 10/22/23 13:09 NM (Rec: 10/22/23 14:18 NM [id number]) Physical Therapy Assessment Rehab Potential Rehabilitation Potential Good Impairments Impairments Activity Tolerance,Balance, Functional Activities, Functional Mobility,Gait,Pain, ROM,Soft Tissue Mobility, Strength Other Impairments Body mechanics Goals Five Impairment ROM Impairment L hip IR and ER ROM limited ( 20 deg and 15 deg, respectively) Short Term Goal (STG) Pt will improve L hip IR and ER by at least 5 deg. STG Duration 3 weeks Senior Case Manager Goal (LTG) Pt will improve L hip IR and ER to be within at least 5 degrees of R hip IR and ER to demonstrate improved hip ROM for gait and stairs. LTG Duration 6 weeks Four Impairment function Impairment body mechanics, lifting due to osteoporosis Short Term Goal (STG) Pt will be educated on and demonstrate understanding of importance of good spinal/hip body mechanics during lifting objects from the ground/lower height or carrying objects due to risk of fracture with osteoporosis. STG Duration 3 weeks Usp Goal (LTG) Pt will demonstrate safe body mechanics and maintain balance while picking up an object from the ground or a lower height and while carrying objects during at least 7/10 trials in order to decrease risk of fracture from osteoporosis and show good understanding of risks. LTG Duration 6 weeks Three Impairment strength Impairment Current L hip flexion and abduction strength 4-/5 Short Term Goal (STG) Pt will improve L hip flexion and abduction MMT to at least 4/5 strength with 2/10 pain or less in order to demonstrate improved strength needed for gait and stairs. STG Duration 3 weeks Senior Case Manager Goal (LTG) Pt will improve L hip flexion and abduction MMT to at least 4+/5 strength without pain in order to demonstrate improved strength and activity tolerance. LTG Duration 6 weeks Two Impairment Balance Impairment Shah score 45/56 Short Term Goal (STG) Pt will increase Shah balance score by at least 2 points in order to decrease fall risk and demonstrate improved strength and balance. STG Duration 3 weeks Senior Case Manager Goal (LTG) Pt will increase Shah balance score by at least 4 points ( MCID) in order to decrease fall risk and to demonstrate improved strength and balance. LTG Duration 6 weeks One Impairment function Impairment Current 6MWT = 802 m (2631 ft) Short Term Goal (STG) Pt will increase 6 MWT distance by 500 feet to demonstrate improved strength and activity tolerance. STG Duration 3 weeks Usp Goal (LTG) Pt will increase 6 MWT distance by at least 1000 ft to demonstrate improved strength and activity tolerance in order to get back to her daily 1 mile walks. LTG Duration 6 weeks Assessment Summary Assessment Pt tolerated session well. Tmt focus today on gait and balance training. Pt demos improved gait mechanics with more normal gait and improved foot clearance/even step length. She continues to have a L lean during L stance and flexed posturing during gait. Pt able to ambulate on even and on a variety of uneven surfaces without an AD and able to self-correct without UE use if LOB. Balance training today using hurdles and no AD to promote single leg stability and improve proprioception. With consistent cueing, pt able to perform SBA with fair balance while stepping over hurdles or manuevering obstacle course. Pt demos good balance with 2 finger support during SLS. Pt would benefit from skilled PT to address impairments in gait , balance, BLE strengthening, and ROM in order to return to PLOF and to decrease fall risk . Physical Therapy Plan Frequency and Duration Frequency of Treatment 1x/Week Duration of treatment (weeks) 6 Plan of Care Start Date 10/08/23 Plan of Care End Date 11/19/23 Therapeutic Interventions Therapeutic Interventions Balance Training,Coordination Training,Gait Training,Home Exercise Program,Joint Mobilizations,Manual Therapy, Neuromuscular Re-education, Patient/Caregiver Education, Self-Care/Home Management,Soft Tissue Mobilization, Therapeutic Activities, Therapeutic Exercises Modalities Cold Pack/Ice Massage,Electric Stimulation,Hot Packs, Iontophoresis,Ultrasound Other Therapeutic Interventions Biomechanics training Fall safety training Next Visit Focus/Plan Next Note Type Treatment Note Next Visit Plan Balance and BLE strengthening (hip abd especially). Possible PN
--- NOTE | 2023-10-29 12:14 | PT.OTN ---
Current Diagnoses Other abnormalities of gait and mobility (10/29/23) Personal history of (healed) traumatic fracture (10/29/23) Physical Therapy Treatment Note PT-OP-A Visit Information Start: 10/08/23 10:44 Freq: Status: Active Protocol: Document 10/29/23 09:53 NM (Rec: 10/29/23 10:32 NM [id number]) Out-Patient Physical Therapy Visit Information Visit Information Visit Type Treatment Note Visit Start Time 09:47 Visit Stop Time 10:30 Total Visit Minutes 43 Visit Number 4 Evaluation Information Evaluation Date 10/08/23 PT-OP-B Current Condition Start: 10/08/23 10:44 Freq: Status: Active Protocol: Document 10/08/23 10:45 NM (Rec: 10/08/23 11:57 NM [id number]) Current Condition History of Current Condition Onset Date 08/10/23 Current Complaints weakness, L hip discomfort/ pain, difficulty walking History of Current Condition Pt presents s/p L hip frx following a fall out of a chair. Pt reports that she was sitting in her recliner when she attempted to get up without waking her , but lost her balance and fell onto her L hip. She underwent a L hemiarthroplasty on . Pt received home health PT for several weeks and was compliant with posterior hip precautions. At this time, pt does not have any hip precautions. Currently, she is able to ambulate without an AD, but she has a cane that she keeps in the car when she travels to environments with unknown terrain. She has 1 step to enter/exit home. Prior to this fall, pt reports that she has not had any falls in several years. She was recently diagnosed with osteoporosis. Prior Treatments and Tests PT Treatment Goals Patient/Caregiver Goals Walk at least 1 mi. 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 Walks 1 mi/day PT-OP-C Subjective Start: 10/08/23 12:22 Freq: Status: Active Protocol: Document 10/29/23 09:53 NM (Rec: 10/29/23 10:32 NM [id number]) OP-PT Subjective Patient Comments Patient Comments Pt reports that she has no hip pain or stiffness. She has been compliant with her exercises 2x/day. She has also been walking up to a mile regularly; she does report some anterior hip discomfort when close to 1 mile. Patient Reported Progress Improving PT-OP-D Balance Start: 10/08/23 10:44 Freq: Status: Active Protocol: Document 10/08/23 10:45 NM (Rec: 10/08/23 11:57 NM [id number]) OP-PT Balance Assessment Sitting Balance Static Sitting Balance Ability Normal Dynamic Sitting Balance Ability Normal Standing Balance Static Standing Balance Ability Good Dynamic Standing Balance Ability Good Balance Tests Shah Balance Test Shah Balance Test Score 45/56 Shah Impairment Rating 1 to 19% Impaired (Score 45-55 ) Marcano Fall Scale Copyright Permission PT-OP-E Functional Tests Start: 10/08/23 10:44 Freq: Status: Active Protocol: Document 10/08/23 10:45 NM (Rec: 10/08/23 11:57 NM [id number]) Functional Tests 6 Minute Walk Test Distance 802 m Device Used none Comments Antalgic; Ind;gait speed decreased with time. Dev ant hip pain >4 min Five Times Sit to Stand Test Score 12 sec Comments Mild sway, no LOB with repetition, no hands PT-OP-G Mobility & Gait Start: 10/08/23 10:44 Freq: Status: Active Protocol: Document 10/08/23 10:45 NM (Rec: 10/08/23 11:57 NM [id number]) OP Gait Assessment Gait Gait Assistance Required: Independent Able to Maintain Weight Bearing Status Yes During Gait Assistive Devices Assistive Device None,Straight Cane Gait Deviations General Gait Pattern Antalgic,Decreased Stride Length,Flexed Trunk Factors Limiting Gait Function Factors Limiting Gait Function Decreased Activity Tolerance Stair Climbing Evaluation Evaluation Level of Assist On Stairs Standby Assistance,Contact Guard Assistance Devices Stair Climbing Assistive Devices None Technique/Endurance Stair Climbing Direction Ascend and Descend Stair Climbing Technique Step to Step Number of Steps Climbed 4 Stair Climbing Set # Repetitions (reps) 1 Comments Stair Climbing Comments Able to ascend without UE use and SBA. Descends with 1 PAINT LINE SUPERVISOR and CGA for steadying PT-OP-J Posture/Palpation/Skin Start: 10/08/23 10:44 Freq: Status: Active Protocol: Document 10/08/23 10:45 NM (Rec: 10/08/23 11:57 NM [id number]) Posture Evaluation Position Standing Evaluation View Lateral T-Spine Posture Increased Kyphosis L-Spine Posture Increased Lordosis Shoulder Posture (R) Forward,(L) Elevated Pelvis Posture Anteriorly Tilted Hip Posture (L) Externally Rotated Knee Posture (L) Genu Valgus,(R) Genu Valgus Skin Assessment Incisional Assessment Incision Appearance/Comments Intact. Would benefit from scar mobilization to prevent adhesions Other Assessments Skin Assessment Comments Pt has some mild swelling in lateral ankle but comparable size to RLE PT-OP-K Range of Motion Start: 10/08/23 10:44 Freq: Status: Active Protocol: Document 10/08/23 10:45 NM (Rec: 10/08/23 11:57 NM [id number]) Hip Goniometric Range of Motion Hip Right Hip ROM WFL No Testing Position Supine Flexion w/Knee Flexed 100 Extension 10 Abduction 14 Internal Rotation 34 External Rotation 20 Left Hip ROM WFL No Testing Position Supine Flexion w/Knee Flexed 100 Extension 5 Abduction 14 Internal Rotation 20 External Rotation 15 Comments No pain with any active movement Hip ROM Limitations Hip ROM Limitations Soft Tissue Tightness,Muscle Weakness,Swelling Knee Goniometric Range of Motion Knee Right Knee ROM WFL Yes Patient Position Supine Flexion Active (degrees) 146 Extension Active (degrees) 5 Left Knee ROM WFL Yes Patient Position Supine Flexion Active (degrees) 130 Extension Active (degrees) 5 Knee ROM Limitations Knee ROM Limitations Soft Tissue Tightness Comments some limitation in L knee due to L hip ROM limitations PT-OP-M Strength Start: 10/08/23 10:44 Freq: Status: Active Protocol: Document 10/08/23 10:45 NM (Rec: 10/08/23 11:57 NM [id number]) Hip Strength Hip Manual Muscle Testing Right Flexion (L2) 4 Good Extension (S1) 3 Fair Abduction 4- Good- Adduction 4 Good External Rotation 4+ Good+ Internal Rotation 4+ Good+ Comments Only able to extend through ROM during hip ext, unable to withstand any resistance. Left Flexion (L2) 4- Good- Extension (S1) 3 Fair Abduction 4- Good- Adduction 4- Good- External Rotation 4- Good- Internal Rotation 4- Good- Comments Min pain with hip flex. Only able to extend through ROM during hip ext, unable to withstand any resistance. Difficulty with straight leg raise from table without ant hip pain, only able to lift 4 . Knee Strength Knee Manual Muscle Testing Right Flexion (S2) 4+ Good+ Extension (L3) 4+ Good+ Left Flexion (S2) 4- Good- Extension (L3) 4- Good- Comments No pain PT-OP-Q Treatments Start: 10/08/23 10:44 Freq: Status: Active Protocol: Document 10/29/23 09:53 NM (Rec: 10/29/23 10:32 NM [id number]) Cardio Equipment Recumbent Elliptical (Biodex) Duration (Minutes) 7 Resistance 3 Other BLe only Gym Equipment Shuttle Recovery Leg press Details 1. B squat, 2. U squat (LLE) Resistance 1. 50#, 2. 25# Shuttle Recovery Platform Stable Reps/Time 1. 2x12, 2. 2x8 Therapeutic Exercises Supine Exercises Figure 4 Supine Exercise Name R leg is straight; to increase hip ER ROM Side left Reps/Minutes 2x30 Prone Exercises prone IR Prone Exercise Name *issued in sitting for HEP Side bilateral Resistance orange tb Equipment Used tb around ankles Reps/Minutes 2x10 Prone Hip IR stretch Prone Exercise Name to increase hip IR ROM Reps/Minutes 2x30 Comments let legs falls Sitting Exercises Hip IR Sitting Exercise Name ball between legs, band around ankles Side bilateral Reps/Minutes 1x10 Comments for HEP Standing Exercises Walkouts Standing Exercise Name resistance around hips Side bilateral Resistance green resistance band on wall Reps/Minutes x3 (8 ft ea direction) Comments fwd, retro, lateral stepping; CGA for balance prn PT-OP-T Assessment and Plan Start: 10/08/23 10:44 Freq: Status: Active Protocol: Document 10/29/23 09:53 NM (Rec: 10/29/23 10:32 NM [id number]) Physical Therapy Assessment Rehab Potential Rehabilitation Potential Good Evaluation Complexity Number of Personal Factors/Comorbidities 1-2 Number of Body Systems Impaired 1-2 Clinical Presentation at Evaluation Stable Impairments Impairments Activity Tolerance,Balance, Functional Activities, Functional Mobility,Gait,Pain, ROM,Soft Tissue Mobility, Strength Other Impairments Body mechanics Goals Five Impairment ROM Impairment L hip IR and ER ROM limited ( 20 deg and 15 deg, respectively) Short Term Goal (STG) Pt will improve L hip IR and ER by at least 5 deg. STG Duration 3 weeks Fpc Goal (LTG) Pt will improve L hip IR and ER to be within at least 5 degrees of R hip IR and ER to demonstrate improved hip ROM for gait and stairs. LTG Duration 6 weeks Four Impairment function Impairment body mechanics, lifting due to osteoporosis Short Term Goal (STG) Pt will be educated on and demonstrate understanding of importance of good spinal/hip body mechanics during lifting objects from the ground/lower height or carrying objects due to risk of fracture with osteoporosis. STG Duration 3 weeks Ldr Rn Goal (LTG) Pt will demonstrate safe body mechanics and maintain balance while picking up an object from the ground or a lower height and while carrying objects during at least 7/10 trials in order to decrease risk of fracture from osteoporosis and show good understanding of risks. LTG Duration 6 weeks Three Impairment strength Impairment Current L hip flexion and abduction strength 4-/5 Short Term Goal (STG) Pt will improve L hip flexion and abduction MMT to at least 4/5 strength with 2/10 pain or less in order to demonstrate improved strength needed for gait and stairs. STG Duration 3 weeks Ldr Rn Goal (LTG) Pt will improve L hip flexion and abduction MMT to at least 4+/5 strength without pain in order to demonstrate improved strength and activity tolerance. LTG Duration 6 weeks Two Impairment Balance Impairment Shah score 45/56 Short Term Goal (STG) Pt will increase Shah balance score by at least 2 points in order to decrease fall risk and demonstrate improved strength and balance. STG Duration 3 weeks Ldr Rn Goal (LTG) Pt will increase Shah balance score by at least 4 points ( MCID) in order to decrease fall risk and to demonstrate improved strength and balance. LTG Duration 6 weeks One Impairment function Impairment Current 6MWT = 802 m (2631 ft) Short Term Goal (STG) Pt will increase 6 MWT distance by 500 feet to demonstrate improved strength and activity tolerance. STG Duration 3 weeks Fpc Goal (LTG) Pt will increase 6 MWT distance by at least 1000 ft to demonstrate improved strength and activity tolerance in order to get back to her daily 1 mile walks. LTG Duration 6 weeks Assessment Summary Assessment Pt tolerated session well and demos improvement in activity tolerance & strength since last session. Pt reports improvement overall since IE, especially with her L hip strength. Initiated hip ER and IR stretching and strengthening. Tmt focus today on continued glute/quad strengthening; initiated resisted walkouts (multi- directional) and leg press (B and U squat). Pt demos good tolerance for activities and no hip pain. Will address balance more and continue strengthening in future sessions. Issued HEP: IR stretch, ER stretch, seated active IR with band. Pt would benefit from skilled PT to address impairments in L hip strength, mobility, gait, balance, and activity tolerance to return to PLOF. Physical Therapy Plan Frequency and Duration Frequency of Treatment 1x/Week Duration of treatment (weeks) 6 Plan of Care Start Date 10/08/23 Plan of Care End Date 11/19/23 Therapeutic Interventions Therapeutic Interventions Balance Training,Coordination Training,Gait Training,Home Exercise Program,Joint Mobilizations,Manual Therapy, Neuromuscular Re-education, Patient/Caregiver Education, Self-Care/Home Management,Soft Tissue Mobilization, Therapeutic Activities, Therapeutic Exercises Modalities Cold Pack/Ice Massage,Electric Stimulation,Hot Packs, Iontophoresis,Ultrasound Other Therapeutic Interventions Biomechanics training Fall safety training Next Visit Focus/Plan Next Note Type Treatment Note Next Visit Plan Balance and BLE strengthening (hip abd especially). Possible PN
--- NOTE | 2023-11-05 16:15 | PT.OTN ---
Current Diagnoses Other abnormalities of gait and mobility (11/05/23) Personal history of (healed) traumatic fracture (11/05/23) Physical Therapy Treatment Note PT-OP-A Visit Information Start: 10/08/23 10:44 Freq: Status: Active Protocol: Document 11/05/23 09:45 NM (Rec: 11/05/23 12:19 NM [id number]) Out-Patient Physical Therapy Visit Information Visit Information Visit Type Treatment Note Visit Note PN today Visit Start Time 09:45 Visit Stop Time 10:30 Total Visit Minutes 45 Visit Number 5 Evaluation Information Evaluation Date 10/08/23 PT-OP-B Current Condition Start: 10/08/23 10:44 Freq: Status: Active Protocol: Document 10/08/23 10:45 NM (Rec: 10/08/23 11:57 NM [id number]) Current Condition History of Current Condition Onset Date 08/10/23 Current Complaints weakness, L hip discomfort/ pain, difficulty walking History of Current Condition Pt presents s/p L hip frx following a fall out of a chair. Pt reports that she was sitting in her recliner when she attempted to get up without waking her , but lost her balance and fell onto her L hip. She underwent a L hemiarthroplasty on . Pt received home health PT for several weeks and was compliant with posterior hip precautions. At this time, pt does not have any hip precautions. Currently, she is able to ambulate without an AD, but she has a cane that she keeps in the car when she travels to environments with unknown terrain. She has 1 step to enter/exit home. Prior to this fall, pt reports that she has not had any falls in several years. She was recently diagnosed with osteoporosis. Prior Treatments and Tests PT Treatment Goals Patient/Caregiver Goals Walk at least 1 mi. 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 Walks 1 mi/day PT-OP-C Subjective Start: 10/08/23 12:22 Freq: Status: Active Protocol: Document 11/05/23 09:45 NM (Rec: 11/05/23 12:19 NM [id number]) OP-PT Subjective Patient Comments Patient Comments Pt is doing well today. She has no hip pain or stiffness. She reports mild discomfort in her anterior hip with walking ~ 1 mile; otherwise no pain or soreness with any movements /activities. She has been very compliant with HEP. Patient Reported Progress Improving PT-OP-D Balance Start: 10/08/23 10:44 Freq: Status: Active Protocol: Document 10/08/23 10:45 NM (Rec: 10/08/23 11:57 NM [id number]) OP-PT Balance Assessment Sitting Balance Static Sitting Balance Ability Normal Dynamic Sitting Balance Ability Normal Standing Balance Static Standing Balance Ability Good Dynamic Standing Balance Ability Good Balance Tests Shah Balance Test Shah Balance Test Score 45/56 Shah Impairment Rating 1 to 19% Impaired (Score 45-55 ) Marcano Fall Scale Copyright Permission PT-OP-E Functional Tests Start: 10/08/23 10:44 Freq: Status: Active Protocol: Document 10/08/23 10:45 NM (Rec: 10/08/23 11:57 NM [id number]) Functional Tests 6 Minute Walk Test Distance 802 m Device Used none Comments Antalgic; Ind;gait speed decreased with time. Dev ant hip pain >4 min Five Times Sit to Stand Test Score 12 sec Comments Mild sway, no LOB with repetition, no hands PT-OP-G Mobility & Gait Start: 10/08/23 10:44 Freq: Status: Active Protocol: Document 10/08/23 10:45 NM (Rec: 10/08/23 11:57 NM [id number]) OP Gait Assessment Gait Gait Assistance Required: Independent Able to Maintain Weight Bearing Status Yes During Gait Assistive Devices Assistive Device None,Straight Cane Gait Deviations General Gait Pattern Antalgic,Decreased Stride Length,Flexed Trunk Factors Limiting Gait Function Factors Limiting Gait Function Decreased Activity Tolerance Stair Climbing Evaluation Evaluation Level of Assist On Stairs Standby Assistance,Contact Guard Assistance Devices Stair Climbing Assistive Devices None Technique/Endurance Stair Climbing Direction Ascend and Descend Stair Climbing Technique Step to Step Number of Steps Climbed 4 Stair Climbing Set # Repetitions (reps) 1 Comments Stair Climbing Comments Able to ascend without UE use and SBA. Descends with 1 VISUAL SUPERVISOR and CGA for steadying PT-OP-J Posture/Palpation/Skin Start: 10/08/23 10:44 Freq: Status: Active Protocol: Document 10/08/23 10:45 NM (Rec: 10/08/23 11:57 NM [id number]) Posture Evaluation Position Standing Evaluation View Lateral T-Spine Posture Increased Kyphosis L-Spine Posture Increased Lordosis Shoulder Posture (R) Forward,(L) Elevated Pelvis Posture Anteriorly Tilted Hip Posture (L) Externally Rotated Knee Posture (L) Genu Valgus,(R) Genu Valgus Skin Assessment Incisional Assessment Incision Appearance/Comments Intact. Would benefit from scar mobilization to prevent adhesions Other Assessments Skin Assessment Comments Pt has some mild swelling in lateral ankle but comparable size to RLE PT-OP-K Range of Motion Start: 10/08/23 10:44 Freq: Status: Active Protocol: Document 10/08/23 10:45 NM (Rec: 10/08/23 11:57 NM [id number]) Hip Goniometric Range of Motion Hip Right Hip ROM WFL No Testing Position Supine Flexion w/Knee Flexed 100 Extension 10 Abduction 14 Internal Rotation 34 External Rotation 20 Left Hip ROM WFL No Testing Position Supine Flexion w/Knee Flexed 100 Extension 5 Abduction 14 Internal Rotation 20 External Rotation 15 Comments No pain with any active movement Hip ROM Limitations Hip ROM Limitations Soft Tissue Tightness,Muscle Weakness,Swelling Knee Goniometric Range of Motion Knee Right Knee ROM WFL Yes Patient Position Supine Flexion Active (degrees) 146 Extension Active (degrees) 5 Left Knee ROM WFL Yes Patient Position Supine Flexion Active (degrees) 130 Extension Active (degrees) 5 Knee ROM Limitations Knee ROM Limitations Soft Tissue Tightness Comments some limitation in L knee due to L hip ROM limitations PT-OP-M Strength Start: 10/08/23 10:44 Freq: Status: Active Protocol: Document 10/08/23 10:45 NM (Rec: 10/08/23 11:57 NM [id number]) Hip Strength Hip Manual Muscle Testing Right Flexion (L2) 4 Good Extension (S1) 3 Fair Abduction 4- Good- Adduction 4 Good External Rotation 4+ Good+ Internal Rotation 4+ Good+ Comments Only able to extend through ROM during hip ext, unable to withstand any resistance. Left Flexion (L2) 4- Good- Extension (S1) 3 Fair Abduction 4- Good- Adduction 4- Good- External Rotation 4- Good- Internal Rotation 4- Good- Comments Min pain with hip flex. Only able to extend through ROM during hip ext, unable to withstand any resistance. Difficulty with straight leg raise from table without ant hip pain, only able to lift 4 . Knee Strength Knee Manual Muscle Testing Right Flexion (S2) 4+ Good+ Extension (L3) 4+ Good+ Left Flexion (S2) 4- Good- Extension (L3) 4- Good- Comments No pain PT-OP-Q Treatments Start: 10/08/23 10:44 Freq: Status: Active Protocol: Document 11/05/23 09:45 NM (Rec: 11/05/23 12:19 NM [id number]) Therapeutic Exercises Standing Exercises Hip flex stretch Standing Exercise Name Captain Pipo Khalil left Equipment Used stairs, foot on 6 step Reps/Minutes 2x30 Therapeutic Activity Therapeutic Activity Sit to stand Reps/Minutes 1x10 Comments From <18 to simulate getting up from her toilet at night. Pt cued to perform fwd reach and weight shift. Education x8 min about safety with having a light on, using grab bars since available, scooting to EOB. Gait Training Gait Activity 6 MWT Device Used none Level of Assistance Ind Surface stable Distance/Duration 02240 ft (3239 m) Treatment Focus endurance, nml gait, balance Comments Improve since IE. At 5 min karissa, reports mild discomfort in ant hip but no pain. Cues for upright posture Normal Gait Device Used none Level of Assistance Ind Surface stable Distance/Duration 2-3 min Treatment Focus Heel > toe pattern, equal step length, limb advancement, balance Comments Good heel>toe, foot clearance. Able to correct for LOB without assistance or UE use. Cues only for upright posture Neuro Re-Education Treatment Balance Activities Shah Surface stable Comments 54/56 Difficulty only with SLS unsupported (able to do 5 sec B) and semi-tandem (unable to do tandem). Single Leg Stance Details bilaterally Equipment //bars Reps/Duration 2x30 Comments SBA 2 fingers> no fingers for UE support or steadying. Mod trendelenburg PT-OP-T Assessment and Plan Start: 10/08/23 10:44 Freq: Status: Active Protocol: Document 11/05/23 09:45 NM (Rec: 11/05/23 12:19 NM [id number]) Physical Therapy Assessment Rehab Potential Rehabilitation Potential Good Evaluation Complexity Number of Personal Factors/Comorbidities 1-2 Number of Body Systems Impaired 1-2 Clinical Presentation at Evaluation Stable Impairments Impairments Activity Tolerance,Balance, Functional Activities, Functional Mobility,Gait,Pain, ROM,Soft Tissue Mobility, Strength Other Impairments Body mechanics Goals Five Impairment ROM Impairment L hip IR and ER ROM limited ( 20 deg and 15 deg, respectively) Short Term Goal (STG) Pt will improve L hip IR and ER by at least 5 deg. STG Duration 3 weeks Intelligence Senior Sergeant Goal (LTG) Pt will improve L hip IR and ER to be within at least 5 degrees of R hip IR and ER to demonstrate improved hip ROM for gait and stairs. LTG Duration 6 weeks Four Impairment function Impairment body mechanics, lifting due to osteoporosis Short Term Goal (STG) Pt will be educated on and demonstrate understanding of importance of good spinal/hip body mechanics during lifting objects from the ground/lower height or carrying objects due to risk of fracture with osteoporosis. STG Duration 3 weeks Intelligence Senior Sergeant Goal (LTG) Pt will demonstrate safe body mechanics and maintain balance while picking up an object from the ground or a lower height and while carrying objects during at least 7/10 trials in order to decrease risk of fracture from osteoporosis and show good understanding of risks. LTG Duration 6 weeks Three Impairment strength Impairment Current L hip flexion and abduction strength 4-/5 Short Term Goal (STG) Pt will improve L hip flexion and abduction MMT to at least 4/5 strength with 2/10 pain or less in order to demonstrate improved strength needed for gait and stairs. STG Duration 3 weeks Snf Goal (LTG) Pt will improve L hip flexion and abduction MMT to at least 4+/5 strength without pain in order to demonstrate improved strength and activity tolerance. LTG Duration 6 weeks Two Impairment Balance Impairment Shah score 45/56 Short Term Goal (STG) Pt will increase Shah balance score by at least 2 points in order to decrease fall risk and demonstrate improved strength and balance. STG Duration 3 weeks Intelligence Senior Sergeant Goal (LTG) Pt will increase Shah balance score by at least 4 points ( MCID) in order to decrease fall risk and to demonstrate improved strength and balance. LTG Duration 6 weeks One Impairment function Impairment Current 6MWT = 802 m (2631 ft) Short Term Goal (STG) Pt will increase 6 MWT distance by 500 feet to demonstrate improved strength and activity tolerance. STG Duration 3 weeks Intelligence Senior Sergeant Goal (LTG) Pt will increase 6 MWT distance by at least 1000 ft to demonstrate improved strength and activity tolerance in order to get back to her daily 1 mile walks. LTG Duration 6 weeks Assessment Summary Assessment Pt tolerated session well and demos improvement in activity tolerance & strength. Her 6MWT distance has increased to 10, 627 ft. Her Shah balance score has also improved to 54/56, indicating a decreased fall risk. Pt would benefit from skilled PT to address impairments in L hip strength, mobility, gait, balance, and activity tolerance to return to PLOF.
--- NOTE | 2023-11-05 16:34 | PT.OTN ---
Current Diagnoses Other abnormalities of gait and mobility (11/05/23) Personal history of (healed) traumatic fracture (11/05/23) Physical Therapy Treatment Note PT-OP-A Visit Information Start: 10/08/23 10:44 Freq: Status: Active Protocol: Document 11/05/23 09:45 NM (Rec: 11/05/23 12:19 NM [id number]) Out-Patient Physical Therapy Visit Information Visit Information Visit Type Treatment Note Visit Note PN today Visit Start Time 09:45 Visit Stop Time 10:30 Total Visit Minutes 45 Visit Number 5 Evaluation Information Evaluation Date 10/08/23 PT-OP-B Current Condition Start: 10/08/23 10:44 Freq: Status: Active Protocol: Document 10/08/23 10:45 NM (Rec: 10/08/23 11:57 NM [id number]) Current Condition History of Current Condition Onset Date 08/10/23 Current Complaints weakness, L hip discomfort/ pain, difficulty walking History of Current Condition Pt presents s/p L hip frx following a fall out of a chair. Pt reports that she was sitting in her recliner when she attempted to get up without waking her , but lost her balance and fell onto her L hip. She underwent a L hemiarthroplasty on . Pt received home health PT for several weeks and was compliant with posterior hip precautions. At this time, pt does not have any hip precautions. Currently, she is able to ambulate without an AD, but she has a cane that she keeps in the car when she travels to environments with unknown terrain. She has 1 step to enter/exit home. Prior to this fall, pt reports that she has not had any falls in several years. She was recently diagnosed with osteoporosis. Prior Treatments and Tests PT Treatment Goals Patient/Caregiver Goals Walk at least 1 mi. 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 Walks 1 mi/day PT-OP-C Subjective Start: 10/08/23 12:22 Freq: Status: Active Protocol: Document 11/05/23 09:45 NM (Rec: 11/05/23 12:19 NM [id number]) OP-PT Subjective Patient Comments Patient Comments Pt is doing well today. She has no hip pain or stiffness. She reports mild discomfort in her anterior hip with walking ~ 1 mile; otherwise no pain or soreness with any movements /activities. She has been very compliant with HEP. Patient Reported Progress Improving PT-OP-D Balance Start: 10/08/23 10:44 Freq: Status: Active Protocol: Document 10/08/23 10:45 NM (Rec: 10/08/23 11:57 NM [id number]) OP-PT Balance Assessment Sitting Balance Static Sitting Balance Ability Normal Dynamic Sitting Balance Ability Normal Standing Balance Static Standing Balance Ability Good Dynamic Standing Balance Ability Good Balance Tests Shah Balance Test Shah Balance Test Score 45/56 Shah Impairment Rating 1 to 19% Impaired (Score 45-55 ) Marcano Fall Scale Copyright Permission PT-OP-E Functional Tests Start: 10/08/23 10:44 Freq: Status: Active Protocol: Document 10/08/23 10:45 NM (Rec: 10/08/23 11:57 NM [id number]) Functional Tests 6 Minute Walk Test Distance 802 m Device Used none Comments Antalgic; Ind;gait speed decreased with time. Dev ant hip pain >4 min Five Times Sit to Stand Test Score 12 sec Comments Mild sway, no LOB with repetition, no hands PT-OP-G Mobility & Gait Start: 10/08/23 10:44 Freq: Status: Active Protocol: Document 10/08/23 10:45 NM (Rec: 10/08/23 11:57 NM [id number]) OP Gait Assessment Gait Gait Assistance Required: Independent Able to Maintain Weight Bearing Status Yes During Gait Assistive Devices Assistive Device None,Straight Cane Gait Deviations General Gait Pattern Antalgic,Decreased Stride Length,Flexed Trunk Factors Limiting Gait Function Factors Limiting Gait Function Decreased Activity Tolerance Stair Climbing Evaluation Evaluation Level of Assist On Stairs Standby Assistance,Contact Guard Assistance Devices Stair Climbing Assistive Devices None Technique/Endurance Stair Climbing Direction Ascend and Descend Stair Climbing Technique Step to Step Number of Steps Climbed 4 Stair Climbing Set # Repetitions (reps) 1 Comments Stair Climbing Comments Able to ascend without UE use and SBA. Descends with 1 BIODIESEL ENGINEERING MANAGER and CGA for steadying PT-OP-J Posture/Palpation/Skin Start: 10/08/23 10:44 Freq: Status: Active Protocol: Document 10/08/23 10:45 NM (Rec: 10/08/23 11:57 NM [id number]) Posture Evaluation Position Standing Evaluation View Lateral T-Spine Posture Increased Kyphosis L-Spine Posture Increased Lordosis Shoulder Posture (R) Forward,(L) Elevated Pelvis Posture Anteriorly Tilted Hip Posture (L) Externally Rotated Knee Posture (L) Genu Valgus,(R) Genu Valgus Skin Assessment Incisional Assessment Incision Appearance/Comments Intact. Would benefit from scar mobilization to prevent adhesions Other Assessments Skin Assessment Comments Pt has some mild swelling in lateral ankle but comparable size to RLE PT-OP-K Range of Motion Start: 10/08/23 10:44 Freq: Status: Active Protocol: Document 10/08/23 10:45 NM (Rec: 10/08/23 11:57 NM [id number]) Hip Goniometric Range of Motion Hip Right Hip ROM WFL No Testing Position Supine Flexion w/Knee Flexed 100 Extension 10 Abduction 14 Internal Rotation 34 External Rotation 20 Left Hip ROM WFL No Testing Position Supine Flexion w/Knee Flexed 100 Extension 5 Abduction 14 Internal Rotation 20 External Rotation 15 Comments No pain with any active movement Hip ROM Limitations Hip ROM Limitations Soft Tissue Tightness,Muscle Weakness,Swelling Knee Goniometric Range of Motion Knee Right Knee ROM WFL Yes Patient Position Supine Flexion Active (degrees) 146 Extension Active (degrees) 5 Left Knee ROM WFL Yes Patient Position Supine Flexion Active (degrees) 130 Extension Active (degrees) 5 Knee ROM Limitations Knee ROM Limitations Soft Tissue Tightness Comments some limitation in L knee due to L hip ROM limitations PT-OP-M Strength Start: 10/08/23 10:44 Freq: Status: Active Protocol: Document 10/08/23 10:45 NM (Rec: 10/08/23 11:57 NM [id number]) Hip Strength Hip Manual Muscle Testing Right Flexion (L2) 4 Good Extension (S1) 3 Fair Abduction 4- Good- Adduction 4 Good External Rotation 4+ Good+ Internal Rotation 4+ Good+ Comments Only able to extend through ROM during hip ext, unable to withstand any resistance. Left Flexion (L2) 4- Good- Extension (S1) 3 Fair Abduction 4- Good- Adduction 4- Good- External Rotation 4- Good- Internal Rotation 4- Good- Comments Min pain with hip flex. Only able to extend through ROM during hip ext, unable to withstand any resistance. Difficulty with straight leg raise from table without ant hip pain, only able to lift 4 . Knee Strength Knee Manual Muscle Testing Right Flexion (S2) 4+ Good+ Extension (L3) 4+ Good+ Left Flexion (S2) 4- Good- Extension (L3) 4- Good- Comments No pain PT-OP-Q Treatments Start: 10/08/23 10:44 Freq: Status: Active Protocol: Document 11/05/23 09:45 NM (Rec: 11/05/23 12:19 NM [id number]) Cardio Equipment Recumbent Elliptical (Biodex) Duration (Minutes) 5 Resistance 4 Other BLE only Therapeutic Exercises Standing Exercises Hip flex stretch Standing Exercise Name Captain Pipo Khalil left Equipment Used stairs, foot on 6 step Reps/Minutes 2x30 Therapeutic Activity Therapeutic Activity Sit to stand Reps/Minutes 1x10 Comments From <18 to simulate getting up from her toilet at night. Pt cued to perform fwd reach and weight shift. STS + education x8 min about safety with having a light on, using grab bars since available, scooting to EOB. Gait Training Gait Activity 6 MWT Device Used none Level of Assistance Ind Surface stable Distance/Duration 3800 ft Treatment Focus endurance, nml gait, balance Comments Improve since IE. At 5 min karissa, reports mild discomfort in ant hip but no pain. Cues for upright posture Normal Gait Device Used none Level of Assistance Ind Surface stable Distance/Duration 2-3 min Treatment Focus Heel > toe pattern, equal step length, limb advancement, balance Comments Good heel>toe, foot clearance. Able to correct for LOB without assistance or UE use. Cues only for upright posture Neuro Re-Education Treatment Balance Activities Shah Surface stable Comments 54/56 Difficulty only with SLS unsupported (able to do 5 sec B) and semi-tandem (unable to do tandem). Single Leg Stance Details bilaterally Equipment //bars Reps/Duration 2x30 Comments SBA 2 fingers> no fingers for UE support or steadying. Mod trendelenburg PT-OP-T Assessment and Plan Start: 10/08/23 10:44 Freq: Status: Active Protocol: Document 11/05/23 09:45 NM (Rec: 11/05/23 12:19 NM [id number]) Physical Therapy Assessment Rehab Potential Rehabilitation Potential Good Evaluation Complexity Number of Personal Factors/Comorbidities 1-2 Number of Body Systems Impaired 1-2 Clinical Presentation at Evaluation Stable Impairments Impairments Activity Tolerance,Balance, Functional Activities, Functional Mobility,Gait,Pain, ROM,Soft Tissue Mobility, Strength Other Impairments Body mechanics Goals Five Impairment ROM Impairment L hip IR and ER ROM limited ( 20 deg and 15 deg, respectively) Short Term Goal (STG) Pt will improve L hip IR and ER by at least 5 deg. STG Duration 3 weeks Senior Care Goal (LTG) Pt will improve L hip IR and ER to be within at least 5 degrees of R hip IR and ER to demonstrate improved hip ROM for gait and stairs. MET: 11/05/23- now L hip IR 35 deg, ER 22 deg LTG Duration 6 weeks Four Impairment function Impairment body mechanics, lifting due to osteoporosis Short Term Goal (STG) Pt will be educated on and demonstrate understanding of importance of good spinal/hip body mechanics during lifting objects from the ground/lower height or carrying objects due to risk of fracture with osteoporosis. NOT MET 11/05/23 STG Duration 3 weeks Senior Care Goal (LTG) Pt will demonstrate safe body mechanics and maintain balance while picking up an object from the ground or a lower height and while carrying objects during at least 7/10 trials in order to decrease risk of fracture from osteoporosis and show good understanding of risks. NOT MET 11/05/23 LTG Duration 6 weeks Three Impairment strength Impairment Current L hip flexion and abduction strength 4-/5 Short Term Goal (STG) Pt will improve L hip flexion and abduction MMT to at least 4/5 strength with 2/10 pain or less in order to demonstrate improved strength needed for gait and stairs. MET 11/05/23: hip flex MMT 4/5, abd MMT 5/5 STG Duration 3 weeks Digital Media Associate Goal (LTG) Pt will improve L hip flexion and abduction MMT to at least 4+/5 strength without pain in order to demonstrate improved strength and activity tolerance. PARTIALLY MET 11/05/23: hip flex MMT 4/5 and abd MMT 5/5 LTG Duration 6 weeks Two Impairment Balance Impairment Shah score 45/56 Short Term Goal (STG) Pt will increase Shah balance score by at least 2 points in order to decrease fall risk and demonstrate improved strength and balance. MET 11/05/23: 54/56 STG Duration 3 weeks Senior Care Goal (LTG) Pt will increase Shah balance score by at least 4 points ( MCID) in order to decrease fall risk and to demonstrate improved strength and balance. MET 11/05/23: 54/56 LTG Duration 6 weeks One Impairment function Impairment Current 6MWT = 802 m (2631 ft) Short Term Goal (STG) Pt will increase 6 MWT distance by 500 feet to demonstrate improved strength and activity tolerance. MET 11/05/23 STG Duration 3 weeks Digital Media Associate Goal (LTG) Pt will increase 6 MWT distance by at least 1000 ft to demonstrate improved strength and activity tolerance in order to get back to her daily 1 mile walks. MET 11/05/23: 3800 ft ambulated without AD LTG Duration 6 weeks Assessment Summary Assessment Pt tolerated session well and demos improvement in activity tolerance & strength. PN today , therefore tmt focus on balance, strength, and gait. Her 6MWT distance has increased to 3800 ft. Her Shah balance score has also improved to 54/56, indicating a decreased fall risk. Pt still has slight discomfort in ant hip with ambulation, so hip flex stretch initiated. In future sessions, will continue to address BLE strengthening, balance, and lifting mechanics/osteoporosis edu. Pt would benefit from skilled PT to address impairments in L hip strength, mobility, gait, balance, and activity tolerance to return to PLOF.
--- NOTE | 2023-11-05 16:43 | PT.OTN ---
Current Diagnoses Other abnormalities of gait and mobility (11/05/23) Personal history of (healed) traumatic fracture (11/05/23) Physical Therapy Treatment Note PT-OP-A Visit Information Start: 10/08/23 10:44 Freq: Status: Active Protocol: Document 11/05/23 09:45 NM (Rec: 11/05/23 16:36 NM [id number]) Out-Patient Physical Therapy Visit Information Visit Information Visit Type Treatment Note Visit Note PN today Visit Start Time 09:45 Visit Stop Time 10:30 Total Visit Minutes 45 Visit Number 5 Evaluation Information Evaluation Date 10/08/23 PT-OP-B Current Condition Start: 10/08/23 10:44 Freq: Status: Active Protocol: Document 10/08/23 10:45 NM (Rec: 10/08/23 11:57 NM [id number]) Current Condition History of Current Condition Onset Date 08/10/23 Current Complaints weakness, L hip discomfort/ pain, difficulty walking History of Current Condition Pt presents s/p L hip frx following a fall out of a chair. Pt reports that she was sitting in her recliner when she attempted to get up without waking her , but lost her balance and fell onto her L hip. She underwent a L hemiarthroplasty on . Pt received home health PT for several weeks and was compliant with posterior hip precautions. At this time, pt does not have any hip precautions. Currently, she is able to ambulate without an AD, but she has a cane that she keeps in the car when she travels to environments with unknown terrain. She has 1 step to enter/exit home. Prior to this fall, pt reports that she has not had any falls in several years. She was recently diagnosed with osteoporosis. Prior Treatments and Tests PT Treatment Goals Patient/Caregiver Goals Walk at least 1 mi. without pain forming machine upkeep mechanic objects off of the floor Prior Functional Status Baseline Function- ADL's Independent Baseline Function- Mobility Independent Baseline Function- Gait No AD use. Walks 1 mi/day PT-OP-C Subjective Start: 10/08/23 12:22 Freq: Status: Active Protocol: Document 11/05/23 09:45 NM (Rec: 11/05/23 16:36 NM [id number]) OP-PT Subjective Patient Comments Patient Comments Pt is doing well today. She has no hip pain or stiffness. She reports mild discomfort in her anterior hip with walking ~ 1 mile; otherwise no pain or soreness with any movements /activities. She has been very compliant with HEP. Patient Reported Progress Improving PT-OP-D Balance Start: 10/08/23 10:44 Freq: Status: Active Protocol: Document 10/08/23 10:45 NM (Rec: 10/08/23 11:57 NM [id number]) OP-PT Balance Assessment Sitting Balance Static Sitting Balance Ability Normal Dynamic Sitting Balance Ability Normal Standing Balance Static Standing Balance Ability Good Dynamic Standing Balance Ability Good Balance Tests Shah Balance Test Shah Balance Test Score 45/56 Shah Impairment Rating 1 to 19% Impaired (Score 45-55 ) Marcano Fall Scale Copyright Permission PT-OP-E Functional Tests Start: 10/08/23 10:44 Freq: Status: Active Protocol: Document 10/08/23 10:45 NM (Rec: 10/08/23 11:57 NM [id number]) Functional Tests 6 Minute Walk Test Distance 802 m Device Used none Comments Antalgic; Ind;gait speed decreased with time. Dev ant hip pain >4 min Five Times Sit to Stand Test Score 12 sec Comments Mild sway, no LOB with repetition, no hands PT-OP-G Mobility & Gait Start: 10/08/23 10:44 Freq: Status: Active Protocol: Document 10/08/23 10:45 NM (Rec: 10/08/23 11:57 NM [id number]) OP Gait Assessment Gait Gait Assistance Required: Independent Able to Maintain Weight Bearing Status Yes During Gait Assistive Devices Assistive Device None,Straight Cane Gait Deviations General Gait Pattern Antalgic,Decreased Stride Length,Flexed Trunk Factors Limiting Gait Function Factors Limiting Gait Function Decreased Activity Tolerance Stair Climbing Evaluation Evaluation Level of Assist On Stairs Standby Assistance,Contact Guard Assistance Devices Stair Climbing Assistive Devices None Technique/Endurance Stair Climbing Direction Ascend and Descend Stair Climbing Technique Step to Step Number of Steps Climbed 4 Stair Climbing Set # Repetitions (reps) 1 Comments Stair Climbing Comments Able to ascend without UE use and SBA. Descends with 1 CONTROL CENTER OPERATOR and CGA for steadying PT-OP-J Posture/Palpation/Skin Start: 10/08/23 10:44 Freq: Status: Active Protocol: Document 10/08/23 10:45 NM (Rec: 10/08/23 11:57 NM [id number]) Posture Evaluation Position Standing Evaluation View Lateral T-Spine Posture Increased Kyphosis L-Spine Posture Increased Lordosis Shoulder Posture (R) Forward,(L) Elevated Pelvis Posture Anteriorly Tilted Hip Posture (L) Externally Rotated Knee Posture (L) Genu Valgus,(R) Genu Valgus Skin Assessment Incisional Assessment Incision Appearance/Comments Intact. Would benefit from scar mobilization to prevent adhesions Other Assessments Skin Assessment Comments Pt has some mild swelling in lateral ankle but comparable size to RLE PT-OP-K Range of Motion Start: 10/08/23 10:44 Freq: Status: Active Protocol: Document 10/08/23 10:45 NM (Rec: 10/08/23 11:57 NM [id number]) Hip Goniometric Range of Motion Hip Right Hip ROM WFL No Testing Position Supine Flexion w/Knee Flexed 100 Extension 10 Abduction 14 Internal Rotation 34 External Rotation 20 Left Hip ROM WFL No Testing Position Supine Flexion w/Knee Flexed 100 Extension 5 Abduction 14 Internal Rotation 20 External Rotation 15 Comments No pain with any active movement Hip ROM Limitations Hip ROM Limitations Soft Tissue Tightness,Muscle Weakness,Swelling Knee Goniometric Range of Motion Knee Right Knee ROM WFL Yes Patient Position Supine Flexion Active (degrees) 146 Extension Active (degrees) 5 Left Knee ROM WFL Yes Patient Position Supine Flexion Active (degrees) 130 Extension Active (degrees) 5 Knee ROM Limitations Knee ROM Limitations Soft Tissue Tightness Comments some limitation in L knee due to L hip ROM limitations PT-OP-M Strength Start: 10/08/23 10:44 Freq: Status: Active Protocol: Document 10/08/23 10:45 NM (Rec: 10/08/23 11:57 NM [id number]) Hip Strength Hip Manual Muscle Testing Right Flexion (L2) 4 Good Extension (S1) 3 Fair Abduction 4- Good- Adduction 4 Good External Rotation 4+ Good+ Internal Rotation 4+ Good+ Comments Only able to extend through ROM during hip ext, unable to withstand any resistance. Left Flexion (L2) 4- Good- Extension (S1) 3 Fair Abduction 4- Good- Adduction 4- Good- External Rotation 4- Good- Internal Rotation 4- Good- Comments Min pain with hip flex. Only able to extend through ROM during hip ext, unable to withstand any resistance. Difficulty with straight leg raise from table without ant hip pain, only able to lift 4 . Knee Strength Knee Manual Muscle Testing Right Flexion (S2) 4+ Good+ Extension (L3) 4+ Good+ Left Flexion (S2) 4- Good- Extension (L3) 4- Good- Comments No pain PT-OP-Q Treatments Start: 10/08/23 10:44 Freq: Status: Active Protocol: Document 11/05/23 09:45 NM (Rec: 11/05/23 16:36 NM [id number]) Cardio Equipment Recumbent Elliptical (Biodex) Duration (Minutes) 5 Resistance 4 Other BLE only Therapeutic Exercises Standing Exercises Hip flex stretch Standing Exercise Name Captain Pipo Khalil left Equipment Used stairs, foot on 6 step Reps/Minutes 2x30 Therapeutic Activity Therapeutic Activity Sit to stand Reps/Minutes 1x10 Comments From <18 to simulate getting up from her toilet at night. Pt cued to perform fwd reach and weight shift. STS + education x8 min about safety with having a light on, using grab bars since available, scooting to EOB. Gait Training Gait Activity 6 MWT Device Used none Level of Assistance Ind Surface stable Distance/Duration 3800 ft Treatment Focus endurance, nml gait, balance Comments Improve since IE. At 5 min karissa, reports mild discomfort in ant hip but no pain. Cues for upright posture Neuro Re-Education Treatment Balance Activities Shah Surface stable Comments 54/56 Difficulty only with SLS unsupported (able to do 5 sec B) and semi-tandem (unable to do tandem). PT-OP-T Assessment and Plan Start: 10/08/23 10:44 Freq: Status: Active Protocol: Document 11/05/23 09:45 NM (Rec: 11/05/23 16:36 NM [id number]) Physical Therapy Assessment Rehab Potential Rehabilitation Potential Good Evaluation Complexity Number of Personal Factors/Comorbidities 1-2 Number of Body Systems Impaired 1-2 Clinical Presentation at Evaluation Stable Impairments Impairments Activity Tolerance,Balance, Functional Activities, Functional Mobility,Gait,Pain, ROM,Soft Tissue Mobility, Strength Other Impairments Body mechanics Goals Five Impairment ROM Impairment L hip IR and ER ROM limited ( 20 deg and 15 deg, respectively) Short Term Goal (STG) Pt will improve L hip IR and ER by at least 5 deg. STG Duration 3 weeks Map And Chart Mounter Goal (LTG) Pt will improve L hip IR and ER to be within at least 5 degrees of R hip IR and ER to demonstrate improved hip ROM for gait and stairs. MET: 11/05/23- now L hip IR 35 deg, ER 22 deg LTG Duration 6 weeks Four Impairment function Impairment body mechanics, lifting due to osteoporosis Short Term Goal (STG) Pt will be educated on and demonstrate understanding of importance of good spinal/hip body mechanics during lifting objects from the ground/lower height or carrying objects due to risk of fracture with osteoporosis. NOT MET 11/05/23 STG Duration 3 weeks Map And Chart Mounter Goal (LTG) Pt will demonstrate safe body mechanics and maintain balance while picking up an object from the ground or a lower height and while carrying objects during at least 7/10 trials in order to decrease risk of fracture from osteoporosis and show good understanding of risks. NOT MET 11/05/23 LTG Duration 6 weeks Three Impairment strength Impairment Current L hip flexion and abduction strength 4-/5 Short Term Goal (STG) Pt will improve L hip flexion and abduction MMT to at least 4/5 strength with 2/10 pain or less in order to demonstrate improved strength needed for gait and stairs. MET 11/05/23: hip flex MMT 4/5, abd MMT 5/5 STG Duration 3 weeks Shelter Goal (LTG) Pt will improve L hip flexion and abduction MMT to at least 4+/5 strength without pain in order to demonstrate improved strength and activity tolerance. PARTIALLY MET 11/05/23: hip flex MMT 4/5 and abd MMT 5/5 LTG Duration 6 weeks Two Impairment Balance Impairment Shah score 45/56 Short Term Goal (STG) Pt will increase Shah balance score by at least 2 points in order to decrease fall risk and demonstrate improved strength and balance. MET 11/05/23: 54/56 STG Duration 3 weeks Map And Chart Mounter Goal (LTG) Pt will increase Shah balance score by at least 4 points ( MCID) in order to decrease fall risk and to demonstrate improved strength and balance. MET 11/05/23: 54/56 LTG Duration 6 weeks One Impairment function Impairment Current 6MWT = 802 m (2631 ft) Short Term Goal (STG) Pt will increase 6 MWT distance by 500 feet to demonstrate improved strength and activity tolerance. MET 11/05/23 STG Duration 3 weeks Shelter Goal (LTG) Pt will increase 6 MWT distance by at least 1000 ft to demonstrate improved strength and activity tolerance in order to get back to her daily 1 mile walks. MET 11/05/23: 3800 ft ambulated without AD LTG Duration 6 weeks Assessment Summary Assessment Pt tolerated session well and demos improvement in activity tolerance & strength. PN today , therefore tmt focus on balance, strength, and gait. Her 6MWT distance has increased to 3800 ft. Her Shah balance score has also improved to 54/56, indicating a decreased fall risk. Pt still has slight discomfort in ant hip with ambulation, so hip flex stretch initiated. In future sessions, will continue to address BLE strengthening, balance, and lifting mechanics/osteoporosis edu. Pt would benefit from skilled PT to address impairments in L hip strength, mobility, gait, balance, and activity tolerance to return to PLOF. Physical Therapy Plan Frequency and Duration Frequency of Treatment 1x/Week Duration of treatment (weeks) 6 Plan of Care Start Date 10/08/23 Plan of Care End Date 11/19/23 Therapeutic Interventions Therapeutic Interventions Balance Training,Coordination Training,Gait Training,Home Exercise Program,Joint Mobilizations,Manual Therapy, Neuromuscular Re-education, Patient/Caregiver Education, Self-Care/Home Management,Soft Tissue Mobilization, Therapeutic Activities, Therapeutic Exercises Modalities Cold Pack/Ice Massage,Electric Stimulation,Hot Packs, Iontophoresis,Ultrasound Other Therapeutic Interventions Biomechanics training Fall safety training Next Visit Focus/Plan Next Note Type Treatment Note Next Visit Plan Balance and BLE strengthening (hip abd especially).
--- NOTE | 2023-11-12 11:53 | PT.OTN ---
Current Diagnoses Other abnormalities of gait and mobility (11/12/23) Personal history of (healed) traumatic fracture (11/12/23) Physical Therapy Treatment Note PT-OP-A Visit Information Start: 10/08/23 10:44 Freq: Status: Active Protocol: Document 11/12/23 09:49 NM (Rec: 11/12/23 10:30 NM [id number]) Out-Patient Physical Therapy Visit Information Visit Information Visit Type Treatment Note Visit Start Time 09:45 Visit Stop Time 10:30 Total Visit Minutes 45 Visit Number 6 Evaluation Information Evaluation Date 10/08/23 PT-OP-B Current Condition Start: 10/08/23 10:44 Freq: Status: Active Protocol: Document 10/08/23 10:45 NM (Rec: 10/08/23 11:57 NM [id number]) Current Condition History of Current Condition Onset Date 08/10/23 Current Complaints weakness, L hip discomfort/ pain, difficulty walking History of Current Condition Pt presents s/p L hip frx following a fall out of a chair. Pt reports that she was sitting in her recliner when she attempted to get up without waking her , but lost her balance and fell onto her L hip. She underwent a L hemiarthroplasty on . Pt received home health PT for several weeks and was compliant with posterior hip precautions. At this time, pt does not have any hip precautions. Currently, she is able to ambulate without an AD, but she has a cane that she keeps in the car when she travels to environments with unknown terrain. She has 1 step to enter/exit home. Prior to this fall, pt reports that she has not had any falls in several years. She was recently diagnosed with osteoporosis. 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 Walks 1 mi/day PT-OP-C Subjective Start: 10/08/23 12:22 Freq: Status: Active Protocol: Document 11/12/23 09:49 NM (Rec: 11/12/23 10:30 NM [id number]) OP-PT Subjective Patient Comments Patient Comments Pt reports that she is doing well and feels like she has improved significantly. She states that her walking distance has increased and she is no longer having anterior hip pain after beginning stretching her hip flexors. She is compliant with HEP Patient Reported Progress Improving PT-OP-D Balance Start: 10/08/23 10:44 Freq: Status: Active Protocol: Document 10/08/23 10:45 NM (Rec: 10/08/23 11:57 NM [id number]) OP-PT Balance Assessment Sitting Balance Static Sitting Balance Ability Normal Dynamic Sitting Balance Ability Normal Standing Balance Static Standing Balance Ability Good Dynamic Standing Balance Ability Good Balance Tests Shah Balance Test Shah Balance Test Score 45/56 Shah Impairment Rating 1 to 19% Impaired (Score 45-55 ) Marcano Fall Scale Copyright Permission PT-OP-E Functional Tests Start: 10/08/23 10:44 Freq: Status: Active Protocol: Document 10/08/23 10:45 NM (Rec: 10/08/23 11:57 NM [id number]) Functional Tests 6 Minute Walk Test Distance 802 m Device Used none Comments Antalgic; Ind;gait speed decreased with time. Dev ant hip pain >4 min Five Times Sit to Stand Test Score 12 sec Comments Mild sway, no LOB with repetition, no hands PT-OP-G Mobility & Gait Start: 10/08/23 10:44 Freq: Status: Active Protocol: Document 10/08/23 10:45 NM (Rec: 10/08/23 11:57 NM [id number]) OP Gait Assessment Gait Gait Assistance Required: Independent Able to Maintain Weight Bearing Status Yes During Gait Assistive Devices Assistive Device None,Straight Cane Gait Deviations General Gait Pattern Antalgic,Decreased Stride Length,Flexed Trunk Factors Limiting Gait Function Factors Limiting Gait Function Decreased Activity Tolerance Stair Climbing Evaluation Evaluation Level of Assist On Stairs Standby Assistance,Contact Guard Assistance Devices Stair Climbing Assistive Devices None Technique/Endurance Stair Climbing Direction Ascend and Descend Stair Climbing Technique Step to Step Number of Steps Climbed 4 Stair Climbing Set # Repetitions (reps) 1 Comments Stair Climbing Comments Able to ascend without UE use and SBA. Descends with 1 TITLE I ASSISTANT and CGA for steadying PT-OP-J Posture/Palpation/Skin Start: 10/08/23 10:44 Freq: Status: Active Protocol: Document 10/08/23 10:45 NM (Rec: 10/08/23 11:57 NM [id number]) Posture Evaluation Position Standing Evaluation View Lateral T-Spine Posture Increased Kyphosis L-Spine Posture Increased Lordosis Shoulder Posture (R) Forward,(L) Elevated Pelvis Posture Anteriorly Tilted Hip Posture (L) Externally Rotated Knee Posture (L) Genu Valgus,(R) Genu Valgus Skin Assessment Incisional Assessment Incision Appearance/Comments Intact. Would benefit from scar mobilization to prevent adhesions Other Assessments Skin Assessment Comments Pt has some mild swelling in lateral ankle but comparable size to RLE PT-OP-K Range of Motion Start: 10/08/23 10:44 Freq: Status: Active Protocol: Document 10/08/23 10:45 NM (Rec: 10/08/23 11:57 NM [id number]) Hip Goniometric Range of Motion Hip Right Hip ROM WFL No Testing Position Supine Flexion w/Knee Flexed 100 Extension 10 Abduction 14 Internal Rotation 34 External Rotation 20 Left Hip ROM WFL No Testing Position Supine Flexion w/Knee Flexed 100 Extension 5 Abduction 14 Internal Rotation 20 External Rotation 15 Comments No pain with any active movement Hip ROM Limitations Hip ROM Limitations Soft Tissue Tightness,Muscle Weakness,Swelling Knee Goniometric Range of Motion Knee Right Knee ROM WFL Yes Patient Position Supine Flexion Active (degrees) 146 Extension Active (degrees) 5 Left Knee ROM WFL Yes Patient Position Supine Flexion Active (degrees) 130 Extension Active (degrees) 5 Knee ROM Limitations Knee ROM Limitations Soft Tissue Tightness Comments some limitation in L knee due to L hip ROM limitations PT-OP-M Strength Start: 10/08/23 10:44 Freq: Status: Active Protocol: Document 10/08/23 10:45 NM (Rec: 10/08/23 11:57 NM [id number]) Hip Strength Hip Manual Muscle Testing Right Flexion (L2) 4 Good Extension (S1) 3 Fair Abduction 4- Good- Adduction 4 Good External Rotation 4+ Good+ Internal Rotation 4+ Good+ Comments Only able to extend through ROM during hip ext, unable to withstand any resistance. Left Flexion (L2) 4- Good- Extension (S1) 3 Fair Abduction 4- Good- Adduction 4- Good- External Rotation 4- Good- Internal Rotation 4- Good- Comments Min pain with hip flex. Only able to extend through ROM during hip ext, unable to withstand any resistance. Difficulty with straight leg raise from table without ant hip pain, only able to lift 4 . Knee Strength Knee Manual Muscle Testing Right Flexion (S2) 4+ Good+ Extension (L3) 4+ Good+ Left Flexion (S2) 4- Good- Extension (L3) 4- Good- Comments No pain PT-OP-Q Treatments Start: 10/08/23 10:44 Freq: Status: Active Protocol: Document 11/12/23 09:49 NM (Rec: 11/12/23 10:30 NM [id number]) Cardio Equipment Recumbent Bicycle Duration (Minutes) 4 Resistance 4 Seat Position 2 Other warm up Gym Equipment Shuttle Recovery Leg press Details B squat Resistance 50# Shuttle Recovery Platform Stable Reps/Time 2x15 Therapeutic Exercises Standing Exercises Stairs Standing Exercise Name MAP building stairs Equipment Used no UE use, SBA Reps/Minutes 2 reps x26 steps Comments Reciprocal; for quad eccentric control Therapeutic Activity Therapeutic Activity Lifting Object in standing<>floor Reps/Minutes 3 min Comments Pt standing, then squatting to picker and sorter load and unload weighted object from floor, then standing with object close to body. Pt cued to prevent excessive spinal flex with load (5#) due to osteoporosis. Pt able to demo with multiple reptitions, decreased cueing. Transfer standing<>floor while carrying object Reps/Minutes 3 min Comments With mat under pt and chair in front for UE support/balance, pt begins in standing > placing object on chair, then transferring to floor from standing (to 1/2 kneel > tall kneel) then grabbing object and moving to floor. Then reverse to standing. For osteoporosis training and to retrain pt to get/up down from floor for ADLs. Pt able to perform with LLe leading and RLE leading. Transfer standing<>floor Reps/Minutes 3 min Comments With mat on floor and chair in front of pt for UE support/ balance, pt moving from standing into 1/2 kneel > tall kneel> short kneel> floor. Then reverse. IND for all movements Neuro Re-Education Treatment Balance Activities Eyes closed Surface unstable Reps/Duration 2x60 Comments Narrow stance on foam. Close SBA. Pt with mild sway but able to stay upright, no LOB. Arms crossed Narrow Stance Surface unstable Reps/Duration 2x60 ea Comments Pt standing on foam in narrow stance with head movement laterally then vertically. Pt demos more instability with vertical head movements, but is able to correct for any sway while demonstrating good ankle strategy. Close SBA with occasional CGA for balance Obstacle Course Details foam steps + 6 hurdles Surface stable and unstable Reps/Duration 3 reps x 20 ft ea direction Comments Pt stepping over hurdles and onto foam step stones with LLE leading. Hurdles and foam pads alternate and are variable in distance to force pt to react to different surface and obstacle. Pt is SBA and demos min to no LOB ( able to self correct) PT-OP-T Assessment and Plan Start: 10/08/23 10:44 Freq: Status: Active Protocol: Document 11/12/23 09:49 NM (Rec: 11/12/23 10:30 NM [id number]) Physical Therapy Assessment Goals Five Impairment ROM Impairment L hip IR and ER ROM limited ( 20 deg and 15 deg, respectively) Short Term Goal (STG) Pt will improve L hip IR and ER by at least 5 deg. STG Duration 3 weeks Detention Goal (LTG) Pt will improve L hip IR and ER to be within at least 5 degrees of R hip IR and ER to demonstrate improved hip ROM for gait and stairs. MET: 11/05/23- now L hip IR 35 deg, ER 22 deg LTG Duration 6 weeks Four Impairment function Impairment body mechanics, lifting due to osteoporosis Short Term Goal (STG) Pt will be educated on and demonstrate understanding of importance of good spinal/hip body mechanics during lifting objects from the ground/lower height or carrying objects due to risk of fracture with osteoporosis. MET 11/12/23 STG Duration 3 weeks Detention Goal (LTG) Pt will demonstrate safe body mechanics and maintain balance while picking up an object from the ground or a lower height and while carrying objects during at least 7/10 trials in order to decrease risk of fracture from osteoporosis and show good understanding of risks. MET 11/12/23 LTG Duration 6 weeks Three Impairment strength Impairment Current L hip flexion and abduction strength 4-/5 Short Term Goal (STG) Pt will improve L hip flexion and abduction MMT to at least 4/5 strength with 2/10 pain or less in order to demonstrate improved strength needed for gait and stairs. MET 11/05/23: hip flex MMT 4/5, abd MMT 5/5 STG Duration 3 weeks Detention Goal (LTG) Pt will improve L hip flexion and abduction MMT to at least 4+/5 strength without pain in order to demonstrate improved strength and activity tolerance. PARTIALLY MET 11/05/23: hip flex MMT 4/5 and abd MMT 5/5 LTG Duration 6 weeks Two Impairment Balance Impairment Shah score 45/56 Short Term Goal (STG) Pt will increase Shah balance score by at least 2 points in order to decrease fall risk and demonstrate improved strength and balance. MET 11/05/23: 54/56 STG Duration 3 weeks Quill Layer Goal (LTG) Pt will increase Shah balance score by at least 4 points ( MCID) in order to decrease fall risk and to demonstrate improved strength and balance. MET 11/05/23: 54/56 LTG Duration 6 weeks One Impairment function Impairment Current 6MWT = 802 m (2631 ft) Short Term Goal (STG) Pt will increase 6 MWT distance by 500 feet to demonstrate improved strength and activity tolerance. MET 11/05/23 STG Duration 3 weeks Quill Layer Goal (LTG) Pt will increase 6 MWT distance by at least 1000 ft to demonstrate improved strength and activity tolerance in order to get back to her daily 1 mile walks. MET 11/05/23: 3800 ft ambulated without AD LTG Duration 6 weeks Assessment Summary Assessment Pt tolerated tmt well and has met all goals today. She is planning to d/c next session with an HEP for independent exercise. Tmt focus on balance training and educating pt on transfering to/from floor for ADLs/while carrying objects. Pt is able to safely transfer to/from floor in various conditions with a chair for UE support and balance nearby and SBA. Pt requires cues initially for correct execution, but able to perform safely and with good body mechanics. Balance retraining using an obstacle course and unstable surfaces. Pt demos improved ability to maintain stability with decreased sway while stepping over objects and stepping onto unstable surfaces; she is SBA with occasional CGA to steady. Overall, she demos improved ankle strategy to stabilize. Pt would benefit from skilled PT to address impairments in balance and BLE strength in order to return to PLOF. Physical Therapy Plan Frequency and Duration Frequency of Treatment 1x/Week Duration of treatment (weeks) 6 Plan of Care Start Date 10/08/23 Plan of Care End Date 11/19/23 Next Visit Focus/Plan Next Note Type Discharge Summary Next Visit Plan Continue with final balance and L hip strengthening. HEP for independent exercise
--- NOTE | 2023-11-19 15:16 | PT.OTN ---
Current Diagnoses Other abnormalities of gait and mobility (11/19/23) Personal history of (healed) traumatic fracture (11/19/23) Physical Therapy Treatment Note PT-OP-A Visit Information Start: 10/08/23 10:44 Freq: Status: Active Protocol: Document 11/19/23 09:53 NM (Rec: 11/19/23 10:28 NM [id number]) Out-Patient Physical Therapy Visit Information Visit Information Visit Type Discharge Summary Visit Start Time 09:50 Visit Stop Time 10:30 Total Visit Minutes 40 Visit Number 7 Evaluation Information Evaluation Date 10/08/23 Precautions Precautions None as of date of initial evaluation (prior to 6 wks post op- posterior hip precautions) PT-OP-B Current Condition Start: 10/08/23 10:44 Freq: Status: Active Protocol: Document 10/08/23 10:45 NM (Rec: 10/08/23 11:57 NM [id number]) Current Condition History of Current Condition Onset Date 08/10/23 Current Complaints weakness, L hip discomfort/ pain, difficulty walking History of Current Condition Pt presents s/p L hip frx following a fall out of a chair. Pt reports that she was sitting in her recliner when she attempted to get up without waking her , but lost her balance and fell onto her L hip. She underwent a L hemiarthroplasty on . Pt received home health PT for several weeks and was compliant with posterior hip precautions. At this time, pt does not have any hip precautions. Currently, she is able to ambulate without an AD, but she has a cane that she keeps in the car when she travels to environments with unknown terrain. She has 1 step to enter/exit home. Prior to this fall, pt reports that she has not had any falls in several years. She was recently diagnosed with osteoporosis. Prior Treatments and Tests PT Treatment Goals Patient/Caregiver Goals Walk at least 1 mi. without pain supervisor post wave objects off of the floor Prior Functional Status Baseline Function- ADL's Independent Baseline Function- Mobility Independent Baseline Function- Gait No AD use. Walks 1 mi/day PT-OP-C Subjective Start: 10/08/23 12:22 Freq: Status: Active Protocol: Document 11/19/23 09:53 NM (Rec: 11/19/23 10:28 NM [id number]) OP-PT Subjective Patient Comments Patient Comments Pt reports that she has not had any L hip discomfort or pain. She reports mild back pain after ambulation for extended periods. She has been ambulating 1 mile every day for the past 2 weeks. PT-OP-D Balance Start: 10/08/23 10:44 Freq: Status: Active Protocol: Document 10/08/23 10:45 NM (Rec: 10/08/23 11:57 NM [id number]) OP-PT Balance Assessment Sitting Balance Static Sitting Balance Ability Normal Dynamic Sitting Balance Ability Normal Standing Balance Static Standing Balance Ability Good Dynamic Standing Balance Ability Good Balance Tests Shah Balance Test Shah Balance Test Score 45/56 Shah Impairment Rating 1 to 19% Impaired (Score 45-55 ) Marcano Fall Scale Copyright Permission PT-OP-E Functional Tests Start: 10/08/23 10:44 Freq: Status: Active Protocol: Document 10/08/23 10:45 NM (Rec: 10/08/23 11:57 NM [id number]) Functional Tests 6 Minute Walk Test Distance 802 m Device Used none Comments Antalgic; Ind;gait speed decreased with time. Dev ant hip pain >4 min Five Times Sit to Stand Test Score 12 sec Comments Mild sway, no LOB with repetition, no hands PT-OP-G Mobility & Gait Start: 10/08/23 10:44 Freq: Status: Active Protocol: Document 10/08/23 10:45 NM (Rec: 10/08/23 11:57 NM [id number]) OP Gait Assessment Gait Gait Assistance Required: Independent Able to Maintain Weight Bearing Status Yes During Gait Assistive Devices Assistive Device None,Straight Cane Gait Deviations General Gait Pattern Antalgic,Decreased Stride Length,Flexed Trunk Factors Limiting Gait Function Factors Limiting Gait Function Decreased Activity Tolerance Stair Climbing Evaluation Evaluation Level of Assist On Stairs Standby Assistance,Contact Guard Assistance Devices Stair Climbing Assistive Devices None Technique/Endurance Stair Climbing Direction Ascend and Descend Stair Climbing Technique Step to Step Number of Steps Climbed 4 Stair Climbing Set # Repetitions (reps) 1 Comments Stair Climbing Comments Able to ascend without UE use and SBA. Descends with 1 AUTO TECHNICIAN MECHANIC and CGA for steadying PT-OP-J Posture/Palpation/Skin Start: 10/08/23 10:44 Freq: Status: Active Protocol: Document 10/08/23 10:45 NM (Rec: 10/08/23 11:57 NM [id number]) Posture Evaluation Position Standing Evaluation View Lateral T-Spine Posture Increased Kyphosis L-Spine Posture Increased Lordosis Shoulder Posture (R) Forward,(L) Elevated Pelvis Posture Anteriorly Tilted Hip Posture (L) Externally Rotated Knee Posture (L) Genu Valgus,(R) Genu Valgus Skin Assessment Incisional Assessment Incision Appearance/Comments Intact. Would benefit from scar mobilization to prevent adhesions Other Assessments Skin Assessment Comments Pt has some mild swelling in lateral ankle but comparable size to RLE PT-OP-K Range of Motion Start: 10/08/23 10:44 Freq: Status: Active Protocol: Document 11/19/23 09:53 NM (Rec: 11/19/23 10:28 NM [id number]) Hip Goniometric Range of Motion Hip Left Hip ROM WFL No Testing Position Supine Flexion w/Knee Flexed 110 Extension 5 Abduction 14 Internal Rotation 35 External Rotation 22 Comments No pain with any active movement IE: flex 100 deg Abd 14 deg IR 20 deg ER 15 deg PT-OP-M Strength Start: 10/08/23 10:44 Freq: Status: Active Protocol: Document 11/19/23 09:53 NM (Rec: 11/19/23 10:28 NM [id number]) Hip Strength Hip Manual Muscle Testing Right Flexion (L2) 4 Good Extension (S1) 4+ Good+ Abduction 4+ Good+ Adduction 4 Good External Rotation 4+ Good+ Internal Rotation 4+ Good+ Comments Only able to extend through ROM during hip ext, unable to withstand any resistance. Left Flexion (L2) 4+ Good+ Extension (S1) 4+ Good+ Abduction 4+ Good+ Adduction 4+ Good+ External Rotation 4 Good Internal Rotation 4+ Good+ Comments IE: Flex 4-/5 Ext 3/5 Abd 4-/5 Add 4-/5 ER 4-/5 IR 4-/5 Knee Strength Knee Manual Muscle Testing Left Flexion (S2) 4- Good- Extension (L3) 4- Good- Comments No pain PT-OP-Q Treatments Start: 10/08/23 10:44 Freq: Status: Active Protocol: Document 11/19/23 09:53 NM (Rec: 11/19/23 10:28 NM [id number]) Therapeutic Exercises Sitting Exercises Hip ER Side bilateral Resistance [place] green tb Equipment Used around ankle Reps/Minutes 2x10 Comments cues for correct execution, set up for HEP Standing Exercises Marching Standing Exercise Name alternating Side bilateral Resistance lvl 3 [place] green tb Equipment Used ballerina bar for UE support Reps/Minutes 10x2x3 Comments cues for correct execution, HEP set up Side steps Side bilateral Resistance [place] green tb Equipment Used around ankles; UE support ballerina bar Reps/Minutes 2x15 ea direction Comments cues to flower picker feet with step , control against resistance; glute activatio Squats Standing Exercise Name STS Side bilateral Resistance 10# tball Equipment Used chair for support (18) Reps/Minutes 1x8 Comments cues for slow descent, limit knee valgus Therapeutic Activity Therapeutic Activity Dressing Name Simulate putting on pants Reps/Minutes 2 min Comments Pt reports concern about balance and safety while donning pants. Pt seated on chair with hula hoop to simulate pants. Pt heather L leg first, then R leg > reverse to doff. Pt and PT discussed benefits of LE dressing in seated position vs standing. Transfer standing<>floor Reps/Minutes 6 min Comments With mat on floor and chair in front of pt for UE support/ balance, pt moving from standing into 1/2 kneel > tall kneel> short kneel> floor. Then reverse. IND for all movements. RLE leading for control upon descent and to ascend. PT-OP-T Assessment and Plan Start: 10/08/23 10:44 Freq: Status: Active Protocol: Document 11/19/23 09:53 NM (Rec: 11/19/23 10:28 NM [id number]) Physical Therapy Assessment Goals Five Impairment ROM Impairment L hip IR and ER ROM limited ( 20 deg and 15 deg, respectively) Short Term Goal (STG) Pt will improve L hip IR and ER by at least 5 deg. STG Duration 3 weeks Snf Goal (LTG) Pt will improve L hip IR and ER to be within at least 5 degrees of R hip IR and ER to demonstrate improved hip ROM for gait and stairs. MET: 11/05/23- now L hip IR 35 deg, ER 22 deg LTG Duration 6 weeks Four Impairment function Impairment body mechanics, lifting due to osteoporosis Short Term Goal (STG) Pt will be educated on and demonstrate understanding of importance of good spinal/hip body mechanics during lifting objects from the ground/lower height or carrying objects due to risk of fracture with osteoporosis. MET 11/12/23 STG Duration 3 weeks Cane Flume Feeding Machine Operator Goal (LTG) Pt will demonstrate safe body mechanics and maintain balance while picking up an object from the ground or a lower height and while carrying objects during at least 7/10 trials in order to decrease risk of fracture from osteoporosis and show good understanding of risks. MET 11/12/23 LTG Duration 6 weeks Three Impairment strength Impairment Current L hip flexion and abduction strength 4-/5 Short Term Goal (STG) Pt will improve L hip flexion and abduction MMT to at least 4/5 strength with 2/10 pain or less in order to demonstrate improved strength needed for gait and stairs. MET 11/05/23: hip flex MMT 4/5, abd MMT 5/5 STG Duration 3 weeks Cane Flume Feeding Machine Operator Goal (LTG) Pt will improve L hip flexion and abduction MMT to at least 4+/5 strength without pain in order to demonstrate improved strength and activity tolerance. 11/19/23: MET 4+/5 hip flex and abd MMT PARTIALLY MET 11/05/23: hip flex MMT 4/5 and abd MMT 5/5 LTG Duration 6 weeks Two Impairment Balance Impairment Shah score 45/56 Short Term Goal (STG) Pt will increase Shah balance score by at least 2 points in order to decrease fall risk and demonstrate improved strength and balance. MET 11/05/23: 54/56 STG Duration 3 weeks Snf Goal (LTG) Pt will increase Shah balance score by at least 4 points ( MCID) in order to decrease fall risk and to demonstrate improved strength and balance. MET 11/05/23: 54/56 LTG Duration 6 weeks One Impairment function Impairment Current 6MWT = 802 m (2631 ft) Short Term Goal (STG) Pt will increase 6 MWT distance by 500 feet to demonstrate improved strength and activity tolerance. MET 11/05/23 STG Duration 3 weeks Snf Goal (LTG) Pt will increase 6 MWT distance by at least 1000 ft to demonstrate improved strength and activity tolerance in order to get back to her daily 1 mile walks. MET 11/05/23: 3800 ft ambulated without AD LTG Duration 6 weeks Progress Towards Goals Progress Towards Goals Goals Met Progress Comments Pt has met 5/5 goals Assessment Summary Assessment Tmt focus today on L hip/knee strengthening and mobility for independent exercise. Pt performed weighted STS/squat, resisted hip ER, side steps, and standing march with band. All exercises issued as HEP. Pt requires cues for correct execution and cues for hip hinge during squat/side steps to maximize glute activation for improved stability and strength. Pt performed standing <>floor transfers in order to be able to clean her air filter at home. She is able to safely demonstrate transfer using a chair for UE support and leading with either LE during transfer. Pt reports difficulty with donning pants in standing, so PT instructed pt on donning/ doffing pants in sitting position for safety using hula hoop to simulate pants. Pt demos improved tolerance for exercises and ambulation since IE. She reports no L hip pain or discomfort with ambulation at any distance any more and is back to her PLOF. Pt is safe for discharge to independent exercise. Physical Therapy Plan Frequency and Duration Frequency of Treatment 1x/Week Duration of treatment (weeks) 6 Plan of Care Start Date 10/08/23 Plan of Care End Date 11/19/23 Therapeutic Interventions Therapeutic Interventions Balance Training,Coordination Training,Gait Training,Home Exercise Program,Joint Mobilizations,Manual Therapy, Neuromuscular Re-education, Patient/Caregiver Education, Self-Care/Home Management,Soft Tissue Mobilization, Therapeutic Activities, Therapeutic Exercises Modalities Cold Pack/Ice Massage,Electric Stimulation,Hot Packs, Iontophoresis,Ultrasound Other Therapeutic Interventions Biomechanics training Fall safety training Discharge Physical Therapy Discharge Reasons Goals Met Discharge Comments Pt has met 5/5 goals and is able to perform all ADLs/IADLs and recreational activities without limitation Next Visit Focus/Plan Next Note Type Discharge Summary Next Visit Plan HEP for independent exercise. Discharge from OP PT
--- NOTE | 2023-11-19 15:20 | PT.OPDS ---
Current Diagnoses Other abnormalities of gait and mobility (11/19/23) Personal history of (healed) traumatic fracture (11/19/23) Visit Care Team Role Provider Type Jaden Azevedo MD Family Provider Non-Staff Primary Care Provider Specialty: Family Practice Address: [address] [facility], [address], [place], [address] Email: Ayana Bal MD Attending Provider Non-Staff Referring Provider Specialty: Medical Address: [address] [facility] [address], [place], [address] Email: Visit Number Visit Number 7 Discharge Summary PT-OP-B Current Condition Start: 10/08/23 10:44 Freq: Status: Active Protocol: Document 10/08/23 10:45 NM (Rec: 10/08/23 11:57 NM [id number]) Current Condition History of Current Condition Onset Date 08/10/23 Current Complaints weakness, L hip discomfort/ pain, difficulty walking History of Current Condition Pt presents s/p L hip frx following a fall out of a chair. Pt reports that she was sitting in her recliner when she attempted to get up without waking her , but lost her balance and fell onto her L hip. She underwent a L hemiarthroplasty on . Pt received home health PT for several weeks and was compliant with posterior hip precautions. At this time, pt does not have any hip precautions. Currently, she is able to ambulate without an AD, but she has a cane that she keeps in the car when she travels to environments with unknown terrain. She has 1 step to enter/exit home. Prior to this fall, pt reports that she has not had any falls in several years. She was recently diagnosed with osteoporosis. Prior Treatments and Tests PT Treatment Goals Patient/Caregiver Goals Walk at least 1 mi. 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 Walks 1 mi/day PT-OP-C Subjective Start: 10/08/23 12:22 Freq: Status: Active Protocol: Document 11/19/23 09:53 NM (Rec: 11/19/23 10:28 NM [id number]) OP-PT Subjective Patient Comments Patient Comments Pt reports that she has not had any L hip discomfort or pain. She reports mild back pain after ambulation for extended periods. She has been ambulating 1 mile every day for the past 2 weeks. PT-OP-D Balance Start: 10/08/23 10:44 Freq: Status: Active Protocol: Document 10/08/23 10:45 NM (Rec: 10/08/23 11:57 NM [id number]) OP-PT Balance Assessment Sitting Balance Static Sitting Balance Ability Normal Dynamic Sitting Balance Ability Normal Standing Balance Static Standing Balance Ability Good Dynamic Standing Balance Ability Good Balance Tests Shah Balance Test Shah Balance Test Score 45/56 Shah Impairment Rating 1 to 19% Impaired (Score 45-55 ) Marcano Fall Scale Copyright Permission PT-OP-E Functional Tests Start: 10/08/23 10:44 Freq: Status: Active Protocol: Document 10/08/23 10:45 NM (Rec: 10/08/23 11:57 NM [id number]) Functional Tests 6 Minute Walk Test Distance 802 m Device Used none Comments Antalgic; Ind;gait speed decreased with time. Dev ant hip pain >4 min Five Times Sit to Stand Test Score 12 sec Comments Mild sway, no LOB with repetition, no hands PT-OP-G Mobility & Gait Start: 10/08/23 10:44 Freq: Status: Active Protocol: Document 10/08/23 10:45 NM (Rec: 10/08/23 11:57 NM [id number]) OP Gait Assessment Gait Gait Assistance Required: Independent Able to Maintain Weight Bearing Status Yes During Gait Assistive Devices Assistive Device None,Straight Cane Gait Deviations General Gait Pattern Antalgic,Decreased Stride Length,Flexed Trunk Factors Limiting Gait Function Factors Limiting Gait Function Decreased Activity Tolerance Stair Climbing Evaluation Evaluation Level of Assist On Stairs Standby Assistance,Contact Guard Assistance Devices Stair Climbing Assistive Devices None Technique/Endurance Stair Climbing Direction Ascend and Descend Stair Climbing Technique Step to Step Number of Steps Climbed 4 Stair Climbing Set # Repetitions (reps) 1 Comments Stair Climbing Comments Able to ascend without UE use and SBA. Descends with 1 WOOL SORTER and CGA for steadying PT-OP-J Posture/Palpation/Skin Start: 10/08/23 10:44 Freq: Status: Active Protocol: Document 10/08/23 10:45 NM (Rec: 10/08/23 11:57 NM [id number]) Posture Evaluation Position Standing Evaluation View Lateral T-Spine Posture Increased Kyphosis L-Spine Posture Increased Lordosis Shoulder Posture (R) Forward,(L) Elevated Pelvis Posture Anteriorly Tilted Hip Posture (L) Externally Rotated Knee Posture (L) Genu Valgus,(R) Genu Valgus Skin Assessment Incisional Assessment Incision Appearance/Comments Intact. Would benefit from scar mobilization to prevent adhesions Other Assessments Skin Assessment Comments Pt has some mild swelling in lateral ankle but comparable size to RLE PT-OP-K Range of Motion Start: 10/08/23 10:44 Freq: Status: Active Protocol: Document 11/19/23 09:53 NM (Rec: 11/19/23 10:28 NM [id number]) Hip Goniometric Range of Motion Hip Left Hip ROM WFL No Testing Position Supine Flexion w/Knee Flexed 110 Extension 5 Abduction 14 Internal Rotation 35 External Rotation 22 Comments No pain with any active movement IE: flex 100 deg Abd 14 deg IR 20 deg ER 15 deg PT-OP-M Strength Start: 10/08/23 10:44 Freq: Status: Active Protocol: Document 11/19/23 09:53 NM (Rec: 11/19/23 10:28 NM [id number]) Hip Strength Hip Manual Muscle Testing Right Flexion (L2) 4 Good Extension (S1) 4+ Good+ Abduction 4+ Good+ Adduction 4 Good External Rotation 4+ Good+ Internal Rotation 4+ Good+ Comments Only able to extend through ROM during hip ext, unable to withstand any resistance. Left Flexion (L2) 4+ Good+ Extension (S1) 4+ Good+ Abduction 4+ Good+ Adduction 4+ Good+ External Rotation 4 Good Internal Rotation 4+ Good+ Comments IE: Flex 4-/5 Ext 3/5 Abd 4-/5 Add 4-/5 ER 4-/5 IR 4-/5 Knee Strength Knee Manual Muscle Testing Left Flexion (S2) 4- Good- Extension (L3) 4- Good- Comments No pain PT-OP-T Assessment and Plan Start: 10/08/23 10:44 Freq: Status: Active Protocol: Document 11/19/23 09:53 NM (Rec: 11/19/23 10:28 NM [id number]) Physical Therapy Assessment Goals Five Impairment ROM Impairment L hip IR and ER ROM limited ( 20 deg and 15 deg, respectively) Short Term Goal (STG) Pt will improve L hip IR and ER by at least 5 deg. STG Duration 3 weeks Skilled Nursing Goal (LTG) Pt will improve L hip IR and ER to be within at least 5 degrees of R hip IR and ER to demonstrate improved hip ROM for gait and stairs. MET: 11/05/23- now L hip IR 35 deg, ER 22 deg LTG Duration 6 weeks Four Impairment function Impairment body mechanics, lifting due to osteoporosis Short Term Goal (STG) Pt will be educated on and demonstrate understanding of importance of good spinal/hip body mechanics during lifting objects from the ground/lower height or carrying objects due to risk of fracture with osteoporosis. MET 11/12/23 STG Duration 3 weeks Skilled Nursing Goal (LTG) Pt will demonstrate safe body mechanics and maintain balance while picking up an object from the ground or a lower height and while carrying objects during at least 7/10 trials in order to decrease risk of fracture from osteoporosis and show good understanding of risks. MET 11/12/23 LTG Duration 6 weeks Three Impairment strength Impairment Current L hip flexion and abduction strength 4-/5 Short Term Goal (STG) Pt will improve L hip flexion and abduction MMT to at least 4/5 strength with 2/10 pain or less in order to demonstrate improved strength needed for gait and stairs. MET 11/05/23: hip flex MMT 4/5, abd MMT 5/5 STG Duration 3 weeks Hog Ringer Goal (LTG) Pt will improve L hip flexion and abduction MMT to at least 4+/5 strength without pain in order to demonstrate improved strength and activity tolerance. 11/19/23: MET 4+/5 hip flex and abd MMT PARTIALLY MET 11/05/23: hip flex MMT 4/5 and abd MMT 5/5 LTG Duration 6 weeks Two Impairment Balance Impairment Shah score 45/56 Short Term Goal (STG) Pt will increase Shah balance score by at least 2 points in order to decrease fall risk and demonstrate improved strength and balance. MET 11/05/23: 54/56 STG Duration 3 weeks Skilled Nursing Goal (LTG) Pt will increase Shah balance score by at least 4 points ( MCID) in order to decrease fall risk and to demonstrate improved strength and balance. MET 11/05/23: 54/56 LTG Duration 6 weeks One Impairment function Impairment Current 6MWT = 802 m (2631 ft) Short Term Goal (STG) Pt will increase 6 MWT distance by 500 feet to demonstrate improved strength and activity tolerance. MET 11/05/23 STG Duration 3 weeks Skilled Nursing Goal (LTG) Pt will increase 6 MWT distance by at least 1000 ft to demonstrate improved strength and activity tolerance in order to get back to her daily 1 mile walks. MET 11/05/23: 3800 ft ambulated without AD LTG Duration 6 weeks Progress Towards Goals Progress Towards Goals Goals Met Progress Comments Pt has met 5/5 goals Assessment Summary Assessment Pt has been seen 6x in clinic since IE on 10/08/23 s/p L hip fracture. Pt has been very compliant with performing HEP and ambulation program outside of PT sessions. Pt has met 5/ 5 goals regarding ambulation, L hip strength and ROM, balance, and education about safety/posture with osteoporosis. Pt is also able to demonstrate improved awareness of safety during transfers to/from floor, while lifting and carrying objects, and during LE dressing. Since IE, pt demos improved tolerance for activity; she is now back to PLOF with her daily ambulation distance. She reports no L hip pain or discomfort with ambulation at any distance or with any activity. Pt is now 4+/5 strength for all hip motions with exception of hip ER at 4/ 5. Her L hip ROM is comparable to the R hip. Her Shah balance score improved from 45 /56 to 54/56, indicating a low fall risk. Pt reports that she is able to perform all ADLs/IADLs without restriction or pain. Pt is ready to discharge to independent exercise with HEP. Issued HEP: STS, resisted hip ER, resisted side step with UE support, standing march with UE support. PT and pt are agreeable to discharge. PT instructed pt to follow up with PCP if there are any changes or for a new PT referral. Physical Therapy Plan Frequency and Duration Frequency of Treatment 1x/Week Duration of treatment (weeks) 6 Plan of Care Start Date 10/08/23 Plan of Care End Date 11/19/23 Therapeutic Interventions Therapeutic Interventions Balance Training,Coordination Training,Gait Training,Home Exercise Program,Joint Mobilizations,Manual Therapy, Neuromuscular Re-education, Patient/Caregiver Education, Self-Care/Home Management,Soft Tissue Mobilization, Therapeutic Activities, Therapeutic Exercises Modalities Cold Pack/Ice Massage,Electric Stimulation,Hot Packs, Iontophoresis,Ultrasound Other Therapeutic Interventions Biomechanics training Fall safety training Discharge Physical Therapy Discharge Reasons Goals Met Discharge Comments Pt has met 5/5 goals and is able to perform all ADLs/IADLs and recreational activities without limitation Next Visit Focus/Plan Next Note Type Discharge Summary Next Visit Plan HEP for independent exercise. Discharge from OP PT
== END 2023-11-26 15:05 | disposition home or self-care (01) ==
LOC: PHYS 09:45
PROVIDERS: Family Provider Family Medicine; PCP Family Medicine; Referring Provider Family Medicine; Visit Provider Family Medicine
DX: Z87.81 Personal history of (healed) traumatic fracture (principal); R26.89 Other abnormalities of gait and mobility
CPT/HCPCS: 97110; 97112; 97116; 97162; 97530

== ENCOUNTER 2025-04-19 05:08 | Observation (INO) | payer MEDICARE, OTHER, SELFPAY ==
[2023-08-10 09:09] VITALS: BMI 24.0
[2025-04-19] VITALS (22 sets, daily range): BP systolic 100–161; BP diastolic 45–81; PULSE 52–72; RESP 12–39; TEMP 36.2–36.4; O2SAT 95–98; BMI 20.9
--- NOTE | 2025-04-19 05:19 | DI.RAD.S_ITS ---
PROCEDURE: XR CHEST 1V INDICATIONS: Chest Pain TECHNIQUE: One view of the chest was acquired. COMPARISON: [facility], CR, XR CHEST 1V, 08/11/2023, 11:00. FINDINGS: Surgical changes and devices: None. Lungs and pleura: Lungs are clear. No pleural effusions or pneumothorax. Mediastinum: Mediastinal contours appear normal. Heart size is normal. Bones and chest wall: No suspicious bony lesions. Overlying soft tissues appear unremarkable. IMPRESSION: No acute cardiopulmonary pathology. No significant discrepancies . Dictated by: Mathieu Hussein M.D. on 04/19/2025 at 9:10 Approved by: Mathieu Hussein M.D. on 04/19/2025 at 9:11
--- NOTE | 2025-04-19 05:26 | EKG_ITS ---
[facility] [address] [place] [address] Test Date: 2025-04-19 Pat Name: Flakita Gutiérrez Department: 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
[2025-04-19 05:30] LABS: INR 0.9 (0.9-1.3); Prothrombin Time 10.5 SECONDS (9.4-12.5)
[2025-04-19 05:33] LABS: Add Manual Diff / Slide Review NO; Basophils Absolute Auto 100 /uL (0-100); Basophils Percent Auto 1.1 % (0-2); Eosinophils Absolute Auto 200 /uL (0-450); Eosinophils Percent Auto 4.1 % (2-4); Hematocrit 41.3 % (36-46); Hemoglobin 13.9 g/dL (12.0-16.0); Lymphocytes Absolute Auto 1400 /uL (1100-4500); Lymphocytes Percent Auto 29.3 % (25-40); Mean Corpuscular HGB Conc 33.6 % (30-36); Mean Corpuscular Hemoglobin 30.3 PG (26-34); Mean Corpuscular Volume 90.2 fL (80-100); Monocytes Absolute Auto 800 /uL (0-900); Monocytes Percent Auto 15.7 % (3-14); Neutrophils Absolute Auto 2400 /uL (1500-7000); Neutrophils Percent Auto 49.8 % (50-75); PTT Partial Thromboplastin Tim 37 SECONDS (25.1-36.5); Platelet Count 83 X10^3/uL (150-400); Red Blood Cell Count 4.58 X10^6/uL (4.0-5.2); White Blood Cell Count 4.8 X10^3/uL (4.5-11.0)
[2025-04-19 05:38] LABS: Lactate (Lactic Acid) 0.8 mmol/L (0.7-2.1)
[2025-04-19 05:39] LABS: Alanine Aminotransferase 19 IU/L (<35); Albumin 4.1 g/dL (3.5-5.0); Albumin Globulin Ratio 1.6 (1.0-2.8); Alkaline Phosphatase 71 U/L (38-126); Aspartate Aminotransferase 31 IU/L (14-36); BUN Creatinine Ratio 33.3 (6-22); Bilirubin Total 0.8 mg/dL (0.2-1.3); Blood Urea Nitrogen 25 mg/dL (7-17); Carbon Dioxide 28 mmol/L (22-32); Chloride 103 mmol/L (98-107); Creatine Kinase 87 U/L (30-135); Estimated Glomerular Filt Rate > 60 mL/min (>60); Globulin 2.5 g/dL (1.7-4.1); Glucose 107 mg/dL (70-99); HEMOLYSIS 16 (0-50); Lipase 97 U/L (23-300); Potassium 3.9 mmol/L (3.4-5.1); Sodium 136 mmol/L (137-145); Total Protein 6.6 g/dL (6.3-8.2)
[2025-04-19 05:50] LABS: NT-proBNP (BNP-Adult 18+) 687 pg/mL (<450); Troponin I < 0.012 ng/mL (0.01-0.034)
--- NOTE | 2025-04-19 07:32 | ED_ITS ---
HPI - Dizziness General Chief Complaint: Dizziness Stated Complaint: Dizziness Time Seen by Provider: 04/19/25 07:32 Source: patient and EMS Mode of arrival: EMS Limitations: no limitations History of Present Illness HPI Narrative: 85-year-old female history of thrombocytopenia, dyslipidemia, hypertension presents with complaint of dizziness. Patient states she woke up sometime between 3 or 4:00 a.m. this morning to use the bathroom was able to get to the bathroom but noticed she felt very dizzy she describes as sort of a spinning sensation. She does not feel like she was going to pass out. She lays flat and with her head still it is improved if she moves it side to side or tries to sit forward it has worsened. She has not had similar symptoms in the past. States it is starting to improve at this time she was able to come forward a little bit. She denies any headaches, no sudden vision changes, no nausea or vomiting. No chest pain, no shortness of breath. Denies any new issues with bowel movements or urination. Denies any numbness tingling weakness of her extremities. States has a history of osteoporosis, hypertension, dyslipidemia does not take any aspirin or thinners. Has a history of hysterectomy, repair of hip fracture and prior elbow fracture. No known drug allergies. No tobacco alcohol or recreational drugs. Follows with Dr. Azevedo in [place]. Patient lives locally has 2 daughters at bedside. Related Data Home Medications Medication Instructions Recorded Confirmed alendronate 70 mg tablet (Fosamax) 70 mg PO QWEEK 11/17/21 04/19/25 propranolol 60 mg capsule,24 60 mg PO DAILY 11/17/21 04/19/25 hr,extended release calcium citrate 250 mg PO DAILY 08/10/23 04/19/25 cholecalciferol (vitamin D3) 50 50 mcg PO DAILY 08/10/23 04/19/25 mcg (2,000 unit) capsule magnesium oxide 400 mg (241.3 mg 400 mg PO DAILY 08/10/23 04/19/25 magnesium) tablet multivitamin with minerals-folic 2 tab PO DAILY 08/10/23 04/19/25 acid 120 mcg chewable tablet (Adult Multivitamin Gummies) rosuvastatin 5 mg tablet 5 mg PO DAILY 08/10/23 04/19/25 amlodipine 2.5 mg tablet 2.5 mg PO DAILY 04/19/25 04/19/25 Allergies Allergy/AdvReac Type Severity Reaction Status Date / Time No Known Drug Allergies Allergy Unverified 11/17/21 11:25 Review of Systems Review of Systems ROS Unobtainable: All systems reviewed & are unremarkable except as noted in HPI and below Patient History Social History household members: spouse Smoking Status: Never smoker alcohol intake: never Smoking Status: Never smoker Exam Narrative Exam Narrative: GEN: well nourished, well appearing female, alert and oriented x 3, patient appears to be in mild distress. HEENT: Atraumatic, pupils are equal round reactive to light, extraocular movements are intact, no nystagmus, nares are clear, TMs are clear with no fluid, there is no conjunctival pallor. Throat is clear without any exudates, erythema, tonsillar enlargement or uvular deviation, no facial droop HEART: Regular rate and rhythm without murmur, clicks, rubs. Pulses are equal in upper and lower extremities LUNGS:Lungs clear to auscultation, no wheezes, rales, crackles, chest moves symmetrically ABD:bowel sounds normal, soft, non-tender, no guarding, rebound, rigidity, no masses noted, no hepatosplenomegaly :No CVA tenderness MSCL: Non-tender, no muscle atrophy, muscles strength 5/5 upper and lower extremities, full range of motion. NEURO:CN 2-12 intact, sensation normal, finger nose finger test normal, heel hollis test normal. No dysarthria. No aphasia. Initial Vital Signs Initial Vital Signs: Vital Signs Pulse Rate 60 04/19/25 05:11 Blood Pressure 145/69 H 04/19/25 05:11 Pulse Oximetry 96 04/19/25 05:11 Course Orders Ordered: ED Orders 04/19/25 07:54 CT head/brain wo con Stat Acetazolamide (Acetazolamide 250 Mg Tablet) 125 mg PO BID [facility] Last Admin: 04/19/25 13:33 Dose: 125 mg Documented By: TLS Atorvastatin Calcium (Atorvastatin 20 Mg Tablet) 10 mg PO BEDTIME [facility]ACQU[facility] Famotidine (Famotidine 20 Mg Tablet) 10 mg PO DAILY [facility]AC[facility] Last Admin: 04/19/25 13:32 Dose: 10 mg Documented By: TLS Sodium Chloride (Normal Saline 0.9%) 1,000 mls @ 50 mls/hr IV CONT [facility] Last Admin: 04/19/25 13:34 Dose: 50 mls/hr Documented By: TLS Meclizine HCl (Meclizine Hcl 12.5 Mg Tablet) 12.5 mg PO TID PRN PRN Reason: Vertigo Last Admin: 04/19/25 13:32 Dose: 12.5 mg Documented By: TLS Methylprednisolone (Methylprednisolone 40 Mg/Ml Vial) 2 mg IV Q12HR [facility] Last Admin: 04/19/25 13:33 Dose: 2 mg Documented By: TLS Naloxone HCl (Naloxone 0.4 Mg/Ml Vial) 0.2 mg IV Q2MIN PRN PRN Reason: Opiate Reversal Oxycodone/Acetaminophen (Oxycodone/Acetaminophen 5/325 Tablet) 1 tab PO Q4H PRN PRN Reason: Pain, Mild (1-3) Propranolol HCl (Propranolol 10 Mg Tablet) 30 mg PO BID [facility] Last Admin: 04/19/25 13:33 Dose: 30 mg Documented By: TLS Pseudoephedrine HCl (Pseudoephedrine 30 Mg Tablet) 30 mg PO Q6HR [facility] Last Admin: 04/19/25 13:33 Dose: 30 mg Documented By: TLS Discontinued Medications Aspirin (Aspirin 81 Mg Chew Tab) 324 mg PO NOW ONE Stop: 04/19/25 05:19 Last Admin: 04/19/25 07:13 Dose: Not Given Documented By: SB Lorazepam (Lorazepam 0.5 Mg Tablet) 0.5 mg PO NOW ONE Stop: 04/19/25 10:09 Last Admin: 04/19/25 10:18 Dose: 0.5 mg Documented By: SB Meclizine HCl (Meclizine Hcl 12.5 Mg Tablet) 50 mg PO NOW ONE Stop: 04/19/25 07:55 Last Admin: 04/19/25 08:01 Dose: 50 mg Documented By: SB Ondansetron HCl (Ondansetron 4 Mg/2 Ml Inj) 4 mg IV NOW ONE Stop: 04/19/25 09:32 Last Admin: 04/19/25 09:34 Dose: 4 mg Documented By: SB Vital Signs Vital signs: Vital Signs - 8 hr 04/19/25 08:05 04/19/25 08:26 04/19/25 08:30 Pulse Rate 70 69 54 L Respiratory Rate 20 24 23 Blood Pressure 161/70 H 160/74 H 156/70 H Pulse Oximetry 97 98 98 Oxygen Delivery Method 04/19/25 08:54 04/19/25 09:00 04/19/25 09:30 Pulse Rate 72 57 L 57 L Respiratory Rate 20 18 22 Blood Pressure 159/79 H 142/71 H 152/81 H Pulse Oximetry 97 97 98 Oxygen Delivery Method 04/19/25 10:00 04/19/25 10:30 04/19/25 10:31 Pulse Rate 54 L 52 L Respiratory Rate 20 32 H Blood Pressure 157/68 H 126/59 L Pulse Oximetry 97 96 Oxygen Delivery Method Room Air 04/19/25 10:31 04/19/25 11:01 Pulse Rate 53 L 62 Respiratory Rate 39 H 18 Blood Pressure Pulse Oximetry 97 98 Oxygen Delivery Method MDM - Dizziness Lab Data 04/19/25 05:15 04/19/25 05:15 Labs: Lab Results 04/19/25 Range/Units 05:15 WBC 4.8 (4.5-11.0) X10^3/uL RBC 4.58 (4.0-5.2) X10^6/uL Hgb 13.9 (12.0-16.0) g/dL Hct 41.3 (36-46) % MCV 90.2 (80-100) fL MCH 30.3 (26-34) PG MCHC 33.6 (30-36) % RDW 14.0 (11.6-14.8) % Plt Count 83 L (150-400) X10^3/uL Neut % (Auto) 49.8 L (50-75) % Lymph % (Auto) 29.3 (25-40) % [place] % (Auto) 15.7 H (3-14) % Eos % (Auto) 4.1 H (2-4) % Baso % (Auto) 1.1 (0-2) % Neut # (Auto) 2400 (0934-8977) /uL Lymph # (Auto) 1400 (6010-9138) /uL [place] # (Auto) 800 (0-900) /uL Eos # (Auto) 200 (0-450) /uL Baso # (Auto) 100 (0-100) /uL PT 10.5 (9.4-12.5) SECONDS INR 0.9 (0.9-1.3) APTT 37 H (25.1-36.5) SECONDS Sodium 136 L (137-145) mmol/L Potassium 3.9 (3.4-5.1) mmol/L Chloride 103 (98-107) mmol/L Carbon Dioxide 28 (22-32) mmol/L BUN 25 H (7-17) mg/dL Creatinine 0.75 (0.52-1.04) mg/dL Estimated GFR > 60 (>60) mL/min BUN/Creatinine Ratio 33.3 H (6-22) Glucose 107 H (70-99) mg/dL Lactate 0.8 (0.7-2.1) mmol/L Calcium 9.0 (8.4-10.2) mg/dL Magnesium 2.0 (1.6-2.3) mg/dL Total Bilirubin 0.8 (0.2-1.3) mg/dL AST 31 (14-36) IU/L ALT 19 (<35) IU/L Alkaline Phosphatase 71 (38-126) U/L Total Creatine Kinase 87 (30-135) U/L Troponin I < 0.012 (0.01-0.034) ng/mL NT-Pro-B Natriuret Pep 687 H (<450) pg/mL Total Protein 6.6 (6.3-8.2) g/dL Albumin 4.1 (3.5-5.0) g/dL Globulin 2.5 (1.7-4.1) g/dL Albumin/Globulin Ratio 1.6 (1.0-2.8) Lipase 97 (23-300) U/L ECG Data Attestation: I personally reviewed and interpreted this ECG as follows: Interpretation: Sinus bradycardia rate of 55 [place] 184 QRS of 92 QTC 438, no acute ST elevation depression noted. MDM Narrative Medical decision making narrative: Labs show normal white count, hemoglobin, platelets are 83 patient has been thrombocytopenic in the past. She was slightly improved from priors. Chemistry shows sodium 136 BUN 25 otherwise normal electrolytes, creatinine of 0.75 glucose of 107 lactate is 0.8 LFTs are negative with a troponin less than 0.012 and a BNP of 687. EKG shows sinus bradycardia Chest x-ray mild chronic interstitial prominence no overt edema or focal consolidation on overnight read. Head CT shows no acute intracranial pathology Patient has an echo from 2021 which showed normal left ventricular thickness, size, wall motion systolic function with the EF 55-60%, normal right ventricular size and function no significant valvular abnormalities. 85-year-old female with vertigo like symptoms that she noted upon awakening has not had prior episodes in the past. Neurologic exam is normal, workup including labs EKG and chest x-ray shows no acute change. Head CT shows no acute change. Suspicion for stroke is quite low. She notes improvement of symptoms over time. Discussed with family can not completely rule out stroke but my suspicion is fairly low. Patient had meclizine around 0800, was feeling improved. Attemped ambulation trial returned to the bed and immediately threw up. Patient had Zofran and some additional Ativan. She was feeling a little bit improved attempted again but failed ambulation trial. Spoke with Dr. Maher about observation for vertigo and he accepts. Discharge Plan Departure Patient Disposition: Admitted as Observation Clinical Impression: Vertigo, Thrombocytopenia Admit Date/Time: 04/19/25 11:26 Admit Provider: Kalia Maher
--- NOTE | 2025-04-19 07:54 | DI.CT.S_ITS ---
PROCEDURE: CT HEAD/BRAIN WO CON INDICATIONS: vertigo symptoms TECHNIQUE: Noncontrast 4.5 mm thick angled axial sections acquired from the foramen magnum to the vertex, with coronal and sagittal reformats. For radiation dose reduction, the following was used: automated exposure control, adjustment of mA and/or kV according to patient size. COMPARISON: None. FINDINGS: Image quality: Diagnostic CSF spaces: Basal cisterns are patent. Lateral ventricles are symmetric. Volume: Vascular calcifications. Periventricular white matter disease is commonly seen with chronic microangiopathy. Volume loss is present. These findings are [id number] Brain: No acute hemorrhage. No gross loss of verma-white differentiation. Chronic right tentorial calcification is present. Craniofacial structures: No significant paranasal sinus opacity. IMPRESSION: No acute intracranial pathology. If there is high concern for parenchymal pathology, consider further evaluation with MRI. Dictated by: Juan Carlos Villarreal M.D. on 04/19/2025 at 8:37 Approved by: Juan Carlos Villarreal M.D. on 04/19/2025 at 8:37
[2025-04-19] MEDS: MECLIZINE HCL 12.5 MG TABLET 50 MG PO (08:01)
[2025-04-19] MEDS: ONDANSETRON 4 MG/2 ML INJ IV (09:34)
[2025-04-19] MEDS: LORazepam 0.5 MG TABLET PO (10:18)
[2025-04-19] MEDS: MECLIZINE HCL 12.5 MG TABLET PO (13:32)
[2025-04-19] MEDS: FAMOTIDINE 20 MG TABLET 10 MG PO (13:32)
[2025-04-19] MEDS: PROPRANOLOL 10 MG TABLET 30 MG PO ×2 (13:33→20:59)
[2025-04-19] MEDS: PSEUDOEPHEDRINE 30 MG TABLET PO ×2 (13:33→17:42)
[2025-04-19] MEDS: acetaZOLAMIDE 250 MG TABLET 125 MG PO ×2 (13:33→20:59)
[2025-04-19] MEDS: SODIUM CHLORIDE 0.9% 1,000 ML 50 ML IV (13:34)
--- NOTE | 2025-04-19 17:55 | P.HP_ITS ---
History of Present Illness History of Present Illness Date Patient Seen: 04/19/25 Chief complaint: Dizziness positional vertigo Narrative: Chief complaint: Benign positional vertigo History of present illness: 55-year-old female I have no previous history of vertigo or gait disturbance felt she was going to pass out on her way back to bed from the bathroom and could not move her head as she felt like she was spinning from [id number] he is movements exacerbated until the alarmed her and she asked her to call 911 brought to the emergency room for evaluation. Emergency department she received a CT with no contrast an under examination and was obvious that she had positional vertigo with referred for observation admission as she could not ambulate Hemogram and blood chemistries were unremarkable emergency room EKG was also unremarkable Review of systems: No fever chills weight loss or weight gain No headache diplopia sinus congestion No difficulty swallowing No chest pain palpitations No cough or shortness No abdominal pain diarrhea constipation No paresthesia paresis No urinary Physical exam: No elderly female in no acute distress HEENT unremarkable No labored respiration Abdomen non distended Moves all extremity Alert and oriented Assessment and plan: Acute labyrinthitis benign positional vertigo * Solu-Medrol 20 mg IV q.12 * Antivert 12.5 p.o. q.6 * Sudafed 30 mg p.o. q.6 * Diamox 125 mg p.o. b.i.d. * Re-evaluate in the morning DVT prophylaxis * With SCDs only Code status: * Full code [facility] Social History household members: spouse Smoking Status: Never smoker alcohol intake: never Meds Home Medications and Allergies Home Medications Medication Instructions Recorded Confirmed Type alendronate 70 mg tablet (Fosamax) 70 mg PO QWEEK 11/17/21 04/19/25 History propranolol 60 mg capsule,24 60 mg PO DAILY 11/17/21 04/19/25 History hr,extended release calcium citrate 250 mg PO DAILY 08/10/23 04/19/25 History cholecalciferol (vitamin D3) 50 50 mcg PO DAILY 08/10/23 04/19/25 History mcg (2,000 unit) capsule magnesium oxide 400 mg (241.3 mg 400 mg PO DAILY 08/10/23 04/19/25 History magnesium) tablet multivitamin with minerals-folic 2 tab PO DAILY 08/10/23 04/19/25 History acid 120 mcg chewable tablet (Adult Multivitamin Gummies) rosuvastatin 5 mg tablet 5 mg PO DAILY 08/10/23 04/19/25 History amlodipine 2.5 mg tablet 2.5 mg PO DAILY 04/19/25 04/19/25 History Allergies Allergy/AdvReac Type Severity Reaction Status Date / Time No Known Drug Allergies Allergy Unverified 11/17/21 11:25 Exam Vital Signs (past 8 hours): - 04/19/25 10:00 04/19/25 10:30 04/19/25 10:31 Temperature Pulse Rate 54 L 52 L Respiratory Rate 20 32 H Blood Pressure 157/68 H 126/59 L Pulse Oximetry 97 96 Oxygen Delivery Method Room Air 04/19/25 10:31 04/19/25 11:01 04/19/25 11:30 Temperature Pulse Rate 53 L 62 58 L Respiratory Rate 39 H 18 26 H Blood Pressure Pulse Oximetry 97 98 98 Oxygen Delivery Method 04/19/25 12:00 04/19/25 12:00 04/19/25 16:31 Temperature 97.1 F L Pulse Rate 56 L 60 Respiratory Rate 16 21 Blood Pressure 112/45 L Pulse Oximetry 96 98 Oxygen Delivery Method Room Air Oxygen Delivery Method Room Air Objective Labs 04/19/25 05:15 04/19/25 05:15 Labs: Laboratory Results - last 24 hr 04/19/25 05:15 WBC 4.8 RBC 4.58 Hgb 13.9 Hct 41.3 MCV 90.2 MCH 30.3 MCHC 33.6 RDW 14.0 Plt Count 83 L Neut % (Auto) 49.8 L Lymph % (Auto) 29.3 [place] % (Auto) 15.7 H Eos % (Auto) 4.1 H Baso % (Auto) 1.1 Neut # (Auto) 2400 Lymph # (Auto) 1400 [place] # (Auto) 800 Eos # (Auto) 200 Baso # (Auto) 100 PT 10.5 INR 0.9 APTT 37 H Sodium 136 L Potassium 3.9 Chloride 103 Carbon Dioxide 28 BUN 25 H Creatinine 0.75 Estimated GFR > 60 BUN/Creatinine Ratio 33.3 H Glucose 107 H Lactate 0.8 Calcium 9.0 Magnesium 2.0 Total Bilirubin 0.8 AST 31 ALT 19 Alkaline Phosphatase 71 Total Creatine Kinase 87 Troponin I < 0.012 NT-Pro-B Natriuret Pep 687 H Total Protein 6.6 Albumin 4.1 Globulin 2.5 Albumin/Globulin Ratio 1.6 Lipase 97 Assessment & Plan Time-Based Coding :: 45 minutes spent with patient and on the chart (including review of chart, obtaining history, exam, reviewing outside data, placing orders, documenting exam and treatment plan, and counseling patient).
--- NOTE | 2025-04-19 18:00 | PC.NURSE ---
Pt oriented to room, call light, bed controls, and tv controls. Bed alarm on for safety. Pt up to bsc to void with 1/P/A and FWW. Pt agrees to call for assistance as needed.
--- NOTE | 2025-04-19 18:16 | PC.NURSE ---
Patient brought up from ER approx 12noon, oriented to room and call light, and call light placed within reach. VSS. Denies pain. States she still feels wobbly but denies nausea. Assisted to BSC with walker for security per patient and 1 SB assist, voided. Patient able to make needs known, and resting in bed, bed alarm active for safety.
[2025-04-19] MEDS: ATORVASTATIN 20 MG TABLET 10 MG PO (21:00)
[2025-04-20] MEDS: PSEUDOEPHEDRINE 30 MG TABLET PO ×3 (00:37→11:51)
[2025-04-20 04:00] VITALS: BP 111/51; PULSE 59; RESP 12; TEMP 36.3; O2SAT 97
[2025-04-20 08:00] VITALS: BP 129/61; PULSE 57; RESP 16; TEMP 36.2; O2SAT 97
[2025-04-20] MEDS: PROPRANOLOL 10 MG TABLET 30 MG PO (08:05)
[2025-04-20] MEDS: acetaZOLAMIDE 250 MG TABLET 125 MG PO (08:05)
[2025-04-20] MEDS: FAMOTIDINE 20 MG TABLET 10 MG PO (08:05)
[2025-04-20] MEDS: MECLIZINE HCL 12.5 MG TABLET PO (09:01)
--- NOTE | 2025-04-20 12:53 | P.DS_ITS ---
History of Present Illness History of Present Illness Chief complaint: Dizziness positional vertigo Narrative: From H&P: 55-year-old female I have no previous history of vertigo or gait disturbance felt she was going to pass out on her way back to bed from the bathroom and could not move her head as she felt like she was spinning from [id number] he is movements exacerbated until the alarmed her and she asked her to call 911 brought to the emergency room for evaluation. Emergency department she received a CT with no contrast an under examination and was obvious that she had positional vertigo with referred for observation admission as she could not ambulate Hemogram and blood chemistries were unremarkable emergency room EKG was also unremarkable Discharge Providers Provider Date of admission: 04/19/25 11:26 Discharge Date: 04/20/25 Primary care physician: Jaden Azevedo MD Consults: 04/20/25 10:11 Consult to Physical Therapy Evaluate & Treat Comment: vertigo Physician Instructions: Evaluate and Treat Discharge provider: Jules Rivas MD Summary Hospital Course Discharge Diagnosis: Acute labyrinthitis benign positional vertigo * Solu-Medrol 20 mg IV q.12 * Antivert 12.5 p.o. q.6 * Sudafed 30 mg p.o. q.6 * Diamox 125 mg p.o. b.i.d. HTN HLD Osteoporosis Hospital Course: She was admitted with BPV and was treated medical therapy. She was treated with PT assessment and maneuvers on the day of discharge. She was mostly improved. She was happy to discharge home with her , meclizine as needed for dizziness, use of a walker and a bedside commode. She was agreeable to home health therapy with physical therapy and we will see her PCP within a week. Status at Discharge Cognitive/behavioral status at discharge: oriented Functional status at discharge: uses cane/walker Overall status at discharge: patient is progressing back to baseline Time Spent with Patient Time spent: Greater than 30 minutes Exam Vital Signs (past 8 hours): - 04/20/25 08:00 04/20/25 08:00 Temperature 97.1 F L Pulse Rate 57 L Respiratory Rate 16 Blood Pressure 129/61 Pulse Oximetry 97 97 Oxygen Delivery Method Room Air Oxygen Flow Rate 0 0 Oxygen Delivery Method Room Air Oxygen Flow Rate 0 Narrative Exam Narrative: NAD, alert and oriented. Fluent speech. Lungs are clear, normal rate and effort. Heart is regular, no murmur gallop or rub. Abdomen is soft, non distended. Extremities are free of edema. No nystagmus. Objective ECG Impression: Intervals [place] Rate: 55 P: 56 [place]: 184 QRS: 19 QRSD: 92 T: 57 QT: 458 QTc: 438 Interpretive Statements Sinus bradycardia Imaging Chest x-ray: Radiologist's impression: No acute cardiopulmonary pathology. No significant discrepancies . CT scan - head: Radiologist's impression: No acute intracranial pathology. If there is high concern for parenchymal pathology, consider further evaluation with MRI. Labs 04/19/25 05:15 04/19/25 05:15 [facility] Social History household members: spouse alcohol intake: never Discharge Assessment & Plan Assessment and Plan Assessment: 1. BPV, improved. Plan of Treatment: Discharge home with meclizine 12 point 5q8 as needed, close follow up with PCP, an additional safety measures at home. Discharge Plan Discharge Plan Patient Disposition: Home Provider Discharge Comment: Stable for discharge home, meclizine as needed and close follow up with PCP. Discharge orders & Medications Prescriptions: New meclizine 12.5 mg Tablet 12.5 mg PO TID PRN (Reason: Vertigo) Qty: 30 0RF Continued alendronate [Fosamax] 70 mg tablet 70 mg PO QWEEK propranolol 60 mg capsule,extended release 24 hr 60 mg PO DAILY Patient Comments: takes at noon daily rosuvastatin 5 mg tablet 5 mg PO DAILY Patient Comments: takes at noon magnesium oxide 400 mg (241.3 mg magnesium) tablet 400 mg PO DAILY calcium citrate 250 mg calcium Tablet 250 mg PO DAILY cholecalciferol (vitamin D3) 50 mcg (2,000 unit) Capsule 50 mcg PO DAILY multivit with min-folic acid [Adult Multivitamin Gummies] 120 mcg Tablet,Chewable 2 tab PO DAILY amlodipine 2.5 mg tablet 2.5 mg PO DAILY Patient Comments: takes at noon Follow up/Referrals: Jaden Azevedo MD [Primary Care Provider] - Discharge Health Status Multidrug resistant organism: No MDRO Diet/Activity/Treatments Diet: Regular Visit Report/Discharge Packet Instructions: DI for Benign Paroxysmal Positional Vertigo, Meclizine Stand Alone Forms: Patient Portal/API, Stroke Signs & Symptoms Discharge Data Primary Care Provider: Jaden Azevedo Attending Provider: Kalia Maher Admit Date/Time: 04/19/25 11:26
--- NOTE | 2025-04-20 13:31 | PC.NURSE ---
Day shift: Discharge instructions gone over with patient and patient's SO. Patient stated understanding all questions answered. PIV remeoved prior to discharge. All belongings with patient. PCT Ty to escort patient to exit via wheelchair.
--- NOTE | 2025-04-20 13:31 | CM.DANOTE ---
B DCP Assessment Note pt is a 85yo F admitted with vertigo in both ears. PCP Jaden Azevedo at [facility] Payer Medicare and [facility] BUTTON TACKER reviewed EMR. Per provider in morning rounds, anticipate dc later this afternoon. Per RN, pt ambulating well with nursing/FWW. lives at home with spouse and adult children support. Per PT verbally rec, rec home with HH for vertigo. BUTTON TACKER met with pt and introduced self and role. only met with briefly due to pt having to use the bathroom. pt reports hx of using [facility] - preference to resume with them. BUTTON TACKER gave copy of [facility] brochure. Pt denies other CM/DCP needs or questions. BUTTON TACKER spoke with andrez from [facility] , their team able to accept for PT as long as the dc summary has which ear is impacted. per Rob, both ears are impacted. BUTTON TACKER completed HH order, added both ears to order. BUTTON TACKER completed F2f. Alondra scanned f2f into chart for [facility] . P: dc home today with spouse/adult children support, [facility] to follow for PT. No further CM needs identified at this time, will continue to follow as needed ADAM Armstrong Discharge Planning/Care Management CM Discharge Assessment Start: 04/19/25 11:32 Freq: Status: Active Protocol: Document 04/20/25 13:30 SL (Rec: 04/20/25 13:31 SL Desktop) Discharge Planning Assessment Assigned Calender Machine Operator Helper ADAM Potts DPOA/Assigned Designee Name Maricruz man Contact Information [phone] Advance Directives? Yes Advance Directives on File No History Provided By Patient Prior Living Arrangements House Household Members spouse Independent with ADL's Yes Is patient alert and oriented? Yes DME Already Rented / Owned FWW / Walker Patient/Family Preference Home with Home Health Discharge Plan Home with Home Health Transportation Arrangement Family will transport. Referrals Initiated Home Health If patient plan is home with home health Yes : Has signed face to face form been completed? SNF/HH Preference preference [facility] . [facility] can accept Review Status In Process Please Provide Date Initial DC 04/20/25 Assessment Was Performed Next Review Type Continued Stay Review
--- NOTE | 2025-04-20 14:14 | PT.IIE ---
Physical Therapy Inpatient Evaluation/Re-Eval M1 PT/OT-IP Prior Functional Status Start: 04/20/25 09:55 Freq: NEEDED Status: Discharge Protocol: Document 04/20/25 09:50 MB (Rec: 04/20/25 14:01 MB Desktop) Medical Review Prior Functional Status Medical History Reviewed Yes Social History Household Members spouse Living Arrangements House M2 PT-IP Current Condition Start: 04/20/25 09:55 Freq: NEEDED Status: Discharge Protocol: Document 04/20/25 09:50 MB (Rec: 04/20/25 14:14 MB Desktop) Physical Therapy Current Condition Current Condition Evaluation Date 04/20/25 Treatment Diagnosis Positional vertigo M3 PT-IP Subjective Start: 04/20/25 09:55 Freq: NEEDED Status: Discharge Protocol: Document 04/20/25 09:50 MB (Rec: 04/20/25 14:14 MB Desktop) Subjective Physical Therapy Visit Type Type Initial Evaluation Visit Start Time 09:50 Visit Stop Time 10:45 Number of UPHOLSTERY SEWER Visits 0 Physical Therapy Visit Comments Patient Comments Pt states that she is feeling better today and she is agreeable to PT. She states that two nights ago, she woke up with positional vertigo. She did feel like she might pass out when she went back today. She feel dizzy and imbalance with turning head with getting up. She lives at home with who got her a RW from [employer]. She denies ESTEVEZ, vision and hearing change, neck pain, paresthesias, new weakness. Therapy Pain Assessment Pain When Pain Assessed At Rest Pain Present Pain Present Denied Pain M4 PT-IP Mobility and Gait Start: 04/20/25 09:55 Freq: NEEDED Status: Discharge Protocol: Document 04/20/25 09:50 MB (Rec: 04/20/25 14:14 MB Desktop) PT-Bed Mobility Assessment Rolling Type of Rolling Bilateral Level of Assist Independent Supine to Sit Supine to Sit Independent Sit to Supine Sit to Supine Independent Scooting Scooting to Edge of Bed Independent Scooting Up and Down in Bed Independent PT-Transfer Assessment Sit to and From Stand Sit to and from Stand Independent Equipment Transfer Assistive Device Gait Belt,Front Wheeled Walker Transfers Transfer Destination Bed,Chair Transfer Technique Ambulation Transfer Ability Level of Assist Contact Guard Assistance, Minimal Assistance Comments Mobility Comments LOB to the left with standing up from the bed and min A to prevent fall, otherwise CGA with gait belt and walker for transfers. Orthostatic assessment with BP and HR in RUE: supine 119/49, 60; standing 110/58, 62; standing 1' 106/64, 63; standing 2' 120/63, 61. Gait Assessment Gait Gait Assistance Required: Contact Guard Assist Distance (Feet) 100 Assistive Devices Assistive Device Gait Belt,Front Wheeled Walker Gait Deviations General Gait Pattern Decreased Feet Clearance, Flexed Trunk,Wide Based Gait Factors Limiting Gait Function Factors Limiting Gait Function Incoordination,Poor Balance Comments Gait Comments Slow turns right and left, slower gait in general with walker, slow head turns with gait when asked to perform Stair Climbing Assessment Evaluation Level of Assist On Stairs Contact Guard Assistance Devices Stair Climbing Assistive Devices Left Railing Technique/Endurance Stair Climbing Direction Ascend and Descend Stair Climbing Technique Step to Step Number of Steps Climbed 3 Query Text: Stair Climbing Set # Repetitions (reps) 1 Comments Stair Climbing Comments Pt hands on left rail to ascend and both hands on same rail to descend PT-Balance Assessment Sitting Balance and Reactions Static Sitting Balance Ability Normal Dynamic Sitting Balance Ability Normal Standing Balance and Reactions Static Standing Balance Ability Fair Dynamic Standing Balance Ability Poor Device Used One episode LOB to the left M5 PT-IP Objective Assessments Start: 04/20/25 09:55 Freq: NEEDED Status: Discharge Protocol: Document 04/20/25 09:50 MB (Rec: 04/20/25 14:14 MB Desktop) Orientation Orientation/Cognition Level of Alertness Alert Orientation Name,Age,Birthday,Month,Date, Year,Day of Week,Place, Situation Language Function Ability No Deficits Noted Safety Awareness Decreased Safety Awareness Memory Description No Deficits Noted Gross Range of Motion Upper Extremity ROM Assessment Within Functional Limits Lower Extremity ROM Assessment Within Functional Limits Strength Upper Extremity Strength Assessment Within Functional Limits Lower Extremity Strength Assessment Left Impaired Comments Strength Comments 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 and she has trouble with MMT and coordination testing; left hip flexion 4-/5 Coordination Assessment Gross Coordination Gross Coordination Impaired Assessment Finger to Nose Test Minimal Impairment Coordination Comments Unable to perform B heel to hollis, worse on the left and pt reports that she feels it is d/t old left hip replacement changes Sensation Assessment Sensation Gross Sensation WNL Muscle Tone Muscle Tone WNL Yes Other Assessments Other Other Assessments BPPV assessment: negative B Roll Test and left Kingston- Hallpike for dizziness and nystagmus, positive right Kingston- Hallpike for mild nystagmus that is upbeat but not much torsional, treated with modified Cooper M6 PT-IP Treatment Start: 04/20/25 09:55 Freq: NEEDED Status: Discharge Protocol: Document 04/20/25 09:50 MB (Rec: 04/20/25 14:14 MB Desktop) Physical Therapy Treatment Other Treatments Other Treatment Performed Self-care and home management today: ed on findings, HH recommendation, benefits of using RW at this time, when cleared from HHPT, may benefit from OPPT for vestibular PT and treatment, ed in gentle cervical movement rotation and flexion and extension when sitting M7 PT-IP Assessment and Plan Start: 04/20/25 09:55 Freq: NEEDED Status: Discharge Protocol: Document 04/20/25 09:50 MB (Rec: 04/20/25 14:14 MB Desktop) PT Summary Assessment and Plan Potential Rehabilitation Potential Good Status of Condition at Evaluation Evolving Summary Impairments ROM,Strength,Balance, Coordination,Transfers,Gait, Activity Tolerance Assessment Summary Pt has already d/cd at time of PT inputting information from evaluation this a.m. Pt is an 85 y/o female adm with dizziness and found to have positional vertigo. Her nystagmus is very faint and somewhat atypical and only present with right Kingston- Hallpike and so treated for right posterior canalithiasis BPPV. She is very unsteady and has LOB to the left with standing and this is not expected with such a mild and treated case of BPPV. She does have cervical limitations and some decreasing BP with getting up. Recommended HHPT and progress to OPPT, pt to use RW at home and have assistance from . Frequency of Treatment Frequency Of Treatment Discharge Discharge Recommendations PT Discharge Recommendations Home with Assistance,Home Health Transportation Needs at Discharge Private Vehicle
== END 2025-04-20 13:55 | disposition home or self-care (01) ==
LOC: ED 11:25 → AC 11:26
PROVIDERS: Emergency Medicine; Admitting Provider Internal Medicine; Emergency Provider Emergency Medicine; Family Provider Family Medicine; PCP Family Medicine; Referring Provider Emergency Medicine; Visit Provider Internal Medicine
DX: H83.09 Labyrinthitis, unspecified ear (principal); H81.10 Benign paroxysmal vertigo, unspecified ear; I10 Essential (primary) hypertension; E78.5 Hyperlipidemia, unspecified; M81.0 Age-related osteoporosis without current pathological fracture
CPT/HCPCS: 36415; 70450; 71045; 80053; 82550; 83605; 83690; 83735; 83880; 84484; 85025; 85610; 85730; 93005; 95992; 96361; 96374; 96375; 96376; 97162; 97535; 99284; G0378; A9270; J2405; J2919